=== PATIENT | female | born 1935 | race Caucasian/White ===

== ENCOUNTER 2017-06-30 13:23 | Observation (INO) | payer MEDICARE, MEDICAID ==
[2017-06-30 13:38] LABS: Hematocrit 38.4 % (37.0-47.0); Hemoglobin 12.9 gm/dL (12.5-16.0); Mean Cell Volume 92.8 fl (78-100); Mean Corpuscular Hemoglobin 31.2 pg (27-31); Mean Corpuscular Hgb Conc 33.6 g/dl (32-36); Mean Platelet Volume 10.6 fl (6.0-9.5); Neutrophil # 4.9 K/mm3 (1.3-6.0); Neutrophil % 56.1 % (42-75.0); Platelet Count 183 K/mm3 (150-450); Red Blood Count 4.14 M/mm3 (4.2-5.4); Red Cell Distribution Width 12.6 % (11.5-14.0); White Blood Count 8.7 K/mm3 (4.0-10.5)
--- NOTE | 2017-06-30 13:55 | ERNOTE ---
Chest Pain/Cardiac HPI Chief Complaint: Chest Pain Time Seen by Provider: 06/30/17 13:24 Source: patient Exam Limitations: no limitations Immunizations: IMMUNIZATION HX Immunizations Up to Date Yes History of Influenza Vaccine Yes Hx Pneumococcal Vaccination No Allergies/Adverse Reactions: Allergies lidocaine Allergy (Verified 04/02/16 18:43) Home Medications: HOME MEDICATIONS Aspirin [Aspirin Chewable] 81 mg PO DAILY 04/02/16 [Last Taken Unknown] Benazepril HCl 10 mg PO DAILY 04/02/16 [Last Taken Unknown] Nitrofurantoin/Nitrofuran Mac [Macrobid] 100 mg PO BID #14 capsule 04/02/16 [ Last Taken Unknown] Simvastatin [Zocor] 40 mg PO DAILY 04/02/16 [Last Taken Unknown] Narrative: Patient is very reliable, she has a strong history of coronary artery disease. She presents to the emergency room for having had chest pains proximally 30 minutes prior to presentation. Chest pain was substernal started at rest and did not radiate patient subsequently took 2 nitroglycerin tablets sublingually and chest pain dissipated. By the time she came into our ER she was chest pain- free. Review of Systems - Review of Systems Constitutional: Present: no symptoms reported EYE: Present: no symptoms reported ENT: Present: no symptoms reported Respiratory: Present: no symptoms reported Cardiology: Present: See HPI Gastrointestinal/Abdominal: Present: no symptoms reported Genitourinary: Present: no symptoms reported Musculoskeletal: Present: no symptoms reported Skin: Present: no symptoms reported - Patient's Past Medical History Patient History - Medical: No pertinent hx Patient History - Cardiac/Respiratory: Angina Patient History - Cancer: No Hx of Cancer Patient History - Surgical Procedures: Appendectomy, Cataracts, Cardiac stent, C -Section, Hysterectomy, Other Patient History - Other: None - Family History Father Family History - Medical: No pertinent hx Family History - Cardiac/Respiratory: History Unknown, Cardiac Arrest Family History - Cancer: No pertinent family hx - Social History Living Situations: alone Abuse History: No History of abuse Psych History: No pertinent hx Smoking Status: Never smoker Have you smoked in the past 12 months: No Do you dip or chew tobacco: No Patient requests Smoking Cessation Consult: No Initiate information on Smoking Cessation: No Alcohol Use: none Drug Use: none - Immunizations Immunizations Up to Date: Yes Hx Pneumococcal Vaccination: No History of Influenza Vaccine: Yes Physical Exam - Physical Exam General Appearance: Present: wd/wn, alert, no apparent distress Head Exam: Present: normal inspection, no evidence of injury Ears, Nose, Throat: Present: normal ENT inspection Neck: Present: normal inspection, nontender Respiratory: Present: no respiratory distress, normal breath sounds, no accessory muscle use, chest nontender, lungs clear Cardiovascular/Chest: Present: regular rate, rhythm, no murmur, normal peripheral pulses Gastrointestinal/Abdominal: Present: normal bowel sounds, nontender, nondistended ED Progress - Results and Orders Patient's Lab Results:: I have reviewed the patient's lab results. - Vital Signs Patient's Vital Signs:: I have reviewed the patient's vital signs. Vital Signs: Vital Signs 06/30/17 13:24 Temperature 36.8 C Pulse Rate 76 Respiratory 19 Rate Blood Pressure 149/71 O2 Sat by Pulse 98 Oximetry - EKG EKG: NSR EKG read: Interp. by me - X-Ray X-Ray #1 X-Ray: chest - Progress/Reassessment Chief Complaint: Chest Pain Plan - Plan Plan: Patient does have a history of coronary artery disease she has hypertension and hyperlipidemia, her chest pain did disappear with 2 nitroglycerin sublingually and she will be admitted to the [facility] observation unit Departure Clinical Impression: Chest pain at rest - Departure Disposition: [facility] Condition: Good
[2017-06-30 13:57] LABS: ALT 16 U/L (19-67); AST 16 U/L (0-48); Albumin * 3.9 gm/dl (3.4-5.0); Alkaline Phosphatase * 69 U/L (50-170); Anion Gap 13.4 mmol/L (6.8-13.8); Bilirubin, Total 0.7 mg/dL (0.0-1.1); Blood Urea Nitrogen 13 mg/dL (3-23); Ca. Corrected For Albumin 8.8 mg/dL (8.4-10.2); Carbon Dioxide 24.2 mmol/L (24-32.6); Chloride 102 mmol/L (97-106); Glucose * 172 mg/dL (70-110); Potassium 3.6 mmol/L (3.4-4.6); Sodium 136 mmol/L (132-142); Total Protein 7.2 gm/dL (6.2-8.2); Troponin I Less than 0.017 ng/ml (0.00-0.10)
--- NOTE | 2017-06-30 22:18 | HP ---
Chief Complaint - Chief Complaint Date of Service: 06/30/17 Time of Service: 21:00 Chief Complaint: chest pain History of Present Illness: 81 years old female adm to the hospital from ER with reports of chest pain that dissipated before been admitted. PMH significant for CAD S/P stent, Hyperlipidemia and hypertension. pt stated she was at home resting when she felt sudden onset of non radiating chest pain. No associated s/s, she denies palpitation, nausea, vomiting, diaphoresis, headache and blurred vision. pt stated she took nitro tabs x2 at home but the pain began to dissipated and resolved fully while in ER. She have follow up appt with service rig operator in 1-3 weeks. In ER troponin x2 negative and EKG- NSR. Plan of care discussed with pt she verbalized understanding and agree. - Patient's Past Medical History Patient History - Medical: No pertinent hx Patient History - Cardiac/Respiratory: Angina, Hypertension, Hyperlipidemia Patient History - Cancer: No Hx of Cancer Patient History - Surgical Procedures: Appendectomy, Cataracts, Cardiac stent, C -Section, Hysterectomy, T & A, Other Patient History - Other: None - Family History Father Family History - Medical: No pertinent hx Family History - Cardiac/Respiratory: History Unknown, Cardiac Arrest Family History - Cancer: No pertinent family hx Mother Family History - Medical: Alzheimer's Disease Family History - Cardiac/Respiratory: No pertinent hx Family History - Cancer: No pertinent family hx - Social History Living Situations: alone - Snf housing Abuse History: No History of abuse Psych History: No pertinent hx Smoking Status: Never smoker Have you smoked in the past 12 months: No Do you dip or chew tobacco: No Patient requests Smoking Cessation Consult: No Initiate information on Smoking Cessation: No Alcohol Use: none Drug Use: none - Immunizations Immunizations Up to Date: Yes Hx Pneumococcal Vaccination: No History of Influenza Vaccine: Yes Review Of Systems (GEN) - Review of Systems Generalized/Overall Review: Present: No Symptoms Reported EENTM: Present: No Symptoms Reported Respiratory: Present: No Symptoms Reported Cardiac: Present: No Symptoms Reported Abdominal: Present: Constipation Genitourinary: Present: No Symptoms Reported Musculoskeletal: Present: No Symptoms Reported Neurological: Present: No Symptoms Reported Skin: Present: No Symptoms Reported Endocrine: Present: No Symptoms Reported Allergies/Adverse Reactions: Allergies Allergy/AdvReac Type Severity Reaction Status Date / Time lidocaine Allergy Verified 06/30/17 17:42 Home Medications: HOME MEDICATIONS Aspirin [Aspirin Chewable] 81 mg PO DAILY 04/02/16 [Last Taken Unknown] Benazepril HCl 10 mg PO DAILY 04/02/16 [Last Taken Unknown] Simvastatin [Zocor] 40 mg PO DAILY 04/02/16 [Last Taken Unknown] Exam - Exam Vital Signs: Vital Signs - Last Taken Temp 37.0 C 06/30/17 18:28 Pulse 80 06/30/17 18:28 Resp 20 06/30/17 18:28 BP 145/78 06/30/17 18:28 Pulse Ox 99 06/30/17 18:28 Constitutional: Present: Alert, Oriented x3, Cooperative, No distress, Elderly ENT Exam: Present: hearing grossly normal Eye Exam: bilateral eye: normal inspection Neck: Present: full range of motion Back Exam: Present: normal inspection Breasts: Present: Exam deferred Respiratory: Present: chest non-tender, lungs clear, normal breath sounds, no respiratory distress, no accessory muscle use Cardiovascular/Chest: Present: normal peripheral pulses, regular rate, rhythm, no chest tenderness, no edema, no gallop Peripheral Pulses: dorsalis-pedis (R): 3+, dorsalis-pedis (L): 3+ Abdomen: Present: Normal bowel sounds, soft, nontender, nondistended, no rebound tenderness /Rectal: Present: Exam deferred Extremity: Present: normal range of motion, non-tender, normal inspection Skin Exam: Present: normal color, warm/dry Neurologic: Present: oriented x 3 Appearance: Present: appropriate appearance Eye contact: Present: cooperative Thoughts: Present: normal thought pattern Diagnostic Studies: Laboratory Results WBC 8.7 K/mm3 (4.0-10.5) 06/30/17 13:30 RBC 4.14 M/mm3 (4.2-5.4) L 06/30/17 13:30 Hgb 12.9 gm/dL (12.5-16.0) 06/30/17 13:30 Hct 38.4 % (37.0-47.0) 06/30/17 13:30 MCV 92.8 fl (78-100) 06/30/17 13:30 MCH 31.2 pg (27-31) H 06/30/17 13:30 MCHC 33.6 g/dl (32-36) 06/30/17 13:30 RDW 12.6 % (11.5-14.0) 06/30/17 13:30 Plt Count 183 K/mm3 (150-450) 06/30/17 13:30 MPV 10.6 fl (6.0-9.5) H 06/30/17 13:30 Immature Gran % (Auto) 0.20 % (0.001-0.429) 06/30/17 13:30 Immature Gran # (Auto) 0.02 K/mm3 (0.000-0.0310) 06/30/17 13:30 Neutrophils % 56.1 % (42-75.0) 06/30/17 13:30 Lymphocytes % 33.8 % (20-51) 06/30/17 13:30 Monocytes % 9.7 % (0.0-9) H 06/30/17 13:30 Eosinophils % 0.0 % (0.0-3.0) 06/30/17 13:30 Basophils % 0.2 % (0.0-1.0) 06/30/17 13:30 Nucleated RBC % 0.0 k/mm3 (0-1) 06/30/17 13:30 Neutrophils # 4.9 K/mm3 (1.3-6.0) 06/30/17 13:30 Lymphocytes # 3.0 k/mm3 (1.5-3.5) 06/30/17 13:30 Monocytes # 0.9 k/mm3 (0.0-1.0) 06/30/17 13:30 Eosinophils # 0.0 k/mm3 (0.0-0.7) 06/30/17 13:30 Absolute Basophils 0.0 k/mm3 (0.0-0.1) 06/30/17 13:30 Sodium 136 mmol/L (132-142) 06/30/17 13:30 Plasma Sodium 137 mmol/L (130-142) 06/30/17 13:30 Potassium 3.6 mmol/L (3.4-4.6) 06/30/17 13:30 Chloride 102 mmol/L (97-106) 06/30/17 13:30 Carbon Dioxide 24.2 mmol/L (24-32.6) 06/30/17 13:30 Anion Gap 13.4 mmol/L (6.8-13.8) 06/30/17 13:30 BUN 13 mg/dL (3-23) 06/30/17 13:30 Creatinine 0.93 mg/dL (0.4-1.4) 06/30/17 13:30 Est GFR (Non-Af Amer) 61 mL/min (60-130) 06/30/17 13:30 BUN/Creatinine Ratio 14.0 (9.0-21.6) 06/30/17 13:30 Random Glucose 172 mg/dL (70-110) H 06/30/17 13:30 Calcium 9.0 mg/dL (7.9-10.9) 06/30/17 13:30 Calcium Adj for Albumin 8.8 mg/dL (8.4-10.2) 06/30/17 13:30 Total Bilirubin 0.7 mg/dL (0.0-1.1) 06/30/17 13:30 AST 16 U/L (0-48) 06/30/17 13:30 ALT 16 U/L (19-67) L 06/30/17 13:30 Alkaline Phosphatase 69 U/L (50-170) 06/30/17 13:30 Troponin I Less than 0.017 ng/ml (0.00-0.10) 06/30/17 19:05 Total Protein 7.2 gm/dL (6.2-8.2) 06/30/17 13:30 Albumin 3.9 gm/dl (3.4-5.0) 06/30/17 13:30 CXR: borderline cardiomegaly, COPD Assessment/Plan - Narrative Narrative: Chest pain Pt report chest pain while at rest, resolved in 30 minutes with nitro tab x2 CXR: Cardiomegaly, COPD. No acute cardiopulmonary process In ER troponin x2 negative EKG -NSR Continue with telemetry monitoring Continue with home dose of statin Hx CAD-pt is S/P cardiac stent several years ago Serial trop and EKG pending Consider out-pt stress test and follow up with service rig operator. Hyperlipidemia- continue with home dose of zocor. CAD- s/p stent Constipation Miralax Code status: DNR GI ppx:pepcid VTE ppx: Ambulate Time 35 minutes and case discussed with attending - Assessment/Plan (1) Chest pain at rest Problem: Acute (2) Constipation Problem: Chronic (3) Hyperlipidemia Problem: Chronic
[2017-06-30] MEDS: POLYETHYLENE GLYCOL 3350 119 GM BTL PO SCH (23:32)
[2017-07-01 06:27] LABS: Chol/HDL Risk Ratio 2.3 mg/dL (3.3-4.4)
[2017-07-01] MEDS ORDERED: SIMVASTATIN 40 MG TABLET PO SCH ×2 (09:00→21:00)
[2017-07-01] MEDS ORDERED: ASPIRIN 81 MG TAB.CHEW PO SCH (09:00)
[2017-07-01] MEDS ORDERED: ENALAPRIL MALEATE 5 MG TABLET PO SCH (09:00)
[2017-07-01] MEDS: POLYETHYLENE GLYCOL 3350 119 GM BTL PO SCH (09:46)
--- NOTE | 2017-07-01 13:10 | DS ---
(1) Chest pain, unspecified Problem: Acute Qualifiers: Chest pain type: unspecified Qualified Code(s): R07.9 - Chest pain, unspecified (2) History of coronary artery disease Problem: Chronic (3) Hypertension Problem: Chronic Qualifiers: Hypertension type: unspecified Qualified Code(s): I10 - Essential (primary ) hypertension (4) Hyperlipidemia Problem: Chronic Qualifiers: Hyperlipidemia type: unspecified Qualified Code(s): E78.5 - Hyperlipidemia , unspecified Description of Stay: DATE OF ADMISSION: 06/30/2017. DATE OF DISCHARGE: 07/01/2017. DIAGNOSTICS: NONE. DISCHARGE SUMMARY: Heavenly Bledsoe a 81-year-old WF with a history of HTN, HLD, CAD[non-Q wave PA with stents to LAD and LT CX in 2002] who was admitted to the hospital for evaluation of chest pain relieved by nitroglycerin 2 prior to arrival. EKG and troponin are unremarkable in ER. Patient was admitted overnight and she had no recurrence of chest pain. EKG and cardiac markers were also unremarkable. The patient was discharged in a stable condition the next day and she has a follow-up with her generation manager in the next month. Procedures Performed: none Results and Findings: Laboratory Tests 06/30/17 13:30 WBC 8.7 Hgb 12.9 Hct 38.4 Plt Count 183 06/30/17 13:30 Plasma Sodium 137 Potassium 3.6 Chloride 102 Carbon Dioxide 24.2 BUN 13 Creatinine 0.93 Est GFR (Non-Af Amer) 61 Random Glucose 172 H Calcium Adj for Albumin 8.8 Total Bilirubin 0.7 AST 16 ALT 16 L Alkaline Phosphatase 69 Total Protein 7.2 Albumin 3.9 06/30/17 06/30/17 06/30/17 13:30 19:05 23:05 Troponin I Less than 0.017 Less than 0.017 0.025 07/01/17 06:00 Triglycerides 108 Cholesterol 136 LDL Cholesterol 57 L HDL Cholesterol 57 Discharge Disposition: Home self care Disposition: Home self-care Condition: Undetermined Discharge Diet: Low salt, Low fat/chol, High Fiber Problem Oriented Discharge Instructions to Patient/Family: Chest Wall Pain, [id number] Additional Patient Instructions (free text): NUC Treadmill Stress Test 07/05 at 7:00. Nothing to eat or drink after midnight prior to test. No caffeine 8hr before test and no medication the morning of test but bring with you. please wear comfortable cloths and shoes for test. Follow up with Emely Sanz 07/15 at 4:30 Complete Home Medications List: Complete Home Medication List: Aspirin [Aspirin Chewable] 81 mg PO DAILY 04/02/16 Benazepril HCl 10 mg PO DAILY 04/02/16 Simvastatin [Zocor] 80 mg PO DAILY 04/02/16 Celecoxib 200 mg PO DAILY 07/20/17 Nitroglycerin 0.4 mg SL PRN PRN 07/20/17 Amb Orders for Discharge: NUC Treadmill Stress Complete Time Frame: 07/09/17, Location: Determined By Patient
[2017-07-01 15:14] VITALS: BP 135/44
== END 2017-07-01 15:15 | disposition home or self-care (01) ==
LOC: ER 13:23 → MS 14:08
PROVIDERS: ADMIT Internal Medicine; ATTEND Internal Medicine
DX: R07.9 Chest pain, unspecified (principal); I25.119 Atherosclerotic heart disease of native coronary artery with unspecified angina pectoris; I10 Essential (primary) hypertension; E78.5 Hyperlipidemia, unspecified; K59.00 Constipation, unspecified; Z68.22 Body mass index [BMI] 22.0-22.9, adult
CPT/HCPCS: 36415; 71020; 80053; 80061; 84484; 85025; 93005; 99283; G0378

== ENCOUNTER 2017-07-20 08:05 | Emergency (ER) | payer MEDICARE, MEDICAID ==
[2017-07-20] MEDS ORDERED: ASPIRIN 81 MG TAB.CHEW PO ONE (08:19)
[2017-07-20] MEDS ORDERED: ASPIRIN 81 MG TAB.CHEW ONE (08:25)
--- NOTE | 2017-07-20 08:31 | ERNOTE ---
Chest Pain/Cardiac HPI Chief Complaint: Chest Pain Time Seen by Provider: 07/20/17 08:05 Source: patient Exam Limitations: no limitations Immunizations: IMMUNIZATION HX Immunizations Up to Date Yes History of Influenza Vaccine Yes Hx Pneumococcal Vaccination More Information Required Allergies/Adverse Reactions: Allergies lidocaine Allergy (Verified 06/30/17 17:42) Home Medications: HOME MEDICATIONS Aspirin [Aspirin Chewable] 81 mg PO DAILY 04/02/16 [Last Taken Unknown] Benazepril HCl 10 mg PO DAILY 04/02/16 [Last Taken Unknown] Simvastatin [Zocor] 80 mg PO DAILY 04/02/16 [Last Taken Unknown] Celecoxib 200 mg PO DAILY 07/20/17 [Last Taken Unknown] Nitroglycerin 0.4 mg SL PRN PRN 07/20/17 [Last Taken Unknown] Narrative: About an hour ago patient started to have central chest pain. She was awake already but still in bed, states that she also was very sweaty, took three nitro and started to not feel well, found herself sitting on the floor just outside the kitchen, might have passed out, denies any injury, does not think she hit her head as she was sitting. Currently her chest pain has resolved, she 'just feel weird' She has a history of CAD, had stents placed by Dr Chavira a few years ago, was admitted last months for chest pain and states that she had a stress test that was normal Timing: gone now Severity/Quality: pressure Location: central Chest Pain Radiation: no radiation Activities at Onset: rest Modifying Factors - Improves: Present: nitroglycerin Modifying Factors - Worsens: Present: nothing Nitro Today/Relief: 0.4 mg x 3 Aspirin Treatment Today: no aspirin today Associated Symptoms: Present: syncope - after nitro?, diaphoresis. Absent: dizziness, heartburn, nausea, vomiting Prior Chest Pain/Cardiac Workup: Reports: prior chest pain, cardiac cath Prior Treatment: Reports: recently seen - Patient's Past Medical History Patient History - Medical: No pertinent hx Patient History - Cardiac/Respiratory: Angina, Hypertension, Hyperlipidemia Patient History - Cancer: No Hx of Cancer Patient History - Surgical Procedures: Appendectomy, Cataracts, Cardiac stent, C -Section, Hysterectomy, T & A, Other Patient History - Other: None - Family History Father Family History - Medical: No pertinent hx Family History - Cardiac/Respiratory: History Unknown, Cardiac Arrest Family History - Cancer: No pertinent family hx Mother Family History - Medical: Alzheimer's Disease Family History - Cardiac/Respiratory: No pertinent hx Family History - Cancer: No pertinent family hx - Social History Living Situations: alone Abuse History: No History of abuse Psych History: No pertinent hx Smoking Status: Never smoker Have you smoked in the past 12 months: No Do you dip or chew tobacco: No Alcohol Use: none Drug Use: none - Immunizations Immunizations Up to Date: Yes Hx Pneumococcal Vaccination: More Information Required to Determine History of Influenza Vaccine: Yes Physical Exam - Physical Exam General Appearance: Present: wd/wn, alert, no apparent distress Head Exam: Present: normal inspection, no evidence of injury Neck: Present: normal inspection, nontender, supple, full range of motion Respiratory: Present: no respiratory distress, normal breath sounds, no accessory muscle use, lungs clear Cardiovascular/Chest: Present: regular rate, rhythm, no murmur Gastrointestinal/Abdominal: Present: nontender Extremity Exam: Present: no edema Neurological Exam: Present: alert, oriented, normal mood/affect, no motor/ sensory deficits Skin Exam: Present: normal color, warm/dry ED Progress - Results and Orders Patient's Lab Results:: I have reviewed the patient's lab results. - Vital Signs Patient's Vital Signs:: I have reviewed the patient's vital signs. Vital Signs: Vital Signs 07/20/17 08:13 Temperature 35.5 C L Pulse Rate 62 Respiratory 26 H Rate Blood Pressure 164/79 O2 Sat by Pulse 100 Oximetry - EKG EKG: NSR, RBBB, ST depression - V3-6 possibley related to RBBB, seem more pronounced than on EKG from 06/30/17, other - posterior EKG shows no ST elevating on V7-9 EKG read: Interp. by me - X-Ray X-Ray #1 X-Ray: chest - no acute changes, hyperinflated Interpretation: Interp. by me - Progress/Reassessment Chief Complaint: Chest Pain Progress Note-Subjective: 07/20/17 09:13 nuclear stress test 07/05/2017 read as normal 07/20/17 09:22 no chest pain, discussed test results Departure Clinical Impression: Chest pain, unspecified Qualifiers: Chest pain type: precordial pain Qualified Code(s): R07.2 - Precordial pain - Departure Disposition: Home self-care Condition: Stable Instructions: Chest Wall Pain, [id number] Additional Instructions: call Dr Barker after the weekend for follow up Referrals: Priyank Barker MD [Associate] -
[2017-07-20 08:39] LABS: Hematocrit 35.9 % (37.0-47.0); Hemoglobin 12.1 gm/dL (12.5-16.0); Mean Corpuscular Hemoglobin 31.3 pg (27-31); Mean Corpuscular Hgb Conc 33.7 g/dl (32-36); Mean Platelet Volume 10.5 fl (6.0-9.5); Neutrophil % 46.8 % (42-75.0); Platelet Count 158 K/mm3 (150-450); Red Blood Count 3.86 M/mm3 (4.2-5.4); Red Cell Distribution Width 12.5 % (11.5-14.0); White Blood Count 6.4 K/mm3 (4.0-10.5)
[2017-07-20 08:51] LABS: Prothrombin Time (Patient) 9.9 Seconds (9.0-11.0)
[2017-07-20 08:59] LABS: ALT 16 U/L (19-67); AST 16 U/L (0-48); Albumin * 3.7 gm/dl (3.4-5.0); Alkaline Phosphatase * 74 U/L (50-170); Anion Gap 13.7 mmol/L (6.8-13.8); BUN/Creatinine Ratio 13.1 (9.0-21.6); Bilirubin, Total 0.4 mg/dL (0.0-1.1); Blood Urea Nitrogen 14 mg/dL (3-23); Ca. Corrected For Albumin 9.2 mg/dL (8.4-10.2); Calcium * 9.3 mg/dL (7.9-10.9); Carbon Dioxide 23.5 mmol/L (24-32.6); Chloride 102 mmol/L (97-106); Glucose * 171 mg/dL (70-110); Potassium 4.2 mmol/L (3.4-4.6); Sodium 135 mmol/L (132-142); Total Protein 6.8 gm/dL (6.2-8.2); Troponin I Less than 0.017 ng/ml (0.00-0.10)
[2017-07-20 09:00] LABS: INR 0.99 INR (0.90-1.10); Partial Thrombolplastin Time 25.3 Seconds (24-32)
[2017-07-20 09:43] VITALS: BP 137/93
== END 2017-07-20 09:43 | disposition home or self-care (01) ==
LOC: ER 08:05
DX: R07.2 Precordial pain (principal)

== ENCOUNTER 2018-06-28 10:13 | Observation (INO) | payer MEDICAID, MEDICARE ==
--- NOTE | 2018-06-28 10:37 | ERNOTE ---
Back Pain ER HPI Date of Service: 06/28/18 Presenting Symptoms: hx chronic back pain Time Seen by Provider: 06/28/18 10:36 Source: patient Exam Limitations: no limitations Immunizations: IMMUNIZATION HX Immunizations Up to Date Yes History of Influenza Vaccine No Hx Pneumococcal Vaccination No Allergies/Adverse Reactions: Allergies lidocaine Allergy (Verified 06/28/18 10:27) Home Medications: HOME MEDICATIONS Aspirin [Aspirin Chewable] 81 mg PO DAILY 04/02/16 [Last Taken Unknown] Benazepril HCl 10 mg PO DAILY 04/02/16 [Last Taken Unknown] Simvastatin [Zocor] 20 mg PO DAILY 04/02/16 [Last Taken Unknown] Nitroglycerin 0.4 mg SL PRN PRN 07/20/17 [Last Taken Unknown] Amlodipine Besylate 5 mg PO DAILY 11/02/17 [Last Taken Unknown] Calcium Carb, Citrate/Vit D3 [Calcium + D3 ER Tablet] 1 each PO DAILY 11/02/17 [Last Taken Unknown] Gabapentin 300 mg PO TID 06/28/18 [Last Taken Unknown] Lidocaine [Lidocaine Pain Relief] 1 each TP PRN PRN 06/28/18 [Last Taken Unknown] traMADol HCL [Tramadol HCl] 50 mg PO PRN PRN 06/28/18 [Last Taken Unknown] - Pain Score Pain Score #1 Pain Score: 8 Narrative: The patient is a 82 year old female who presents for chest pain which has been present since 0800 this am. There are associated symptoms of dyspnea, chronic mid back pain and fatigue. The patient reports pain to left anterior chest, 8/10. There are no alleviating factors. There are no aggravating factors. Previous treatments have included: none. The past medical history includes: cardiac stent, HTN, chronic back pain and high cholesterol. The social history is negative for smoking. The patient has had no ill contacts. Patient states pain does not feel like chronic back pain. Patient states previous symptoms with placement of cardiac stent began with chest burning. Timing: Reports: constant Quality/Severity: Reports: other - tighness, band around chest Location of pain: Reports: other - left anterior chest Activities at Onset: Reports: rest Recent Injury?: Reports: no Review of Systems - Review of Systems Constitutional: Present: fatigue. Absent: recent illness, fever EYE: Present: no symptoms reported ENT: Absent: ear pain, nasal drainage, sore throat Respiratory: Present: shortness of breath. Absent: cough, wheezing Cardiology: Present: chest pain. Absent: edema Gastrointestinal/Abdominal: Absent: nausea, vomiting, diarrhea Genitourinary: Present: no symptoms reported Skin: Absent: rash Neurological: Present: dizziness/light-headedness Endocrine: Present: no symptoms reported Hematologic/Lymphatic: Present: no symptoms reported Psych: Present: no symptoms reported All Other Systems: All systems neg except as marked Social History: Preferred Language Grenadian Do you have any jew or No cultural preference? Smoking Status Never smoker Have you smoked in the past 12 No months Do you dip or chew tobacco No Abuse History No History of abuse Psych History No pertinent hx Alcohol Use none Drug Use none Physical Exam - Physical Exam General Appearance: Present: wd/wn, alert, mild distress Head Exam: Present: normal inspection Eye Exam: Normal inspection: bilateral Ears, Nose, Throat: Present: normal ENT inspection, normal pharynx Neck: Present: normal inspection Respiratory: Present: no respiratory distress, normal breath sounds, no accessory muscle use, lungs clear, other - tachypnea. Absent: chest tenderness Cardiovascular/Chest: Present: regular rate, rhythm, no murmur Peripheral Pulses: N=norm/S=strong/W=weak/B=bound/A=absent: Radial (L): Normal Gastrointestinal/Abdominal: Present: normal bowel sounds, nondistended, soft, no organomegaly, tenderness - suprapubic Back Exam: Present: normal inspection, no vertebral tenderness. Absent: muscle spasm Neurological Exam: Present: alert, oriented, normal mood/affect - slightly anxious Skin Exam: Present: normal color, warm/dry ED Progress - Date and Time Seen: Date and Time: 06/28/18 11:58 Discussed with and patient will be admitted for observation CP. 06/28/18 12:14 Patient after receiving nitroglycerin became hypotensive, tachypneic and feeling unwell. Liter bolus of normal saline initiated and patient placed in the supine positioning. EKG obtained without noted changes from previous. Will continue with plan of care for observation admission for chest pain with monitoring. - Results and Orders Patient's Lab Results:: I have reviewed the patient's lab results. - Vital Signs Patient's Vital Signs:: I have reviewed the patient's vital signs. Vital Signs: Vital Signs 06/28/18 10:22 Temperature 36.5 C Pulse Rate 66 Respiratory Rate 16 Blood Pressure 128/52 O2 Sat by Pulse Oximetry 100 - EKG EKG: NSR - with PAC's, RBBB EKG read: Reviewed by me EKG Comments: Unchanged from previous EKG dated 11/10/17. Reviewed with . 2nd EKG after increased chest pain remains to show NSR with RBBB, no change from previous. - X-Ray X-Ray #1 X-Ray: chest Interpretation: Reviewed by me X-ray Comments: Preliminary interpretation: Hyperinflated lungs without acute cardiopulmonary abnormalities. Reviewed with X-RAY REPORT ~[id number] RAD/Chest PA & Lateral *~ Exam Date: 06/28/2018 11:18 Ordering Physician: Kathryn Bajwa HISTORY: Chest Pain TWO VIEW CHEST Comparison: 11/10/2017 Technique: Upright frontal and lateral views of the chest were obtained. Findings: The cardiac silhouette is within normal limits of size. The mediastinum and hilum are with in normal limits. The lung mcmanus demonstrate mild hyperinflation mild scattered fibrotic change, but are clear. I do not see evidence for an infiltrate, effusion or pulmonary edema. IMPRESSION: 1. HYPERINFLATION. 2. NO ACUTE CARDIOPULMONARY PROCESS. Electronically signed by Priyank Freitas M.D.. - Progress/Reassessment Chief Complaint: Back Pain Departure Clinical Impression: Chest pain Qualifiers: Chest pain type: unspecified Qualified Code(s): R07.9 - Chest pain, unspecified - Departure Disposition: Still a patient Condition: Stable
[2018-06-28] MEDS ORDERED: ASPIRIN 81 MG TAB.CHEW PO ONE (10:41)
[2018-06-28] MEDS ORDERED: ASPIRIN 81 MG TAB.CHEW ONE (10:52)
[2018-06-28 10:58] LABS: Hematocrit 35.6 % (37.0-47.0); Hemoglobin 12.3 gm/dL (12.5-16.0); Mean Cell Volume 91.8 fl (78-100); Mean Corpuscular Hemoglobin 31.7 pg (27-31); Mean Corpuscular Hgb Conc 34.6 g/dl (32-36); Mean Platelet Volume 10.6 fl (8-12.5); Neutrophil # 3.1 K/mm3 (1.3-6.0); Neutrophil % 50.8 % (42-75.0); Platelet Count 194 K/mm3 (150-450); Red Blood Count 3.88 M/mm3 (4.2-5.4); Red Cell Distribution Width 12.7 % (11.5-14.0)
[2018-06-28 11:07] LABS: Prothrombin Time (Patient) 10.5 Seconds (9.0-11.0)
[2018-06-28 11:09] LABS: INR 1.05 INR (0.90-1.10); Partial Thrombolplastin Time 25.1 Seconds (24-32)
[2018-06-28 11:16] LABS: ALT 14 U/L (19-67); AST 18 U/L (0-48); Alkaline Phosphatase * 61 U/L (50-170); Anion Gap 13.7 mmol/L (6.8-13.8); BUN/Creatinine Ratio 15.8 (9.0-21.6); Bilirubin, Total 0.6 mg/dL (0.0-1.1); Blood Urea Nitrogen 19 mg/dL (3-23); Ca. Corrected For Albumin 9.5 mg/dL (8.4-10.2); Calcium * 9.8 mg/dL (7.9-10.9); Carbon Dioxide 24.8 mmol/L (24-32.6); Chloride 100 mmol/L (97-106); Glucose * 128 mg/dL (70-110); Potassium 3.5 mmol/L (3.4-4.6); Sodium 135 mmol/L (132-142); Troponin I Less than 0.017 ng/mL (0.00-0.10)
[2018-06-28] MEDS ORDERED: NITROGLYCERIN 0.4 MG/TAB BTL SL ONE (11:38)
[2018-06-28 11:57] LABS: Urine Appearance Clear (CLEAR); Urine Bilirubin Negative (NEGATIVE); Urine Blood Negative /ul (NEGATIVE); Urine Color Yellow; Urine Nitrite Negative (NEGATIVE); Urine Protein Negative (NEGATIVE); Urine Urobilinogen Normal (NORMAL)
[2018-06-28 11:58] LABS: Urine WBC 0-5 /hpf (0-5)
[2018-06-28 11:59] LABS: Urine Ketone 50 mg/dL (NEGATIVE)
[2018-06-28 12:04] LABS: Urine Bacteria None Seen; Urine RBC None Seen /hpf (0-5)
[2018-06-28] MEDS ORDERED: NORMAL SALINE 1,000 ML IV ONE (12:49)
[2018-06-28] MEDS ORDERED: NORMAL SALINE 500 ML IV ONE (12:51)
--- NOTE | 2018-06-28 13:58 | HP ---
Chief Complaint - Chief Complaint Date of Service: 06/28/18 Time of Service: 13:49 Chief Complaint: chest pain History of Present Illness: Heavenly Norris, is an 82-year-old white female, patient of Nyasia Sanz, with past medical history of coronary artery disease status post stenting to the LAD and circumflex in 2019, hypertension, hyperlipidemia, who was admitted on 06/28/2018 because of chest pain. The patient woke up this morning with back pain which then went to her left chest area and stayed there for about a couple of hours. She described it as pressure-like, 8/10, nonradiating and not associated with nausea, vomiting or diaphoresis. She did have some dizziness. She says this was not like her usual back pain. She was then brought to the emergency room were her pain was starting to get better but got resolved with taking in n itroglycerin. Her first EKG showed normal sinus 15 with right bundle branch block which is not new and her troponin was within normal limits. Patient states previous symptoms with placement of cardiac stent began with chest burning. She was then admitted under our chest pain protocol. Medical History (Last Updated 06/28/18 @ 13:20 by Carol Simpson RN) Hyperlipidemia Hypertension Surgical History: Surgical History (Last Updated 06/28/18 @ 13:20 by Carol Simpson RN) History of heart artery stent Family History: Family History (Last Updated 06/28/18 @ 13:21 by Carol Simpson RN) Mother Dementia Son Social History: Patient Lives/Resources Home Utilized Preferred Language Divehi Do you have any hoahaoism or No cultural preference? Smoking Status Never smoker Have you smoked in the past 12 No months Do you dip or chew tobacco No Abuse History No History of abuse Psych History No pertinent hx Alcohol Use none Drug Use none Review Of Systems (GEN) - Review of Systems Generalized/Overall Review: Absent: Weakness, Chills, Fever Respiratory: Present: Shortness of Breath. Absent: Cough, Orthopnea Cardiac: Present: Chest Pain. Absent: Edema, Palpitations Abdominal: Absent: Nausea, Vomiting Genitourinary: Absent: Urgency, Frequency Immunizations: IMMUNIZATION HX Immunizations Up to Date Yes History of Influenza Vaccine No Hx Pneumococcal Vaccination No Allergies/Adverse Reactions: Allergies Allergy/AdvReac Type Severity Reaction Status Date / Time lidocaine Allergy Verified 06/28/18 13:22 Home Medications: HOME MEDICATIONS Aspirin [Aspirin Chewable] 81 mg PO DAILY 04/02/16 [Last Taken Unknown] Benazepril HCl 10 mg PO HS 04/02/16 [Last Taken Unknown] Simvastatin [Zocor] 10 mg PO HS 04/02/16 [Last Taken Unknown] Nitroglycerin 0.4 mg SL PRN PRN 07/20/17 [Last Taken Unknown] Amlodipine Besylate 5 mg PO HS 11/02/17 [Last Taken Unknown] Calcium Carb, Citrate/Vit D3 [Calcium + D3 ER Tablet] 1 each PO DAILY 11/02/17 [Last Taken Unknown] Gabapentin 300 mg PO TID 06/28/18 [Last Taken Unknown] traMADol HCL [Tramadol HCl] 50 mg PO PRN PRN 06/28/18 [Last Taken Unknown] Exam - Exam Vital Signs: Vital Signs - Last Taken Temp 36.6 C 06/28/18 12:18 Pulse 52 L 06/28/18 12:45 Resp 20 06/28/18 12:45 BP 160/56 H 06/28/18 12:45 Pulse Ox 98 06/28/18 12:45 Constitutional: Present: Alert, Oriented x3, Cooperative ENT Exam: Present: hearing grossly normal Eye Exam: bilateral eye: normal inspection, PERRL, EOMI Neck: Present: supple Respiratory: Present: normal breath sounds, No rales, No wheezing Cardiovascular/Chest: Present: regular rate, rhythm, no JVD, no murmur Abdomen: Present: Normal bowel sounds, soft, nontender, nondistended Extremity: Present: no pedal edema, no calf tenderness Diagnostic Studies: Abnormal Lab Results 06/28/18 06/28/18 Range/Units 10:50 10:50 RBC 3.88 L (4.2-5.4) M/mm3 Hgb 12.3 L (12.5-16.0) gm/dL Hct 35.6 L (37.0-47.0) % MCH 31.7 H (27-31) pg Monocytes % 9.5 H (0.0-9) % Est GFR (Non-Af Amer) 45 L D (60-130) mL/min Random Glucose 128 H (70-110) mg/dL ALT 14 L (19-67) U/L Laboratory Results WBC 6.0 K/mm3 (4.0-10.5) 06/28/18 10:50 RBC 3.88 M/mm3 (4.2-5.4) L 06/28/18 10:50 Hgb 12.3 gm/dL (12.5-16.0) L 06/28/18 10:50 Hct 35.6 % (37.0-47.0) L 06/28/18 10:50 MCV 91.8 fl (78-100) 06/28/18 10:50 MCH 31.7 pg (27-31) H 06/28/18 10:50 MCHC 34.6 g/dl (32-36) 06/28/18 10:50 RDW 12.7 % (11.5-14.0) 06/28/18 10:50 Plt Count 194 K/mm3 (150-450) 06/28/18 10:50 MPV 10.6 fl (8-12.5) 06/28/18 10:50 Immature Gran % (Auto) 0.20 % (0.001-0.429) 06/28/18 10:50 Immature Gran # (Auto) 0.01 K/mm3 (0.000-0.0310) 06/28/18 10:50 Neutrophils % 50.8 % (42-75.0) 06/28/18 10:50 Lymphocytes % 39.0 % (20-51) 06/28/18 10:50 Monocytes % 9.5 % (0.0-9) H 06/28/18 10:50 Eosinophils % 0.0 % (0.0-3.0) 06/28/18 10:50 Basophils % 0.5 % (0.0-1.0) 06/28/18 10:50 Nucleated RBC % 0.0 k/mm3 (0-1) 06/28/18 10:50 Neutrophils # 3.1 K/mm3 (1.3-6.0) 06/28/18 10:50 Lymphocytes # 2.35 k/mm3 (1.5-3.5) 06/28/18 10:50 Monocytes # 0.6 k/mm3 (0.0-1.0) 06/28/18 10:50 Eosinophils # 0.0 k/mm3 (0.0-0.7) 06/28/18 10:50 Absolute Basophils 0.0 k/mm3 (0.0-0.1) 06/28/18 10:50 PT 10.5 Seconds (9.0-11.0) 06/28/18 10:50 INR (Anticoag Therapy) 1.05 INR (0.90-1.10) 06/28/18 10:50 PTT ([place]) 25.1 Seconds (24-32) 06/28/18 10:50 Sodium 135 mmol/L (132-142) 06/28/18 10:50 Plasma Sodium 135 mmol/L (130-142) 06/28/18 10:50 Potassium 3.5 mmol/L (3.4-4.6) 06/28/18 10:50 Chloride 100 mmol/L (97-106) 06/28/18 10:50 Carbon Dioxide 24.8 mmol/L (24-32.6) 06/28/18 10:50 Anion Gap 13.7 mmol/L (6.8-13.8) 06/28/18 10:50 BUN 19 mg/dL (3-23) D 06/28/18 10:50 Creatinine 1.20 mg/dL (0.4-1.4) 06/28/18 10:50 Est GFR (Non-Af Amer) 45 mL/min (60-130) L D 06/28/18 10:50 BUN/Creatinine Ratio 15.8 (9.0-21.6) 06/28/18 10:50 Random Glucose 128 mg/dL (70-110) H 06/28/18 10:50 Calcium 9.8 mg/dL (7.9-10.9) 06/28/18 10:50 Calcium Adj for Albumin 9.5 mg/dL (8.4-10.2) 06/28/18 10:50 Total Bilirubin 0.6 mg/dL (0.0-1.1) 06/28/18 10:50 AST 18 U/L (0-48) 06/28/18 10:50 ALT 14 U/L (19-67) L 06/28/18 10:50 Alkaline Phosphatase 61 U/L (50-170) 06/28/18 10:50 Troponin I Less than 0.017 ng/mL (0.00-0.10) 06/28/18 10:50 Total Protein 7.0 gm/dL (6.2-8.2) 06/28/18 10:50 Albumin 4.0 gm/dl (3.4-5.0) 06/28/18 10:50 Urine Color Yellow 06/28/18 11:35 Urine Appearance Clear (CLEAR) 06/28/18 11:35 Urine pH 7.0 pH (5.0-7.0) 06/28/18 11:35 Ur Specific [place] 1.020 SP.GR. (1.005-1.010) 06/28/18 11:35 Urine Protein Negative mg/dL (NEGATIVE) 06/28/18 11:35 Urine Glucose (UA) Negative mg/dL (NEGATIVE) 06/28/18 11:35 Urine Ketones 50 mg/dL (NEGATIVE) 06/28/18 11:35 Urine Blood Negative /ul (NEGATIVE) 06/28/18 11:35 Urine Nitrate Negative (NEGATIVE) 06/28/18 11:35 Urine Bilirubin Negative mg/dl (NEGATIVE) 06/28/18 11:35 Urine Urobilinogen Normal EU/dl (NORMAL) 06/28/18 11:35 Ur Leukocyte Esterase Negative /ul (NEGATIVE) 06/28/18 11:35 Urine RBC None seen /hpf (0-5) 06/28/18 11:35 Urine WBC 0-5 /hpf (0-5) 06/28/18 11:35 Ur Epithelial Cells 0-5 /hpf (0-5) 06/28/18 11:35 Urine Bacteria None seen (NONE) 06/28/18 11:35 Urine Culture Comments No culture indicated 06/28/18 11:35 Assessment/Plan - Assessment/Plan (1) Chest pain, unspecified Assessment: r/o ACS. will get serial EKG and troponin. Because of her history of CAD s/p stenting, we bharath schedule her a nuclear pharmacologic stress test as an outpatient. Problem: Acute Qualifiers: Chest pain type: unspecified Qualified Code(s): R07.9 - Chest pain, unspecified (2) History of coronary artery disease Assessment: s/p stenting of LAD and Cx in 2002. Problem: Chronic (3) Hypertension Problem: Chronic Qualifiers: Hypertension type: essential hypertension Qualified Code(s): I10 - Essential (primary) hypertension (4) Hyperlipidemia Problem: Chronic Qualifiers: Hyperlipidemia type: mixed hyperlipidemia Qualified Code(s): E78.2 - Mixed hyperlipidemia
[2018-06-28] MEDS ORDERED: traMADol HCL 50 MG TABLET PO PRN (16:09)
[2018-06-28] MEDS ORDERED: NITROGLYCERIN 0.4 MG/TAB BTL SL PRN (16:09)
[2018-06-28] MEDS: traMADol HCL 50 MG TABLET PO PRN (16:40)
[2018-06-28] MEDS: GABAPENTIN 300 MG CAPSULE PO SCH (16:41)
[2018-06-28] MEDS ORDERED: ENALAPRIL MALEATE 5 MG TABLET PO SCH (21:00)
[2018-06-28] MEDS ORDERED: SIMVASTATIN 40 MG TABLET PO SCH (21:00)
[2018-06-29] MEDS: traMADol HCL 50 MG TABLET PO PRN (04:45)
[2018-06-29] MEDS ORDERED: traMADol HCL 50 MG TABLET PO PRN (08:00)
[2018-06-29] MEDS: GABAPENTIN 300 MG CAPSULE PO SCH ×2 (08:47→12:51)
[2018-06-29] MEDS ORDERED: CALCIUM CARBONATE/VITAMIN D3 1 TAB TABLET PO SCH (09:00)
[2018-06-29] MEDS ORDERED: ASPIRIN 81 MG TAB.CHEW PO SCH (09:00)
--- NOTE | 2018-06-29 10:49 | DS ---
(1) Chest pain, unspecified Diagnosis(s): AMI ruled out. will schedule a nuclear pharmacologic stress test as an outpatient. Problem: Acute Qualifiers: Chest pain type: unspecified Qualified Code(s): R07.9 - Chest pain, unspecified (2) History of coronary artery disease Problem: Chronic (3) Hypertension Problem: Chronic Qualifiers: Hypertension type: essential hypertension Qualified Code(s): I10 - Essential (primary) hypertension (4) Hyperlipidemia Problem: Chronic Qualifiers: Hyperlipidemia type: mixed hyperlipidemia Qualified Code(s): E78.2 - Mixed hyperlipidemia Description of Stay: Heavenly Norris, is an 82-year-old white female, patient of Nyasia Sanz, with past medical history of coronary artery disease status post stenting to the LAD and circumflex in 2019, hypertension, hyperlipidemia, who was admitted on 06/28/2018 because of chest pain. The patient woke up this morning with back pain which then went to her left chest area and stayed there for about a couple of hours. She described it as pressure-like, 8/10, nonradiating and not associated with nausea, vomiting or diaphoresis. She did have some dizziness. She says this was not like her usual back pain. She was then brought to the emergency room were her pain was starting to get better but got resolved with taking in nitroglycerin. Her first EKG showed normal sinus with right bundle branch block which is not new and her troponin was within normal limits. Patient states previous symptoms with CAD with placement of cardiac stent began with chest burning. She was then admitted under our chest pain protocol. She was ruled out for AMI. Her telemetry did show an episode of NSVT, asymptomatic. she had a tress test 1 year ago which was normal . Bur because of her NSVT, will discharge her and schedule her a nuclear pharmacologic stress test and a 48 Hour Holter monitor. Follow up with her PCP in 1 week. 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 Procedures Performed: none Results and Findings: Lab Pending Results 06/28/18 10:50: WBC 6.0, RBC 3.88 L, Hgb 12.3 L, Hct 35.6 L, MCV 91.8, MCH 31.7 H, MCHC 34.6, RDW 12.7, Plt Count 194, MPV 10.6, Immature Gran % (Auto) 0.20, Immature Gran # (Auto) 0.01, Neutrophils % 50.8, Lymphocytes % 39.0, Monocytes % 9.5 H, Eosinophils % 0.0, Basophils % 0.5, Nucleated RBC % 0.0, Neutrophils # 3.1, Lymphocytes # 2.35, Monocytes # 0.6, Eosinophils # 0.0, Absolute Basophils 0.0 06/28/18 10:50: PT 10.5, INR (Anticoag Therapy) 1.05, PTT ([place]) 25.1 06/28/18 10:50: Sodium 135, Plasma Sodium 135, Potassium 3.5, Chloride 100, Carbon Dioxide 24.8, Anion Gap 13.7, BUN 19 D, Creatinine 1.20, Est GFR (Non-Af Amer) 45 L D, BUN/Creatinine Ratio 15.8, Random Glucose 128 H, Calcium 9.8, Calcium Adj for Albumin 9.5, Total Bilirubin 0.6, AST 18, ALT 14 L, Alkaline Phosphatase 61, Troponin I Less than 0.017, Total Protein 7.0, Albumin 4.0 06/28/18 11:35: Urine Color Yellow, Urine Appearance Clear, Urine pH 7.0, Ur Specific [place] 1.020, Urine Protein Negative, Urine Glucose (UA) Negative, Urine Ketones 50, Urine Blood Negative, Urine Nitrate Negative, Urine Bilirubin Negative, Urine Urobilinogen Normal, Ur Leukocyte Esterase Negative, Urine RBC None seen, Urine WBC 0-5, Ur Epithelial Cells 0-5, Urine Bacteria None seen, Urine Culture Comments No culture indicated 06/28/18 16:34: Troponin I Less than 0.017 Discharge Location: Home Disposition: Home self-care Condition: Stable Discharge Activity: Activity as tolerated Discharge Diet: Low salt, Low fat/chol Referrals: Emely Sanz, [facility] [Primary Care Provider] - Additional Patient Instructions (free text): Follow up with her PCP in 1 week. Complete Home Medications List: Complete Home Medication List: Aspirin [Aspirin Chewable] 81 mg PO DAILY 04/02/16 Benazepril HCl 10 mg PO HS 04/02/16 Simvastatin [Zocor] 10 mg PO HS 04/02/16 Nitroglycerin 0.4 mg SL PRN PRN 07/20/17 Amlodipine Besylate 5 mg PO HS 11/02/17 Calcium Carb, Citrate/Vit D3 [Calcium + D3 ER Tablet] 1 each PO DAILY 11/02/17 Gabapentin 300 mg PO TID 06/28/18 traMADol HCL [Tramadol HCl] 50 mg PO PRN PRN 06/28/18 Amb Orders for Discharge: NUC Pharmacological Stress Time Frame: 1 Week, Location: Radiology Holter Monitor 48 Hour Time Frame: 1 Week, Location: Respiratory Therapy
[2018-06-29 13:12] VITALS: BP 145/48
[2018-06-29] MEDS ORDERED: SIMVASTATIN 10 MG TABLET PO SCH (21:00)
== END 2018-06-29 13:16 | disposition home or self-care (01) ==
LOC: ER 10:13 → MS 10:13
PROVIDERS: ADMIT Internal Medicine; ATTEND Internal Medicine
CPT/HCPCS: 36415; 71020; 71046; 80053; 81001; 84484; 85025; 85610; 85730; 90686; 93005; 96360; 99285; G0008; G0378

== ENCOUNTER 2019-04-29 20:50 | Observation (INO) ==
[2019-04-29] MEDS ORDERED: DILTIAZEM HCL 5 MG/ML VIAL IV ONE (21:05)
[2019-04-29] MEDS ORDERED: DILTIAZEM HCL 125 MG in DEXTROSE 5 % IN WATER 100 ML IV PRN ×2 (21:05)
--- NOTE | 2019-04-29 21:15 | ERNOTE ---
Chest Pain/Cardiac HPI Chief Complaint: Chest Pain Time Seen by Provider: 04/29/19 20:58 Source: patient, family Exam Limitations: no limitations Immunizations: IMMUNIZATION HX Immunizations Up to Date Yes History of Influenza Vaccine Yes Hx Pneumococcal Vaccination No Allergies/Adverse Reactions: Allergies lidocaine Allergy (Verified 10/07/18 08:08) Home Medications: HOME MEDICATIONS Aspirin [Aspirin Chewable] 81 mg PO DAILY 04/02/16 [Last Taken 04/29/19 09:00] Benazepril HCl 10 mg PO HS 04/02/16 [Last Taken 04/28/19 21:00] Simvastatin [Zocor] 20 mg PO HS 04/02/16 [Last Taken 04/28/19 21:00] Nitroglycerin 0.4 mg SL PRN PRN 07/20/17 [Last Taken 04/29/19 20:20] Amlodipine Besylate 5 mg PO HS 11/02/17 [Last Taken 04/28/19 21:00] Calcium Carb, Citrate/Vit D3 [Calcium + D3 ER Tablet] 1 each PO DAILY 11/02/17 [Last Taken 04/29/19 09:00] Gabapentin 600 mg PO TID 06/28/18 [Last Taken 04/29/19 15:00] Acetaminophen 325 mg PO TID 04/29/19 [Last Taken 04/29/19 15:00] Narrative: Patient had onset of chest pain approximately 1 hour prior to arrival. She had some palpitations. She states she is feeling generally weak. Timing: constant Severity/Quality: moderate, pressure Location: central Chest Pain Radiation: no radiation Activities at Onset: none Nitro Today/Relief: 0.4 mg x 2, no relief Aspirin Treatment Today: 81 mg x 1 Review of Systems - Review of Systems Constitutional: Absent: recent illness, fever, chills EYE: Absent: vision changes ENT: Absent: nose congestion, nasal drainage Respiratory: Present: shortness of breath Cardiology: Present: chest pain, palpitations Gastrointestinal/Abdominal: Absent: nausea, vomiting Genitourinary: Absent: pain, dysuria Musculoskeletal: Present: back pain Skin: Absent: rash Neurological: Absent: dizziness/light-headedness Endocrine: Absent: excessive sweating Medical History (Updated 04/29/19 @ 21:57 by Jeannine Solis RN) Hyperlipidemia Hypertension Surgical History: Surgical History (Updated 06/28/18 @ 13:20 by Carol Simpson RN) History of heart artery stent Family History: Family History (Updated 06/28/18 @ 13:21 by Carol Simpson RN) Mother Dementia Son Social History: (Last Reviewed 04/29/19 @ 21:19 by Brant Bergeron DO) Tobacco: Smoking Status: Never smoker Physical Exam - Physical Exam General Appearance: Present: wd/wn, alert, no apparent distress Head Exam: Present: normal inspection, no evidence of injury Ears, Nose, Throat: Present: normal ENT inspection Neck: Present: normal inspection, supple, full range of motion Respiratory: Present: no respiratory distress, no accessory muscle use, chest nontender, lungs clear Cardiovascular/Chest: Present: regular rate, rhythm, no murmur, normal peripheral pulses Gastrointestinal/Abdominal: Present: normal bowel sounds, nontender, nondistended, soft Extremity Exam: Present: normal inspection, normal range of motion, no edema - right, pedal edema - left foot Neurological Exam: Present: alert, oriented, normal mood/affect, no motor/sensory deficits Skin Exam: Present: normal color, warm/dry Lymphatic Exam: Present: no adenopathy Progress - Results and Orders Patient's Lab Results:: I have reviewed the patient's lab results. Results and Orders: Laboratory Tests 04/29/19 04/29/19 04/29/19 21:20 21:20 21:20 WBC 6.4 Hgb 12.2 L Hct 36.1 L Plt Count 157 PT 10.5 INR (Anticoag Therapy) 1.06 PTT ([place]) 27.1 Sodium 138 Potassium 3.8 Chloride 101 Carbon Dioxide 24.0 BUN 13 Creatinine 1.19 Est GFR (Non-Af Amer) 46 L D Random Glucose 225 H Calcium 9.2 Total Bilirubin 0.3 AST 20 ALT 12 L Troponin I Less than 0.017 - Vital Signs Patient's Vital Signs:: I have reviewed the patient's vital signs. Vital Signs: Vital Signs 04/29/19 20:55 04/29/19 21:01 Temperature 37.1 C Pulse Rate 135 H 123 H Respiratory Rate 15 Blood Pressure 149/59 O2 Sat by Pulse Oximetry 97 - EKG EKG #1 EKG: atrial fibrillation - With RVR ventricular rate 133, RBBB - Also seen on previous EKG, ST depression EKG read: Interp. by me - X-Ray X-Ray #1 X-Ray: chest Interpretation: Interp. by me X-ray Comments: No infiltrate or effusion, no pneumothorax. No acute cardiopulmonary changes - Progress/Reassessment Chief Complaint: Chest Pain Progress:: Improved Progress Note-Subjective: 04/29/19 21:20 Patient presented in A. fib with RVR. She was given 20 mg of Cardizem IV patient remains in A. fib with a heart rate between 87 and 95. Cardizem drip is being mixed 04/29/19 22:00 Patient went to the bathroom and had a BM. When she returned heart rate was in the upper 40s and lower 50s and appeared to be sinus rhythm. EKG was taken and rhythm was found to be sinus with heart rate of 59. I spoke with Dr. Vega she agrees with observation admit, oral Cardizem and telemetry Departure Clinical Impression: Atrial fibrillation with RVR - Departure Disposition: Still a patient Condition: Good
[2019-04-29 21:26] LABS: Hematocrit 36.1 % (37.0-47.0); Hemoglobin 12.2 gm/dL (12.5-16.0); Mean Cell Volume 95.8 fl (78-100); Mean Corpuscular Hemoglobin 32.4 pg (27-31); Mean Corpuscular Hgb Conc 33.8 g/dl (32-36); Mean Platelet Volume 10.2 fl (8-12.5); Neutrophil # 3.2 K/mm3 (1.3-6.0); Neutrophil % 50.4 % (42-75.0); Platelet Count 157 K/mm3 (150-450); Red Blood Count 3.77 M/mm3 (4.2-5.4); Red Cell Distribution Width 12.7 % (11.5-14.0); White Blood Count 6.4 K/mm3 (4.0-10.5)
[2019-04-29 21:37] LABS: Prothrombin Time (Patient) 10.5 Seconds (9.1-10.7)
[2019-04-29 21:38] LABS: INR 1.06 INR (0.92-1.08); Partial Thrombolplastin Time 27.1 Seconds (24-32)
[2019-04-29 21:44] LABS: ALT 12 U/L (19-67); AST 20 U/L (0-48); Albumin * 3.6 gm/dl (3.4-5.0); Alkaline Phosphatase * 69 U/L (50-170); Anion Gap 16.8 mmol/L (6.8-13.8); BUN/Creatinine Ratio 10.9 (9.0-21.6); Bilirubin, Total 0.3 mg/dL (0.0-1.1); Blood Urea Nitrogen 13 mg/dL (3-23); Ca. Corrected For Albumin 9.2 mg/dL (8.4-10.2); Calcium * 9.2 mg/dL (7.9-10.9); Chloride 101 mmol/L (97-106); Glucose * 225 mg/dL (70-110); Potassium 3.8 mmol/L (3.4-4.6); Sodium 138 mmol/L (132-142); Total Protein 6.7 gm/dL (6.2-8.2); Troponin I Less than 0.017 ng/mL (0.00-0.10)
[2019-04-29] MEDS ORDERED: DILTIAZEM HCL 120 MG CAP.SR.24H PO SCH (23:15)
[2019-04-30] MEDS ORDERED: NITROGLYCERIN 0.4 MG/TAB BTL SL PRN (09:23)
[2019-04-30] MEDS ORDERED: ASPIRIN 81 MG TAB.CHEW PO SCH (09:30)
[2019-04-30] MEDS ORDERED: GABAPENTIN 600 MG TABLET PO SCH (09:30)
[2019-04-30] MEDS ORDERED: CALCIUM CARBONATE/VITAMIN D3 1 TAB TABLET PO SCH (09:30)
[2019-04-30] MEDS ORDERED: ACETAMINOPHEN 325 MG TABLET PO SCH (09:30)
--- NOTE | 2019-04-30 09:45 | HPDIS ---
Chief Complaint - Chief Complaint Date of Service: 04/30/19 Time of Service: 09:24 Chief Complaint: chest pressure History of Present Illness: Patient with past medical history of previous cardiac stent, hypertension, neuropathy presented to the ER after feeling some chest pressure. She was found to be in atrial fibrillation with heart rate of 133, and converted after being given 20 mg IV Cardizem. She was then started on 120 mg extended release Cardizem. She denies chest pain, shortness of breath, lower extremity swelling. No alcohol or tobacco use. She did have problems with thyroid years ago. She feels like she is back to her baseline self this morning on my exam. Medical History (Updated 04/29/19 @ 23:12 by Brant Bergeron DO) Hyperlipidemia Hypertension Surgical History: Surgical History (Updated 06/28/18 @ 13:20 by Carol Simpson RN) History of heart artery stent Family History: Family History (Updated 06/28/18 @ 13:21 by Carol Simpson RN) Mother Dementia Son Social History: (Last Reviewed 04/29/19 @ 23:56 by Lazara Hilton RN) Tobacco: Smoking Status: Never smoker Review Of Systems (GEN) - Review of Systems Generalized/Overall Review: Absent: Fever Respiratory: Absent: Cough, Shortness of Breath Cardiac: Absent: Chest Pain, Edema Abdominal: Absent: Nausea Genitourinary: Present: No Symptoms Reported Musculoskeletal: Present: Back Pain Neurological: Present: No Symptoms Reported Skin: Present: No Symptoms Reported Immunizations: IMMUNIZATION HX Immunizations Up to Date Yes History of Influenza Vaccine Yes Hx Pneumococcal Vaccination No Allergies/Adverse Reactions: Allergies Allergy/AdvReac Type Severity Reaction Status Date / Time lidocaine Allergy Verified 10/07/18 08:08 Home Medications: HOME MEDICATIONS Aspirin [Aspirin Chewable] 81 mg PO DAILY 04/02/16 [Last Taken 04/29/19 09:00] Benazepril HCl 10 mg PO HS 04/02/16 [Last Taken 04/28/19 21:00] Simvastatin [Zocor] 20 mg PO HS 04/02/16 [Last Taken 04/28/19 21:00] Nitroglycerin 0.4 mg SL PRN PRN 07/20/17 [Last Taken 04/29/19 20:20] Amlodipine Besylate 5 mg PO HS 11/02/17 [Last Taken 04/28/19 21:00] Calcium Carb, Citrate/Vit D3 [Calcium + D3 ER Tablet] 1 each PO DAILY 11/02/17 [Last Taken 04/29/19 09:00] Gabapentin 600 mg PO TID 06/28/18 [Last Taken 04/29/19 15:00] Acetaminophen 325 mg PO TID 04/29/19 [Last Taken 04/29/19 15:00] Metoprolol Succinate 12.5 mg PO DAILY #30 tab.er.24h 04/30/19 [Last Taken Unknown] Exam - Exam Vital Signs: Vital Signs - Last Taken Temp 36.5 C 04/30/19 06:51 Pulse 47 L 04/30/19 06:51 Resp 18 04/30/19 06:51 BP 125/45 04/30/19 06:51 Pulse Ox 97 04/30/19 06:51 Constitutional: Present: Alert, Oriented x3, Cooperative, Well developed, Well nourished, No distress, Elderly Respiratory: Present: normal breath sounds, no respiratory distress Cardiovascular/Chest: Present: bradycardia Abdomen: Present: soft, nontender Extremity: Absent: lower extremity edema Neurologic: Present: normal mood/affect Diagnostic Studies: Abnormal Lab Results 04/29/19 04/29/19 Range/Units 21:20 21:20 RBC 3.77 L (4.2-5.4) M/mm3 Hgb 12.2 L (12.5-16.0) gm/dL Hct 36.1 L (37.0-47.0) % MCH 32.4 H (27-31) pg Monocytes % 10.5 H (0.0-9) % Anion Gap 16.8 H (6.8-13.8) mmol/L Est GFR (Non-Af Amer) 46 L D (60-130) mL/min Random Glucose 225 H (70-110) mg/dL ALT 12 L (19-67) U/L Laboratory Results WBC 6.4 K/mm3 (4.0-10.5) 04/29/19 21:20 RBC 3.77 M/mm3 (4.2-5.4) L 04/29/19 21:20 Hgb 12.2 gm/dL (12.5-16.0) L 04/29/19 21:20 Hct 36.1 % (37.0-47.0) L 04/29/19 21:20 MCV 95.8 fl (78-100) 04/29/19 21:20 MCH 32.4 pg (27-31) H 04/29/19 21:20 MCHC 33.8 g/dl (32-36) 04/29/19 21:20 RDW 12.7 % (11.5-14.0) 04/29/19 21:20 Plt Count 157 K/mm3 (150-450) 04/29/19 21:20 MPV 10.2 fl (8-12.5) 04/29/19 21:20 Immature Gran % (Auto) 0.20 % (0.001-0.429) 04/29/19 21: Immature Gran # (Auto) 0.01 K/mm3 (0.000-0.0310) 04/29/19 21:20 50.4 % (42-75.0) 04/29/19 21:20 38.4 % (20-51) 04/29/19 21:20 10.5 % (0.0-9) H 04/29/19 21:20 0.0 % (0.0-3.0) 04/29/19 21:20 0.5 % (0.0-1.0) 04/29/19 21: Nucleated RBC % 0.0 k/mm3 (0-1) 04/29/19 21:20 3.2 K/mm3 (1.3-6.0) 04/29/19 21:20 2.44 k/mm3 (1.5-3.5) 04/29/19 21:20 0.7 k/mm3 (0.0-1.0) 04/29/19 21:20 0.0 k/mm3 (0.0-0.7) 04/29/19 21: Absolute Basophils 0.0 k/mm3 (0.0-0.1) 04/29/19 21:20 PT 10.5 Seconds (9.1-10.7) 04/29/19 21:20 INR (Anticoag Therapy) 1.06 INR (0.92-1.08) 04/29/19 21:20 PTT (Park) 27.1 Seconds (24-32) 04/29/19 21:20 Sodium 138 mmol/L (132-142) 04/29/19 21:20 140 mmol/L (130-142) 04/29/19 21:20 Potassium 3.8 mmol/L (3.4-4.6) 04/29/19 21:20 Chloride 101 mmol/L (97-106) 04/29/19 21:20 Carbon Dioxide 24.0 mmol/L (24-32.6) 04/29/19 21:20 16.8 mmol/L (6.8-13.8) H 04/29/19 21:20 BUN 13 mg/dL (3-23) 04/29/19 21:20 1.19 mg/dL (0.4-1.4) 04/29/19 21:20 Est GFR (Non-Af Amer) 46 mL/min (60-130) L D 04/29/19 21:20 10.9 (9.0-21.6) 04/29/19 21:20 225 mg/dL (70-110) H 04/29/19 21:20 Calcium 9.2 mg/dL (7.9-10.9) 04/29/19 21:20 Calcium Adj for Albumin 9.2 mg/dL (8.4-10.2) 04/29/19 21:20 0.3 mg/dL (0.0-1.1) 04/29/19 21:20 AST 20 U/L (0-48) 04/29/19 21:20 ALT 12 U/L (19-67) L 04/29/19 21:20 69 U/L (50-170) 04/29/19 21:20 Less than 0.017 ng/mL (0.00-0.10) 04/29/19 21:20 6.7 gm/dL (6.2-8.2) 04/29/19 21:20 3.6 gm/dl (3.4-5.0) 04/29/19 21:20 Assessment/Plan - Assessment/Plan (1) Atrial fibrillation with RVR Assessment: Patient converted to sinus rhythm after 20 mg IV Cardizem. She was started on 120 mg extended release Cardizem, and her heart rate is in the 50s this morning. She is anxious to go home, and will discharge with 12.5 mg metoprolol and have her see her primary care physician next week. Discussed anticoagulation, and she would like to also discuss this with her PCP. Her HAS-BLED score is 2 for age and aspirin use, making her at moderate risk for major bleed. Her [id number] score is 4 (HTN, age>75, & female), which is moderate-high risk. Also recommend checking TSH. She'd like to see if her PCP will manage her afib, and is less interested in seeing a child welfare counselor. Problem: Resolved (2) History of coronary artery disease Assessment: Pt reports previous stent placement, and was established with Dr. Barker. Problem: Chronic (3) Hypertension Problem: Chronic Qualifiers: Hypertension type: essential hypertension Qualified Code(s): I10 - Essential (primary) hypertension (4) Hyperlipidemia Problem: Chronic Qualifiers: Hyperlipidemia type: mixed hyperlipidemia Qualified Code(s): E78.2 - Mixed hyperlipidemia (5) Elevated glucose Assessment: Glucose of 225. Unsure of her baseline, but may be reactive. A1C at follow up visit may be helpful. Problem: Acute (1) Atrial fibrillation with RVR Problem: Resolved (2) History of coronary artery disease Problem: Chronic (3) Hypertension Problem: Chronic Qualifiers: Hypertension type: essential hypertension Qualified Code(s): I10 - Essential (primary) hypertension (4) Hyperlipidemia Problem: Chronic Qualifiers: Hyperlipidemia type: mixed hyperlipidemia Qualified Code(s): E78.2 - Mixed hyperlipidemia (5) Elevated glucose Problem: Acute Description of Stay: see above Procedures Performed: none Results and Findings: Lab Pending Results 04/29/19 21:20: WBC 6.4, RBC 3.77 L, Hgb 12.2 L, Hct 36.1 L, MCV 95.8, MCH 32.4 H, MCHC 33.8, RDW 12.7, Plt Count 157, MPV 10.2, Immature Gran % (Auto) 0.20, Immature Gran # (Auto) 0.01, Neutrophils % 50.4, Lymphocytes % 38.4, Monocytes % 10.5 H, Eosinophils % 0.0, Basophils % 0.5, Nucleated RBC % 0.0, Neutrophils # 3.2, Lymphocytes # 2.44, Monocytes # 0.7, Eosinophils # 0.0, Absolute Basophils 0.0 04/29/19 21:20: PT 10.5, INR (Anticoag Therapy) 1.06, PTT (Dari) 27.1 04/29/19 21:20: Sodium 138, Plasma Sodium 140, Potassium 3.8, Chloride 101, Carbon Dioxide 24.0, Anion Gap 16.8 H, BUN 13, Creatinine 1.19, Est GFR (Non-Af Amer) 46 L D, BUN/Creatinine Ratio 10.9, Random Glucose 225 H, Calcium 9.2, Calcium Adj for Albumin 9.2, Total Bilirubin 0.3, AST 20, ALT 12 L, Alkaline Phosphatase 69, Troponin I Less than 0.017, Total Protein 6.7, Albumin 3.6 Discharge Location: Home Disposition: Home self-care Condition: Good Discharge Activity: Activity as tolerated Discharge Diet: General/regular food Referrals: Emely Sanz CNP [Primary Care Provider] - One Week Prescriptions (Any new or edited meds): Metoprolol Succinate 12.5 mg PO DAILY #30 tab.er.24h Complete Home Medications List: Complete Home Medication List: Aspirin [Aspirin Chewable] 81 mg PO DAILY 04/02/16 Benazepril HCl 10 mg PO HS 04/02/16 Simvastatin [Zocor] 20 mg PO HS 04/02/16 Nitroglycerin 0.4 mg SL PRN PRN 07/20/17 Amlodipine Besylate 5 mg PO HS 11/02/17 Calcium Carb, Citrate/Vit D3 [Calcium + D3 ER Tablet] 1 each PO DAILY 11/02/17 Gabapentin 600 mg PO TID 06/28/18 Acetaminophen 325 mg PO TID 04/29/19 Metoprolol Succinate 12.5 mg PO DAILY #30 tab.er.24h 04/30/19
[2019-04-30 10:35] VITALS: BP 154/47
[2019-04-30] MEDS ORDERED: amLODIPine BESYLATE 5 MG TABLET PO SCH (21:00)
[2019-04-30] MEDS ORDERED: ENALAPRIL MALEATE 5 MG TABLET PO SCH (21:00)
[2019-04-30] MEDS ORDERED: SIMVASTATIN 20 MG TABLET PO SCH (21:00)
== END 2019-04-30 10:36 | disposition home or self-care (01) ==
LOC: MS 20:50 → ER 20:50 → MS 23:16
PROVIDERS: ADMIT Family Medicine; ATTEND Family Medicine
DX: R07.9 Chest pain, unspecified; E78.2 Mixed hyperlipidemia; R73.01 Impaired fasting glucose; I10 Essential (primary) hypertension; I48.91 Unspecified atrial fibrillation
CPT/HCPCS: 36415; 71020; 71046; 80053; 84484; 85025; 85610; 85730; 93005; 96374; 99284; G0378

== ENCOUNTER 2019-06-29 13:42 | Observation (INO) ==
[2019-06-29 14:26] LABS: Hematocrit 35.6 % (37.0-47.0); Mean Cell Volume 97.3 fl (78-100); Mean Corpuscular Hemoglobin 32.8 pg (27-31); Mean Corpuscular Hgb Conc 33.7 g/dl (32-36); Mean Platelet Volume 10.3 fl (8-12.5); Neutrophil # 3.6 K/mm3 (1.3-6.0); Neutrophil % 60.7 % (42-75.0); Platelet Count 163 K/mm3 (150-450); Red Blood Count 3.66 M/mm3 (4.2-5.4); White Blood Count 5.9 K/mm3 (4.0-10.5)
[2019-06-29 14:43] LABS: ALT 10 U/L (19-67); AST 15 U/L (0-48); Albumin * 3.4 gm/dl (3.4-5.0); Alkaline Phosphatase * 62 U/L (50-170); Anion Gap 10.1 mmol/L (6.8-13.8); BUN/Creatinine Ratio 11.5 (9.0-21.6); Bilirubin, Total 0.3 mg/dL (0.0-1.1); Blood Urea Nitrogen 13 mg/dL (3-23); Ca. Corrected For Albumin 9.3 mg/dL (8.4-10.2); Calcium * 9.1 mg/dL (7.9-10.9); Carbon Dioxide 27.7 mmol/L (24-32.6); Chloride 104 mmol/L (97-106); Glucose * 198 mg/dL (70-110); Potassium 3.8 mmol/L (3.4-4.6); Sodium 138 mmol/L (132-142); Total Protein 6.4 gm/dL (6.2-8.2); Troponin I Less than 0.017 ng/mL (0.00-0.10)
[2019-06-29 15:10] LABS: Urine Appearance Clear (CLEAR); Urine Bacteria TRACE; Urine Bilirubin Negative (NEGATIVE); Urine Blood 25 /ul (NEGATIVE); Urine Color Pale Yellow; Urine Ketone Negative (NEGATIVE); Urine Nitrite Negative (NEGATIVE); Urine Protein Negative (NEGATIVE); Urine RBC 0-5 /hpf (0-5); Urine Urobilinogen Normal (NORMAL); Urine WBC 0-5 /hpf (0-5); Urine pH 6.5 pH (5.0-7.0)
--- NOTE | 2019-06-29 16:00 | ERNOTE ---
Chest Pain/Cardiac HPI Date of Service: 06/29/19 Chief Complaint: Chest Pain Time Seen by Provider: 06/29/19 14:07 Source: patient, RN notes reviewed Exam Limitations: no limitations Immunizations: IMMUNIZATION HX Immunizations Up to Date Yes History of Influenza Vaccine No Hx Pneumococcal Vaccination Yes Allergies/Adverse Reactions: Allergies lidocaine Allergy (Verified 10/07/18 08:08) Home Medications: HOME MEDICATIONS Aspirin [Aspirin Chewable] 81 mg PO DAILY 04/02/16 [Last Taken 04/29/19 09:00] Benazepril HCl 10 mg PO HS 04/02/16 [Last Taken 04/28/19 21:00] Simvastatin [Zocor] 20 mg PO HS 04/02/16 [Last Taken 04/28/19 21:00] Nitroglycerin 0.4 mg SL PRN PRN 07/20/17 [Last Taken 04/29/19 20:20] Amlodipine Besylate 5 mg PO HS 11/02/17 [Last Taken 04/28/19 21:00] Calcium Carb, Citrate/Vit D3 [Calcium + D3 ER Tablet] 1 each PO DAILY 11/02/17 [Last Taken 04/29/19 09:00] Gabapentin 600 mg PO TID 06/28/18 [Last Taken 04/29/19 15:00] Acetaminophen 325 mg PO TID 04/29/19 [Last Taken 04/29/19 15:00] Metoprolol Succinate 12.5 mg PO DAILY #30 tab.er.24h 04/30/19 [Last Taken Unknown] Narrative: Heavenly is a 83 year old female brought to the ED by ambulance for chest pain. She took 3 nitro at home and the pain subsided, but she reports that she still does not feel right. She states that she felt fine when she got up today. She has a history and CAD and stents. She was being followed by Dr. Barker until he was no longer seeing patients here. She currently denies pain. Date (Duration): 06/29/19 Time (Timing): 10:00 - approximate Timing: resolved prior to arrival Severity/Quality: severe, dull Location: substernal Chest Pain Radiation: no radiation Activities at Onset: none Modifying Factors - Improves: Present: nitroglycerin Modifying Factors - Worsens: Present: nothing Nitro Today/Relief: 0.4 mg x 3, complete relief Aspirin Treatment Today: 81 mg x 4, provided by EMS Associated Symptoms: Absent: cough, shortness of breath, fever/chills, nausea, vomiting, abdominal pain Prior Chest Pain/Cardiac Workup: Reports: prior chest pain Prior Treatment: Denies: recently seen Review of Systems - Review of Systems Constitutional: Present: malaise. Absent: recent illness, fever, chills EYE: Absent: eye pain, vision changes ENT: Absent: ear pain, nose congestion, sore throat Respiratory: Absent: shortness of breath, cough Cardiology: Absent: palpitations, syncope, edema Gastrointestinal/Abdominal: Absent: nausea, vomiting, abdominal pain Genitourinary: Absent: frequency, dysuria, hematuria Musculoskeletal: Absent: muscle pain, joint pain Skin: Absent: rash, lesions Neurological: Absent: headache, dizziness/light-headedness Endocrine: Present: no symptoms reported Hematologic/Lymphatic: Absent: easy bruising, easy bleeding Psych: Present: no symptoms reported Medical History (Updated 04/30/19 @ 09:45 by Phuong Vega DO) Hyperlipidemia Hypertension Surgical History: Surgical History (Updated 04/30/19 @ 09:45 by Phuong Vega DO) History of heart artery stent Family History: Family History (Updated 06/28/18 @ 13:21 by Carol Simpson RN) Mother Dementia Son Social History: (Last Reviewed 06/29/19 @ 15:55 by Lupe Hooks NP) Tobacco: Smoking Status: Never smoker Physical Exam - Physical Exam General Appearance: Present: wd/wn, alert, no apparent distress, other - Pleasant, talkative Head Exam: Present: normal inspection Eye Exam: Normal inspection: bilateral Neck: Present: normal inspection, nontender, supple, full range of motion Respiratory: Present: no respiratory distress, normal breath sounds, no accessory muscle use, lungs clear Cardiovascular/Chest: Present: no murmur, normal peripheral pulses, bradycardia Gastrointestinal/Abdominal: Present: nontender, nondistended, soft Extremity Exam: Present: normal inspection, no edema Neurological Exam: Present: alert, oriented, normal mood/affect, no motor/sensory deficits Skin Exam: Present: normal color, warm/dry Progress - Results and Orders Patient's Lab Results:: I have reviewed the patient's lab results. - Vital Signs Patient's Vital Signs:: I have reviewed the patient's vital signs. Vital Signs: Vital Signs 06/29/19 13:44 06/29/19 14:28 06/29/19 15:23 Temperature 36.2 C Pulse Rate 61 69 54 L Respiratory Rate 13 21 H 11 L Blood Pressure 135/58 128/59 O2 Sat by Pulse Oximetry 100 97 97 - EKG EKG #1 EKG: NSR, RBBB EKG read: Reviewed by me - X-Ray X-Ray #1 X-Ray: chest Interpretation: Reviewed by me X-ray Comments: No acute cardiopulmonary process - Progress/Reassessment Chief Complaint: Chest Pain Progress:: Improved Plan - Plan Plan: Chest pain did not return during stay in ED. EKG is unremarkable and initial troponin is normal. UA shows a possible infection, but since the patient is not symptomatic will defer treatment pending culture results. Dr. Barrow was contacted and the patient will be admitted to observation status. Departure Clinical Impression: Chest pain, rule out acute myocardial infarction - Departure Disposition: Still a patient Condition: Stable Referrals: Emely Sanz, TECHNOLOGY INTEGRATION SPECIALIST [Primary Care Provider] -
[2019-06-29] MEDS ORDERED: FLU VACC QS2019-20(6MOS UP)/PF 60 MCG/0.5 ML SYRINGE IM ONE (18:00)
[2019-06-29] MEDS ORDERED: DOCUSATE SODIUM 100 MG CAPSULE PO PRN (19:02)
[2019-06-29] MEDS ORDERED: NITROGLYCERIN 0.4 MG/TAB BTL SL PRN (19:02)
[2019-06-29] MEDS ORDERED: oxyCODONE HCL/ACETAMINOPHEN 1 TAB TABLET PO PRN (19:02)
--- NOTE | 2019-06-29 19:15 | HP ---
Chief Complaint - Chief Complaint Date of Service: 06/29/19 Time of Service: 19:06 Chief Complaint: Chest pain at rest History of Present Illness: Heavenly Norris is an 83-year-old female who had been at her residence in her usual state of health when she developed some substernal chest discomfort. He took 2 nitroglycerin 5 minutes apart and when the chest discomfort was not relieved she took a third and notified staff. She was brought to the hospital per EMS and on arrival was still having some chest discomfort. She denies radiation, nausea, or diaphoresis. She admits to being lightheaded and a bit short of breath with the chest discomfort. She otherwise is in no distress on admission. She has had no more chest discomfort since being in the emergency room. Medical History (Updated 06/29/19 @ 16:00 by Lupe Hooks NP) Hyperlipidemia Hypertension Surgical History: Surgical History (Updated 04/30/19 @ 09:45 by Phuong Vega DO) History of heart artery stent Family History: Family History (Updated 06/28/18 @ 13:21 by Carol Simpson RN) Mother Dementia Son Social History: (Last Reviewed 06/29/19 @ 15:55 by Lupe Hooks NP) Tobacco: Smoking Status: Never smoker Review Of Systems (GEN) - Review of Systems Generalized/Overall Review: Present: No Symptoms Reported, Weakness EENTM: Present: No Symptoms Reported Cardiac: Present: Chest Pain Abdominal: Present: No Symptoms Reported Genitourinary: Present: No Symptoms Reported Musculoskeletal: Present: No Symptoms Reported Neurological: Present: No Symptoms Reported Skin: Present: No Symptoms Reported Endocrine: Present: No Symptoms Reported Immunizations: IMMUNIZATION HX Immunizations Up to Date Yes History of Influenza Vaccine No Hx Pneumococcal Vaccination Yes Allergies/Adverse Reactions: Allergies Allergy/AdvReac Type Severity Reaction Status Date / Time lidocaine Allergy Verified 10/07/18 08:08 Home Medications: HOME MEDICATIONS Simvastatin [Zocor] 20 mg PO HS 04/02/16 [Last Taken 04/28/19 21:00] Nitroglycerin 0.4 mg SL Q5MIN PRN 07/20/17 [Last Taken 04/29/19 20:20] Gabapentin 600 mg PO 0900,1500,2100 06/28/18 [Last Taken 04/29/19 15:00] Acetaminophen 325 mg PO 0900,1500,2100 04/29/19 [Last Taken 04/29/19 15:00] Metoprolol Succinate 12.5 mg PO DAILY #30 tab.er.24h 04/30/19 [Last Taken Unknown] Aspirin [Aspirin EC] 81 mg PO DAILY 06/29/19 [Last Taken Unknown] Benazepril HCl 10 mg PO HS 06/29/19 [Last Taken Unknown] Benazepril HCl 10 mg PO HS 06/29/19 [Last Taken Unknown] Calcium Carb/Vit D3/Minerals [Calcium 600+D Plus Minerals Tb] 1 ea PO DAILY 06/29/19 [Last Taken Unknown] Docusate Sodium [Colace] 200 mg PO BID PRN 06/29/19 [Last Taken Unknown] amLODIPine BESYLATE [Norvasc] 5 mg PO HS 06/29/19 [Last Taken Unknown] oxyCODONE HCL/ACETAMINOPHEN [Percocet 5 MG/325 MG] 1 tab PO Q6H PRN 06/29/19 [Last Taken Unknown] Exam - Exam Vital Signs: Vital Signs - Last Taken Temp 36.6 C 06/29/19 16:41 Pulse 53 L 06/29/19 16:45 Resp 16 06/29/19 16:41 BP 137/56 06/29/19 16:41 Pulse Ox 100 06/29/19 16:41 Constitutional: Present: Alert, Oriented x3, Cooperative, Well developed, Well nourished, No distress Eye Exam: bilateral eye: normal inspection, PERRL, EOMI Neck: Present: non-tender, full range of motion, supple, normal inspection, trachea midline Back Exam: Present: normal inspection, no CVA tenderness, no vertebral tende rness Breasts: Present: Exam deferred Respiratory: Present: chest non-tender, lungs clear, normal breath sounds, no respiratory distress, no accessory muscle use Cardiovascular/Chest: Present: normal peripheral pulses, regular rate, rhythm, no chest tenderness, no edema, no gallop, no JVD, no murmur, no rub Peripheral Pulses: carotid (R): 2+, carotid (L): 2+, radial (R): 2+, radial (L): 2+ Abdomen: Present: Normal bowel sounds, soft, nontender, nondistended, no rebound tenderness, no hepatospenomegaly, no masses /Rectal: Present: Exam deferred Extremity: Present: normal range of motion, non-tender, normal inspection, no pedal edema, no calf tenderness, normal capillary refill, lower extremity edema, other - Perhaps slight edema and duskiness of the left lower extremity. Homans is negative and there is no palpable clot in the calf area or in the medial distal thigh.. Absent: calf tenderness Skin Exam: Present: normal color, warm/dry, no cyanosis, cool/dry Lymphatic: Present: no adenopathy Neurologic: Present: analytics analyst II-XII nml as tested, normal cerebellar test, no motor/sensory deficits, alert, normal mood/affect, oriented x 3 Appearance: Present: appropriate appearance, appropriate insight, neat, no memory impairment Eye contact: Present: cooperative, good eye contact, normal speech Thoughts: Present: normal thought pattern, no apparent hallucination Diagnostic Studies: Abnormal Lab Results 06/29/19 06/29/19 06/29/19 Range/Units 14:20 14:20 14:49 RBC 3.66 L (4.2-5.4) M/mm3 Hgb 12.0 L (12.5-16.0) gm/dL Hct 35.6 L (37.0-47.0) % MCH 32.8 H (27-31) pg Est GFR (Non-Af Amer) 49 L (60-130) mL/min Random Glucose 198 H (70-110) mg/dL ALT 10 L (19-67) U/L Urine Glucose (UA) >=1000 H (NEGATIVE) mg/dL Urine Blood 25 H (NEGATIVE) /ul Ur Leukocyte Esterase 25 H (NEGATIVE) /ul Ur Epithelial Cells 5-10 H (0-5) /hpf Laboratory Results WBC 5.9 K/mm3 (4.0-10.5) 06/29/19 14:20 RBC 3.66 M/mm3 (4.2-5.4) L 06/29/19 14:20 Hgb 12.0 gm/dL (12.5-16.0) L 06/29/19 14:20 Hct 35.6 % (37.0-47.0) L 06/29/19 14:20 MCV 97.3 fl (78-100) 06/29/19 14:20 MCH 32.8 pg (27-31) H 06/29/19 14:20 MCHC 33.7 g/dl (32-36) 06/29/19 14:20 RDW 13.0 % (11.5-14.0) 06/29/19 14:20 Plt Count 163 K/mm3 (150-450) 06/29/19 14:20 MPV 10.3 fl (8-12.5) 06/29/19 14:20 Immature Gran % (Auto) 0.30 % (0.001-0.429) 06/29/19 14:20 Immature Gran # (Auto) 0.02 K/mm3 (0.000-0.0310) 06/29/19 14:20 60.7 % (42-75.0) 06/29/19 14:20 30.0 % (20-51) 06/29/19 14:20 8.7 % (0.0-9) 06/29/19 14:20 0.0 % (0.0-3.0) 06/29/19 14:20 0.3 % (0.0-1.0) 06/29/19 14:20 Nucleated RBC % 0.0 k/mm3 (0-1) 06/29/19 14:20 3.6 K/mm3 (1.3-6.0) 06/29/19 14:20 1.76 k/mm3 (1.5-3.5) 06/29/19 14:20 0.5 k/mm3 (0.0-1.0) 06/29/19 14:20 0.0 k/mm3 (0.0-0.7) 06/29/19 14:20 Absolute Basophils 0.0 k/mm3 (0.0-0.1) 06/29/19 14:20 Sodium 138 mmol/L (132-142) 06/29/19 14:20 140 mmol/L (130-142) 06/29/19 14:20 Potassium 3.8 mmol/L (3.4-4.6) 06/29/19 14:20 Chloride 104 mmol/L (97-106) 06/29/19 14:20 Carbon Dioxide 27.7 mmol/L (24-32.6) 06/29/19 14:20 10.1 mmol/L (6.8-13.8) 06/29/19 14:20 BUN 13 mg/dL (3-23) 06/29/19 14:20 1.13 mg/dL (0.4-1.4) 06/29/19 14:20 Est GFR (Non-Af Amer) 49 mL/min (60-130) L 06/29/19 14:20 11.5 (9.0-21.6) 06/29/19 14:20 198 mg/dL (70-110) H 06/29/19 14:20 Calcium 9.1 mg/dL (7.9-10.9) 06/29/19 14:20 Calcium Adj for Albumin 9.3 mg/dL (8.4-10.2) 06/29/19 14:20 0.3 mg/dL (0.0-1.1) 06/29/19 14:20 AST 15 U/L (0-48) 06/29/19 14:20 ALT 10 U/L (19-67) L 06/29/19 14:20 62 U/L (50-170) 06/29/19 14:20 Less than 0.017 ng/mL (0.00-0.10) 06/29/19 14:20 6.4 gm/dL (6.2-8.2) 06/29/19 14:20 3.4 gm/dl (3.4-5.0) 06/29/19 14:20 Pale yellow 06/29/19 14:49 Clear (CLEAR) 06/29/19 14:49 6.5 pH (5.0-7.0) 06/29/19 14:49 Ur Specific [place] 1.010 SP.GR. (1.005-1.010) 06/29/19 14:49 Negative mg/dL (NEGATIVE) 06/29/19 14:49 >=1000 mg/dL (NEGATIVE) H 06/29/19 14:49 Negative mg/dL (NEGATIVE) 06/29/19 14:49 25 /ul (NEGATIVE) H 06/29/19 14:49 Negative (NEGATIVE) 06/29/19 14:49 Negative mg/dl (NEGATIVE) 06/29/19 14:49 Normal EU/dl (NORMAL) 06/29/19 14:49 Ur Leukocyte Esterase 25 /ul (NEGATIVE) H 06/29/19 14:49 0-5 /hpf (0-5) 06/29/19 14:49 0-5 /hpf (0-5) 06/29/19 14:49 Ur Epithelial Cells 5-10 /hpf (0-5) H 06/29/19 14:49 Trace (NONE) 06/29/19 14:49 Culture to follow 06/29/19 14:49 Assessment/Plan - Narrative Narrative: 1. Continuous cardiac monitoring 2. Up ad chau. 3. Serial troponins 4. Repeat EKG tomorrow morning 5. Repeat morning lab CBC, CMP. - Assessment/Plan (1) Chest pain, rule out acute myocardial infarction Problem: Acute (2) Atrial fibrillation with RVR Problem: Resolved (3) Hypertension Problem: Chronic Qualifiers: Hypertension type: essential hypertension Qualified Code(s): I10 - E ssential (primary) hypertension (4) Angina pectoris Problem: Acute
[2019-06-29] MEDS ORDERED: ACETAMINOPHEN 325 MG TABLET ONE (19:29)
[2019-06-29] MEDS: ACETAMINOPHEN 325 MG TABLET PO SCH ×2 (19:32→20:53)
[2019-06-29] MEDS ORDERED: amLODIPine BESYLATE 5 MG TABLET PO SCH (21:00)
[2019-06-29] MEDS ORDERED: ENALAPRIL MALEATE 5 MG TABLET PO SCH (21:00)
[2019-06-29] MEDS ORDERED: GABAPENTIN 300 MG CAPSULE PO SCH (21:00)
[2019-06-29] MEDS ORDERED: SIMVASTATIN 40 MG TABLET PO SCH (21:00)
[2019-06-30] MEDS: ACETAMINOPHEN 325 MG TABLET PO SCH (08:25)
[2019-06-30] MEDS ORDERED: METOPROLOL SUCCINATE 25 MG TABLET.SA PO SCH (09:00)
[2019-06-30] MEDS ORDERED: CALCIUM CARBONATE/VITAMIN D3 1 TAB TABLET PO SCH (09:00)
[2019-06-30] MEDS ORDERED: GABAPENTIN 600 MG TABLET PO SCH (09:00)
[2019-06-30] MEDS ORDERED: ASPIRIN 81 MG TABLET.DR PO SCH (09:00)
--- NOTE | 2019-06-30 12:52 | DS ---
(1) Chest pain, rule out acute myocardial infarction Problem: Acute (2) Hypertension Problem: Chronic Qualifiers: Hypertension type: essential hypertension Qualified Code(s): I10 - Essential (primary) hypertension (3) Angina pectoris Problem: Acute Date of Discharge:: 06/30/19 Description of Stay: Heavenly Norris is a 83-year-old female admitted with diagnosis of chest pain rule out PA. Serial EKGs and troponins have been normal. She seems to be quite sensitive to beta-blockers as 12-1/2 mg of metoprolol dropped her into the mid 40s while sleeping. She was walked down the halls and heart rate came up to about 70 but when resting it dropped back to the mid to low 50s. Blood pressure is been normal. She has had no cardiac dysrhythmias. Procedures Performed: none Results and Findings: Pending Mircobiology Results 06/29/19 14:49 Urine,Voided Urine Culture - Preliminary No Growth Lab Pending Results 06/29/19 14:20: WBC 5.9, RBC 3.66 L, Hgb 12.0 L, Hct 35.6 L, MCV 97.3, MCH 32.8 H, MCHC 33.7, RDW 13.0, Plt Count 163, MPV 10.3, Immature Gran % (Auto) 0.30, Immature Gran # (Auto) 0.02, Neutrophils % 60.7, Lymphocytes % 30.0, Monocytes % 8.7, Eosinophils % 0.0, Basophils % 0.3, Nucleated RBC % 0.0, Neutrophils # 3.6, Lymphocytes # 1.76, Monocytes # 0.5, Eosinophils # 0.0, Absolute Basophils 0.0 06/29/19 14:20: Sodium 138, Plasma Sodium 140, Potassium 3.8, Chloride 104, Carbon Dioxide 27.7, Anion Gap 10.1, BUN 13, Creatinine 1.13, Est GFR (Non-Af Amer) 49 L, BUN/Creatinine Ratio 11.5, Random Glucose 198 H, Calcium 9.1, Calcium Adj for Albumin 9.3, Total Bilirubin 0.3, AST 15, ALT 10 L, Alkaline Phosphatase 62, Troponin I Less than 0.017, Total Protein 6.4, Albumin 3.4 06/29/19 14:49: Urine Color Pale yellow, Urine Appearance Clear, Urine pH 6.5, Ur Specific [place] 1.010, Urine Protein Negative, Urine Glucose (UA) >=1000 H, Urine Ketones Negative, Urine Blood 25 H, Urine Nitrate Negative, Urine Bilirubin Negative, Urine Urobilinogen Normal, Ur Leukocyte Esterase 25 H, Urine RBC 0-5, Urine WBC 0-5, Ur Epithelial Cells 5-10 H, Urine Bacteria Trace, Urine Culture Comments Culture to follow 06/29/19 20:20: Troponin I Less than 0.017 Discharge Location: Home Disposition: Home self-care Condition: Stable Discharge Activity: Activity as tolerated Discharge Diet: General/regular food Referrals: Emely Sanz, [employer] [Primary Care Provider] - Problem Oriented Discharge Instructions to Patient/Family: Chest Wall Pain, [id number] Additional Patient Instructions (free text): Follow-up with Emely Sanz within the next 2 weeks on 07-14-19 at 10:20. this is an appointment change do not go to your appointment that was scheduled with them tomorrow. Return to ER if any recurring chest discomfort. Make appointment with Dr Carlin at [facility] in [address] , on 07-09-19 at 9:15 am. for bradycardia and chest pain Complete Home Medications List: Complete Home Medication List: Simvastatin [Zocor] 20 mg PO HS 04/02/16 Nitroglycerin 0.4 mg SL Q5MIN PRN 07/20/17 Gabapentin 600 mg PO 0900,1500,2100 06/28/18 Acetaminophen 325 mg PO 0900,1500,2100 04/29/19 Aspirin [Aspirin EC] 81 mg PO DAILY 06/29/19 Benazepril HCl 10 mg PO HS 06/29/19 Benazepril HCl 10 mg PO HS 06/29/19 Calcium Carb/Vit D3/Minerals [Calcium 600+D Plus Minerals Tb] 1 ea PO DAILY 06/29/19 Docusate Sodium [Colace] 200 mg PO BID PRN 06/29/19 amLODIPine BESYLATE [Norvasc] 5 mg PO HS 06/29/19 oxyCODONE HCL/ACETAMINOPHEN [Percocet 5 MG/325 MG] 1 tab PO Q6H PRN 06/29/19
[2019-06-30 14:35] VITALS: BP 113/45
[2019-06-30] MEDS ORDERED: SIMVASTATIN 20 MG TABLET PO SCH (21:00)
== END 2019-06-30 14:57 | disposition home or self-care (01) ==
LOC: MS 13:42 → ER 13:42 → MS 16:33
PROVIDERS: ADMIT Family Medicine; ATTEND Family Medicine
CPT/HCPCS: 36415; 71020; 71046; 80053; 81001; 84484; 85025; 87077; 87086; 87186; 90686; 93005; 99285; G0008; G0378

== ENCOUNTER 2019-12-25 16:14 | Observation (INO) ==
[2019-12-25 16:50] LABS: Hematocrit 36.1 % (37.0-47.0); Hemoglobin 12.2 gm/dL (12.5-16.0); Mean Cell Volume 97.8 fl (78-100); Mean Corpuscular Hemoglobin 33.1 pg (27-31); Mean Corpuscular Hgb Conc 33.8 g/dl (32-36); Mean Platelet Volume 10.5 fl (8-12.5); Neutrophil # 3.6 K/mm3 (1.3-6.0); Neutrophil % 58.4 % (42-75.0); Platelet Count 174 K/mm3 (150-450); Red Blood Count 3.69 M/mm3 (4.2-5.4); Red Cell Distribution Width 12.9 % (11.5-14.0); White Blood Count 6.2 K/mm3 (4.0-10.5)
--- NOTE | 2019-12-25 16:59 | ERNOTE ---
Syncope ER HPI Stated Complaint: fall headache Time Seen by Provider: 12/25/19 16:16 Source: patient Exam Limitations: no limitations Immunizations: IMMUNIZATION HX Immunizations Up to Date Yes History of Influenza Vaccine Yes Hx Pneumococcal Vaccination Yes Allergies/Adverse Reactions: Allergies lidocaine Allergy (Verified 12/25/19 16:30) Home Medications: HOME MEDICATIONS Simvastatin [Zocor] 20 mg PO HS 04/02/16 [Last Taken 04/28/19 21:00] Nitroglycerin 0.4 mg SL Q5MIN PRN 07/20/17 [Last Taken 04/29/19 20:20] Gabapentin 600 mg PO 0900,1500,2100 06/28/18 [Last Taken 04/29/19 15:00] Acetaminophen 325 mg PO 0900,1500,2100 04/29/19 [Last Taken 04/29/19 15:00] Aspirin [Aspirin EC] 81 mg PO DAILY 06/29/19 [Last Taken Unknown] Calcium Carb/Vit D3/Minerals [Calcium 600+D Plus Minerals Tb] 1 ea PO DAILY 06/29/19 [Last Taken Unknown] amLODIPine BESYLATE [Norvasc] 5 mg PO HS 06/29/19 [Last Taken Unknown] Amiodarone HCl 200 mg PO DAILY 12/21/19 [Last Taken Unknown] Benazepril HCl 10 mg PO 12/25/19 [Last Taken Unknown] - History of Present Illness Narrative: Patient had a syncopal episode about two hours prior to coming here. She states that she was standing in her living 'doing something' when she suddenly found herself on the floor. She thinks she passed out briefly, can't remember any symptoms prior to that, was able to get up by herself and call for help. She states that her 'head feels funny', denies any headache, no chest pain, no nausea or vomiting. She had a stent placed years ago and was in the ER four days for something related to her heart (can't remember what) According to her chart she was seen for light headedness, she also has a history of intermittent atrial fibrillation, was seen in the ER in 11/10/2019 for afib and had a near syncopal episode when converting to SR, was discharged on metoprolol 25mg. She has a bottle of amiodarone 200mg from Dr Reid (11/24/19) with instruction to stop metropolol. She states that she takes it out of her blister packs. In her chart she has repeated HR in the 50's Date (Duration): 12/25/19 Prior Episodes: Present: single episode today Symptoms prior to episode: Present: none Activity at time of episode: Present: standing Character of event: Present: brief (seconds) Location of Injury: Present: other - right hip pain Current Symptoms: Present: light headedness Prior Treament: Reports: recently seen Review of Systems - Review of Systems Constitutional: Absent: recent illness, fever, malaise EYE: Absent: vision changes ENT: Absent: nose congestion, sore throat Respiratory: Absent: shortness of breath, cough Cardiology: Absent: chest pain Gastrointestinal/Abdominal: Absent: nausea, vomiting, abdominal pain Neurological: Present: dizziness/light-headedness. Absent: headache Medical History (Last Reviewed 12/25/19 @ 16:56 by Shireen David MD) Atrial fibrillation Coronary artery disease Hyperlipidemia Hypertension Surgical History: Surgical History (Last Reviewed 12/25/19 @ 16:56 by Shireen David MD) History of heart artery stent Family History: Family History (Last Reviewed 12/25/19 @ 16:30 by Zamzam Wright RN) Mother Dementia Son Social History: (Last Reviewed 12/25/19 @ 16:30 by Zamzam Wright RN) Tobacco: Smoking Status: Never smoker Physical Exam - Physical Exam General Appearance: Present: wd/wn, alert, no apparent distress Head Exam: Present: normal inspection, no evidence of injury Eye Exam: Normal inspection: bilateral, PERRL: bilateral Neck: Present: nontender, supple, full range of motion Respiratory: Present: no respiratory distress, normal breath sounds, no accessory muscle use, lungs clear Cardiovascular/Chest: Present: regular rate, rhythm, other - right posterior chest: very superficial abrasion Gastrointestinal/Abdominal: Present: normal bowel sounds, nontender Back Exam: Present: normal inspection, normal range of motion, no vertebral tenderness Extremity Exam: Present: normal inspection, normal range of motion, other - slight tenderness over right lateral hip, no bruising, full range of motion, walks without limp Neurological Exam: Present: alert, oriented, normal mood/affect, no motor/sensory deficits Skin Exam: Present: normal color, warm/dry Progress - Results and Orders Patient's Lab Results:: I have reviewed the patient's lab results. - Vital Signs Patient's Vital Signs:: I have reviewed the patient's vital signs. Vital Signs: Vital Signs 12/25/19 16:18 12/25/19 16:36 Temperature 36.1 C Pulse Rate 57 L 51 L Respiratory Rate 20 Blood Pressure 154/64 H O2 Sat by Pulse Oximetry 100 - EKG EKG #1 EKG: NSR - sinus bradycardia, RBBB, unchanged from - 12/21/2019 EKG read: Interp. by me - X-Ray X-Ray #1 X-Ray: chest - no acute changes Interpretation: Reviewed by me - Progress/Reassessment Progress Note-Subjective: 12/25/19 17:48 discussed test results with patient HR persistently at 46 offered admission, patient agreed 12/25/19 17:49 discussed with sade Doran to admit for observation for syncope and symptomatic bradycardia the question is if patient truly is taking our the metropolol as she claims, if so amiodarone dose might be too strong for her might need cardiology consult as medication meant to control her intermittent fast heart rate/a-fib is making her too bradycardic Departure Clinical Impression: Bradycardia, Syncope and collapse - Departure Disposition: Still a patient Condition: Stable
[2019-12-25 17:05] LABS: ALT 18 U/L (19-67); AST 18 U/L (0-48); Albumin * 3.8 gm/dl (3.4-5.0); Alkaline Phosphatase * 54 U/L (50-170); BUN/Creatinine Ratio 13.6 (9.0-21.6); Bilirubin, Total 0.4 mg/dL (0.0-1.1); Blood Urea Nitrogen 16 mg/dL (3-23); Ca. Corrected For Albumin 8.9 mg/dL (8.4-10.2); Calcium * 9.1 mg/dL (7.9-10.9); Chloride 103 mmol/L (97-106); Glucose * 143 mg/dL (70-110); Sodium 139 mmol/L (132-142); Total Protein 6.9 gm/dL (6.2-8.2); Troponin I Less than 0.017 ng/mL (0.00-0.10)
[2019-12-25] MEDS ORDERED: GABAPENTIN 300 MG CAPSULE PO SCH (21:00)
[2019-12-25] MEDS ORDERED: amLODIPine BESYLATE 5 MG TABLET PO SCH (21:00)
--- NOTE | 2019-12-25 21:13 | HP ---
Chief Complaint - Chief Complaint Date of Service: 12/25/19 Time of Service: 21:00 Chief Complaint: syncope with collapse History of Present Illness: Heavenly Norris is an 84-year-old female patient with a history as below: Patient had a syncopal episode about two hours prior to coming here. She states that she was standing in her living 'doing something' when she suddenly found herself on the floor. She thinks she passed out briefly, can't remember any symptoms prior to that, was able to get up by herself and call for help. She states that her 'head feels funny', denies any headache, no chest pain, no nausea or vomiting. She had a stent placed years ago and was in the ER four days for something related to her heart (can't remember what) According to her chart she was seen for light headedness, she also has a history of intermittent atrial fibrillation, was seen in the ER in 11/10/2019 for afib and had a near syncopal episode when converting to SR, was discharged on metoprolol 25mg. She has a bottle of amiodarone 200mg from Dr Reid (11/24/19) with instruction to stop metropolol. She states that she takes it out of her blister packs. In her chart she has repeated HR in the 50's She has mid to observation on telemetry. She is complaining of some discomfort in her right hip with what feels to be a hematoma. This has not been x-rayed and I will do so in the morning. Medical History (Last Reviewed 12/25/19 @ 16:56 by Shireen David MD) Atrial fibrillation Coronary artery disease Hyperlipidemia Hypertension Surgical History: Surgical History (Last Reviewed 12/25/19 @ 16:56 by Shireen David MD) History of heart artery stent Family History: Family History (Last Reviewed 12/25/19 @ 16:30 by Zamzam Wright RN) Mother Dementia Son Social History: (Last Reviewed 12/25/19 @ 16:30 by Zamzam Wright RN) Tobacco: Smoking Status: Never smoker Review Of Systems (GEN) - Review of Systems Generalized/Overall Review: Present: Weakness, Malaise EENTM: Present: No Symptoms Reported Respiratory: Present: No Symptoms Reported Cardiac: Present: Syncope, Other - Bradycardia Abdominal: Present: No Symptoms Reported Genitourinary: Present: No Symptoms Reported Musculoskeletal: Present: Muscle Pain - Right hip Neurological: Present: No Symptoms Reported Skin: Present: No Symptoms Reported Endocrine: Present: No Symptoms Reported Immunizations: IMMUNIZATION HX Immunizations Up to Date Yes History of Influenza Vaccine Yes Hx Pneumococcal Vaccination Yes Allergies/Adverse Reactions: Allergies Allergy/AdvReac Type Severity Reaction Status Date / Time lidocaine Allergy Verified 12/25/19 16:30 Home Medications: HOME MEDICATIONS Simvastatin [Zocor] 20 mg PO HS 04/02/16 [Last Taken 04/28/19 21:00] Nitroglycerin 0.4 mg SL Q5MIN PRN 07/20/17 [Last Taken 04/29/19 20:20] Gabapentin 600 mg PO 0900,1500,2100 06/28/18 [Last Taken 04/29/19 15:00] Acetaminophen 325 mg PO 0900,1500,2100 04/29/19 [Last Taken 04/29/19 15:00] Aspirin [Aspirin EC] 81 mg PO DAILY 06/29/19 [Last Taken Unknown] Calcium Carb/Vit D3/Minerals [Calcium 600+D Plus Minerals Tb] 1 ea PO DAILY 06/29/19 [Last Taken Unknown] amLODIPine BESYLATE [Norvasc] 5 mg PO HS 06/29/19 [Last Taken Unknown] Amiodarone HCl 200 mg PO DAILY 12/21/19 [Last Taken Unknown] Benazepril HCl 10 mg PO 12/25/19 [Last Taken Unknown] Exam - Exam Vital Signs: Vital Signs - Last Taken Temp 36.5 C 12/25/19 18:30 Pulse 60 12/25/19 18:30 Resp 20 12/25/19 18:30 BP 110/60 12/25/19 18:30 Pulse Ox 100 12/25/19 18:30 Constitutional: Present: Alert, Oriented x3, Cooperative, Well developed, Well nourished, No distress ENT Exam: Present: normal ENT inspection, hearing grossly normal, pharynx normal, TMs normal Eye Exam: bilateral eye: normal inspection, PERRL, EOMI Neck: Present: non-tender, full range of motion, supple, normal inspection Back Exam: Present: normal inspection, no CVA tenderness, no vertebral tenderness, vertebral tenderness - Lumbar spine areachronic Respiratory: Present: chest non-tender, lungs clear, normal breath sounds, no respiratory distress, no accessory muscle use, respiratory distress Cardiovascular/Chest: Present: normal peripheral pulses, regular rate, rhythm, no chest tenderness, no edema, no gallop, no murmur, no rub Peripheral Pulses: carotid (R): 2+, carotid (L): 2+, radial (R): 2+, radial (L): 2+ Abdomen: Present: Normal bowel sounds, soft, nontender, nondistended, no rebound tenderness, no hepatospenomegaly, no masses /Rectal: Present: Exam deferred Extremity: Present: normal range of motion, non-tender, normal inspection, no pedal edema, no calf tenderness, normal capillary refill Skin Exam: Present: normal color, warm/dry, no cyanosis Lymphatic: Present: no adenopathy Neurologic: Present: transfer controller II-XII nml as tested, normal cerebellar test, no motor/sensory deficits, alert, normal mood/affect, oriented x 3 Appearance: Present: appropriate appearance, appropriate insight, neat, no memory impairment, denies illness Eye contact: Present: cooperative, good eye contact, normal speech Thoughts: Present: normal thought pattern, no apparent hallucination Diagnostic Studies: Abnormal Lab Results 12/25/19 12/25/19 Range/Units 16:42 16:42 RBC 3.69 L (4.2-5.4) M/mm3 Hgb 12.2 L (12.5-16.0) gm/dL Hct 36.1 L (37.0-47.0) % MCH 33.1 H (27-31) pg Est GFR (Non-Af Amer) 46 L (60-130) mL/min Random Glucose 143 H (70-110) mg/dL ALT 18 L (19-67) U/L Laboratory Results WBC 6.2 K/mm3 (4.0-10.5) 12/25/19 16:42 RBC 3.69 M/mm3 (4.2-5.4) L 12/25/19 16:42 Hgb 12.2 gm/dL (12.5-16.0) L 12/25/19 16:42 Hct 36.1 % (37.0-47.0) L 12/25/19 16:42 MCV 97.8 fl (78-100) 12/25/19 16:42 MCH 33.1 pg (27-31) H 12/25/19 16:42 MCHC 33.8 g/dl (32-36) 12/25/19 16:42 RDW 12.9 % (11.5-14.0) 12/25/19 16:42 Plt Count 174 K/mm3 (150-450) 12/25/19 16:42 MPV 10.5 fl (8-12.5) 12/25/19 16:42 Immature Gran % (Auto) 0.20 % (0.001-0.429) 12/25/19 16:42 Immature Gran # (Auto) 0.01 K/mm3 (0.000-0.0310) 12/25/19 16:42 Neutrophils % 58.4 % (42-75.0) 12/25/19 16:42 Lymphocytes % 33.5 % (20-51) 12/25/19 16:42 Monocytes % 7.4 % (0.0-9) 12/25/19 16:42 Eosinophils % 0.0 % (0.0-3.0) 12/25/19 16:42 Basophils % 0.5 % (0.0-1.0) 12/25/19 16:42 Nucleated RBC % 0.0 k/mm3 (0-1) 12/25/19 16:42 Neutrophils # 3.6 K/mm3 (1.3-6.0) 12/25/19 16:42 Lymphocytes # 2.07 k/mm3 (1.5-3.5) 12/25/19 16:42 Monocytes # 0.5 k/mm3 (0.0-1.0) 12/25/19 16:42 Eosinophils # 0.0 k/mm3 (0.0-0.7) 12/25/19 16:42 Absolute Basophils 0.0 k/mm3 (0.0-0.1) 12/25/19 16:42 Sodium 139 mmol/L (132-142) 12/25/19 16:42 Plasma Sodium 140 mmol/L (130-142) 12/25/19 16:42 Potassium 4.0 mmol/L (3.4-4.6) 12/25/19 16:42 Chloride 103 mmol/L (97-106) 12/25/19 16:42 Carbon Dioxide 29.0 mmol/L (24-32.6) 12/25/19 16:42 Anion Gap 11.0 mmol/L (6.8-13.8) 12/25/19 16:42 BUN 16 mg/dL (3-23) 12/25/19 16:42 Creatinine 1.18 mg/dL (0.4-1.4) 12/25/19 16:42 Est GFR (Non-Af Amer) 46 mL/min (60-130) L 12/25/19 16:42 BUN/Creatinine Ratio 13.6 (9.0-21.6) 12/25/19 16:42 Random Glucose 143 mg/dL (70-110) H 12/25/19 16:42 Calcium 9.1 mg/dL (7.9-10.9) 12/25/19 16:42 Calcium Adj for Albumin 8.9 mg/dL (8.4-10.2) 12/25/19 16:42 Total Bilirubin 0.4 mg/dL (0.0-1.1) 12/25/19 16:42 AST 18 U/L (0-48) 12/25/19 16:42 ALT 18 U/L (19-67) L 12/25/19 16:42 Alkaline Phosphatase 54 U/L (50-170) 12/25/19 16:42 Troponin I Less than 0.017 ng/mL (0.00-0.10) 12/25/19 16:42 Total Protein 6.9 gm/dL (6.2-8.2) 12/25/19 16:42 Albumin 3.8 gm/dl (3.4-5.0) 12/25/19 16:42 Assessment/Plan - Narrative Narrative: 1. Admit to observation status on telemetry 2. Continue current medications from home 3. X-ray right hip tomorrow morning 4. CBC, CMP tomorrow morning 5. EKG tomorrow morning 6. Have physical therapy evaluate and walker to make sure she is independent to go home. - Assessment/Plan (1) Syncope and collapse Problem: Acute (2) Right hip pain Problem: Acute (3) Hematoma of right hip Problem: Acute (4) Back ache Problem: Acute Qualifiers: Back pain location: low back pain Chronicity: chronic Back pain laterality: bilateral Sciatica presence: with sciatica Sciatica laterality: sciatica laterality unspecified Qualified Code(s): M54.40 - Lumbago with sciatica, unspecified side; G89.29 - Other chronic pain (5) Bradycardia Problem: Chronic
[2019-12-25] MEDS: ACETAMINOPHEN 325 MG TABLET PO SCH (22:23)
[2019-12-26 06:30] LABS: Hematocrit 35.1 % (37.0-47.0); Hemoglobin 11.7 gm/dL (12.5-16.0); Mean Cell Volume 97.5 fl (78-100); Mean Corpuscular Hemoglobin 32.5 pg (27-31); Mean Corpuscular Hgb Conc 33.3 g/dl (32-36); Mean Platelet Volume 10.3 fl (8-12.5); Neutrophil % 47.9 % (42-75.0); Platelet Count 153 K/mm3 (150-450); Red Cell Distribution Width 12.8 % (11.5-14.0); White Blood Count 6.3 K/mm3 (4.0-10.5)
[2019-12-26 06:41] LABS: Albumin * 3.4 gm/dl (3.4-5.0); Anion Gap 11.8 mmol/L (6.8-13.8); BUN/Creatinine Ratio 13.6 (9.0-21.6); Bilirubin, Total 0.5 mg/dL (0.0-1.1); Ca. Corrected For Albumin 8.6 mg/dL (8.4-10.2); Calcium * 8.4 mg/dL (7.9-10.9); Carbon Dioxide 28.5 mmol/L (24-32.6); Potassium 4.3 mmol/L (3.4-4.6); Total Protein 6.2 gm/dL (6.2-8.2)
[2019-12-26] MEDS: ACETAMINOPHEN 325 MG TABLET PO SCH ×2 (07:14→08:30)
[2019-12-26] MEDS ORDERED: GABAPENTIN 600 MG TABLET PO SCH (09:00)
[2019-12-26] MEDS ORDERED: ASPIRIN 81 MG TABLET.DR PO SCH (09:00)
[2019-12-26] MEDS ORDERED: CALCIUM CARBONATE/VITAMIN D3 1 TAB TABLET PO SCH (09:00)
[2019-12-26] MEDS ORDERED: ENALAPRIL MALEATE 5 MG TABLET PO SCH (09:00)
[2019-12-26] MEDS ORDERED: AMIODARONE HCL 200 MG TABLET PO SCH (09:00)
[2019-12-26] MEDS ORDERED: ACETAMINOPHEN 325 MG TABLET PO ONE (09:50)
--- NOTE | 2019-12-26 11:07 | DS ---
(1) Syncope and collapse Problem: Acute (2) Right hip pain Problem: Acute (3) Hematoma of right hip Problem: Acute Qualifiers: Encounter type: subsequent encounter Qualified Code(s): S70.01XD - Contusion of right hip, subsequent encounter (4) Back ache Problem: Acute Qualifiers: Back pain location: low back pain Chronicity: chronic Back pain laterality: bilateral Sciatica presence: with sciatica Sciatica laterality: sciatica laterality unspecified Qualified Code(s): M54.40 - Lumbago with sciatica, unspecified side; G89.29 - Other chronic pain (5) Bradycardia Problem: Chronic Date of Discharge:: 12/26/19 Hospital Course: Heavenly Norris is an 84-year-old female who had a syncopal event with collapse yesterday. She has chronic low back pain but this morning reports that her back pain is much worse than usual since the fall. She is also having pain in the right hip. The right hip x-ray was negative. The spine is not yet been x-rayed and will be ordered before her discharge. She did walk about 200 feet but at 100 feet had to stop and rest because her back was hurting so much and respiratory therapy reported that she was complaining of feeling lightheaded. She does not have any recollection of that now. She has a walker at home. I have not seen any cardiac dysrhythmias that require intervention at this time. This morning's lab is uneventful. EGFR is improved slightly to 50. Procedures Performed: none Results and Findings: Lab Pending Results 12/25/19 16:42: WBC 6.2, RBC 3.69 L, Hgb 12.2 L, Hct 36.1 L, MCV 97.8, MCH 33.1 H, MCHC 33.8, RDW 12.9, Plt Count 174, MPV 10.5, Immature Gran % (Auto) 0.20, Immature Gran # (Auto) 0.01, Neutrophils % 58.4, Lymphocytes % 33.5, Monocytes % 7.4, Eosinophils % 0.0, Basophils % 0.5, Nucleated RBC % 0.0, Neutrophils # 3.6, Lymphocytes # 2.07, Monocytes # 0.5, Eosinophils # 0.0, Absolute Basophils 0.0 12/25/19 16:42: Sodium 139, Plasma Sodium 140, Potassium 4.0, Chloride 103, Carbon Dioxide 29.0, Anion Gap 11.0, BUN 16, Creatinine 1.18, Est GFR (Non-Af Amer) 46 L, BUN/Creatinine Ratio 13.6, Random Glucose 143 H, Calcium 9.1, Calcium Adj for Albumin 8.9, Total Bilirubin 0.4, AST 18, ALT 18 L, Alkaline Phosphatase 54, Troponin I Less than 0.017, Total Protein 6.9, Albumin 3.8 12/26/19 06:20: WBC 6.3, RBC 3.60 L, Hgb 11.7 L, Hct 35.1 L, MCV 97.5, MCH 32.5 H, MCHC 33.3, RDW 12.8, Plt Count 153, MPV 10.3, Immature Gran % (Auto) 0.20, Immature Gran # (Auto) 0.01, Neutrophils % 47.9, Lymphocytes % 38.5, Monocytes % 10.5 H, Eosinophils % 2.4, Basophils % 0.5, Nucleated RBC % 0.0, Neutrophils # 3.0, Lymphocytes # 2.42, Monocytes # 0.7, Eosinophils # 0.2, Absolute Basophils 0.0 12/26/19 06:20: Sodium 140, Plasma Sodium 140, Potassium 4.3, Chloride 104, Carbon Dioxide 28.5, Anion Gap 11.8, BUN 15, Creatinine 1.10, Est GFR (Non-Af Amer) 50 L, BUN/Creatinine Ratio 13.6, Random Glucose 99 D, Calcium 8.4, Calcium Adj for Albumin 8.6, Total Bilirubin 0.5, AST 17, ALT 19, Alkaline Phosphatase 52, Total Protein 6.2, Albumin 3.4 Discharge Location: Home Disposition: Home self-care Condition: Stable Face to Face Encounter completed per [facility] Guidelines: No Discharge Activity: Activity as tolerated, Weight bearing Discharge Diet: General/regular food Complete Home Medications List: Complete Home Medication List: Nitroglycerin 0.4 mg SL Q5MIN PRN 07/20/17 Gabapentin 600 mg PO 0900,1500,2100 06/28/18 Acetaminophen 325 mg PO 0900,1500,2100 04/29/19 Aspirin [Aspirin EC] 81 mg PO DAILY 06/29/19 Calcium Carb/Vit D3/Minerals [Calcium 600+D Plus Minerals Tb] 1 ea PO DAILY 06/29/19 amLODIPine BESYLATE [Norvasc] 5 mg PO HS 06/29/19 Amiodarone HCl 200 mg PO DAILY 12/21/19 Benazepril HCl 10 mg PO 12/25/19
[2019-12-26] MEDS ORDERED: HYDROcodone/ACETAMINOPHEN 1 EACH TABLET PO ONE (11:55)
[2019-12-26 13:24] VITALS: BP 128/46
== END 2019-12-26 13:50 | disposition home or self-care (01) ==
LOC: ER 16:14 → MS 16:14
PROVIDERS: ADMIT Family Medicine; ATTEND Family Medicine
DX: M25.551 Pain in right hip; M54.40 Lumbago with sciatica, unspecified side; R00.1 Bradycardia, unspecified; S70.01XA Contusion of right hip, initial encounter; R55 Syncope and collapse; I10 Essential (primary) hypertension; E78.5 Hyperlipidemia, unspecified
CPT/HCPCS: 36415; 71020; 71046; 72070; 72110; 73502; 80053; 84484; 85025; 93005; 97140; 97161; 99284; 99285; G0378

== ENCOUNTER 2020-06-10 10:28 | Observation (INO) ==
[2020-06-10] MEDS ORDERED: HYDROcodone/ACETAMINOPHEN 1 EACH TABLET PO ONE (11:13)
[2020-06-10 11:21] LABS: Urine Bilirubin Negative (NEGATIVE); Urine Ketone Negative (NEGATIVE); Urine Nitrite Negative (NEGATIVE); Urine Protein 15 mg/dL (NEGATIVE); Urine Urobilinogen Normal (NORMAL)
--- NOTE | 2020-06-10 11:23 | ERNOTE ---
Back Pain ER HPI Date of Service: 06/10/20 Presenting Symptoms: hx chronic back pain Time Seen by Provider: 06/10/20 10:39 Source: patient Exam Limitations: no limitations Immunizations: IMMUNIZATION HX Immunizations Up to Date Yes History of Influenza Vaccine Yes Hx Pneumococcal Vaccination No Allergies/Adverse Reactions: Allergies lidocaine Allergy (Verified 06/10/20 10:50) Home Medications: HOME MEDICATIONS Acetaminophen 325 mg PO 0900,1500,2100 04/29/19 [Last Taken 04/29/19 15:00] Aspirin [Aspirin EC] 81 mg PO DAILY 06/29/19 [Last Taken Unknown] Calcium Carb/Vit D3/Minerals [Calcium 600+D Plus Minerals Tb] 1 ea PO DAILY [Last Taken Unknown] Amiodarone HCl 200 mg PO DAILY 12/21/19 [Last Taken Unknown] benazepril 5 mg tablet 5 mg PO DAILY tab 03/17/20 [Last Taken Unknown] simvastatin 20 mg tablet 20 mg PO HS tab 03/17/20 [Last Taken Unknown] celecoxib 100 mg capsule 100 mg PO BID #60 cap 05/26/20 [Last Taken Unknown] Docusate Sodium [Colace] 200 mg PO BID PRN 06/10/20 [Last Taken Unknown] Gabapentin 1,200 mg PO 0900,1500,2100 06/10/20 [Last Taken Unknown] Cyclobenzaprine HCl [Flexeril] 7.5 mg PO TID PRN #90 tab 06/11/20 [Last Taken Unknown] - Pain Score Pain Score #1 Pain Score: 8 Narrative: The patient is a 84 year old female who presents for lumbar pain with radicular symptoms to right leg which has been present for several weeks but worsened this am. There are no associated symptoms. The patient reports pain to diffuse low back and right buttock and leg. There are alleviating factors of position. There are aggravating factors of ROM, twisting and forward flexion of lumbar spine. Previous treatments have included: Aspirin without improvement. The past medical history includes: HTN, HLD, Afib and CAD. The social history is negative. The patient has had no known ill contacts. Patient presents with worsening chronic low back pain with sciatic symptoms to right leg. Patient denies recurrent fall or injury since last occurrence a few weeks ago. Patient saw her PCP, , 05/26/20 in which her Diclofenac was discontinued due to no improvement and patient was began on Celebrex. Patient was also referred to physical therapy for possible aquatic therapy as well as home health care. Patient was deemed a non-surgical candidate for intervention of back pain and has had several epidural steroid injections without improvement. Patient has received [place] in the past for pain but was not prescribed due to patient being high risks for falls. Patient denies changes to bowel or bladder function and denies saddle numbness. Review of Systems - Review of Systems Constitutional: Present: no symptoms reported. Absent: recent illness, fever, fatigue EYE: Present: no symptoms reported ENT: Present: no symptoms reported. Absent: ear pain, nasal drainage, sore throat Respiratory: Present: no symptoms reported. Absent: shortness of breath, cough Cardiology: Present: no symptoms reported. Absent: chest pain Gastrointestinal/Abdominal: Present: no symptoms reported. Absent: nausea, vomiting, diarrhea, abdominal pain Genitourinary: Present: no symptoms reported. Absent: dysuria, decreased urinary output Musculoskeletal: Present: back pain, joint pain Skin: Present: no symptoms reported. Absent: rash Neurological: Present: no symptoms reported. Absent: numbness, tingling All Other Systems: All systems neg except as marked Medical History (Last Reviewed 06/10/20 @ 11:16 by DWAYNE Enriquez) Atrial fibrillation Coronary artery disease Hyperlipidemia Hypertension Surgical History: Surgical History (Last Reviewed 06/10/20 @ 11:16 by DWAYNE Enriquez) History of heart artery stent Family History: Family History (Last Reviewed 06/10/20 @ 11:16 by DWAYNE Enriquez) Mother Dementia Son Social History: (Last Reviewed 06/10/20 @ 11:16 by DWAYNE Enriquez) Social History: adopted: No foster care: No intermediate: No lives independently: Yes household members: none caregiver/support person: No current occupational status: retired Highest education level completed: high school graduate Service: No Tobacco: Smoking Status: Never smoker Alcohol: alcohol intake: never Substance Use: substance use type: does not use Dietary Habits: caffeine: Yes Physical Exam - Physical Exam General Appearance: Present: wd/wn, alert, moderate distress Head Exam: Present: normal inspection, no evidence of injury Eye Exam: Normal inspection: bilateral Neck: Present: normal inspection Respiratory: Present: no respiratory distress, normal breath sounds, no acc essory muscle use, chest nontender, lungs clear Cardiovascular/Chest: Present: regular rate, rhythm, no murmur Gastrointestinal/Abdominal: Present: normal bowel sounds, nontender, nondistended, soft, no organomegaly Back Exam: Present: no vertebral tenderness, decreased range of motion - pain with twist or rolling to diffuse lumbosacral region with radicular pain to right buttock and posterior thigh, right lumbar paraspinal pain with palpation as well as point tenderness to right buttock Extremity Exam: Present: normal range of motion, other - negative bilateral straight leg raise test Neurological Exam: Present: alert, oriented, normal mood/affect, no motor/sensory deficits Skin Exam: Present: normal color, warm/dry Progress - Date and Time Seen: Date and Time: 06/10/20 11:23 Will administer [place] 1 tab to aid with patients unmanaged pain for tolerance of imaging. Minimal options for management of pain due to NSAID therapy already initiated as well as previous steroid injections. 06/10/20 12:03 Patient receiving minimal relief from Len[place]a. Will apply Lidoderm patch and place patient on oral steroids to aid with inflammation and pain. 06/10/20 12:19 Patient remains not receiving relief after Len[place]a, feels that she is unable to tolerate pain and manage at home especially due to increased risk for falls or injury associated with increased narcotic pain medication administration for management. 06/10/20 12:20 Case was reviewed with for admission due to patients unmanaged pain and high risk for falls and injury associated with increased pain management at home. Will review with as he has recently evaluated patient and does not feel that patient should be admitted. Instructed that if plan is for admission need to present to ER for patient evaluation. Awaiting return call for plan of care for patient. Unable to use Lidoderm after further review of chart and discrepancy between pharmacy documentation. Will discontinue Lidoderm patch due to allergy. 06/10/20 13:12 Patient remains to have unmanaged pain after initial dose of Fentanyl, will repeat dosing. 06/10/20 13:23 Spoke with and will present to ER for patient evaluation and plan of care. 06/10/20 13:47 Patient having improved pain after repeat Fentanyl dosing, 7/10. Able to better transfer self. Remain awaiting for evaluation and plan of care. 06/10/20 14:27 Case reviewed with Mayela director of casework department, will follow up for plan of care. 06/10/20 15:00 Discussed with and agrees to admit for pain management and intractable back pain. - Results and Orders Patient's Lab Results:: I have reviewed the patient's lab results. - Vital Signs Patient's Vital Signs:: I have reviewed the patient's vital signs. Vital Signs: Vital Signs 06/10/20 10:44 Temperature 36.1 C Pulse Rate 65 Respiratory Rate 20 Blood Pressure 121/79 O2 Sat by Pulse Oximetry 99 - X-Ray X-Ray #1 X-Ray: lumbosacral Interpretation: Reviewed by me X-ray Comments: IMPRESSION: 1. ROTOSCOLIOSIS WITH CONVEXITY DIRECTED TO THE LEFT AND STRAIGHTENING OF LORDOTIC CURVATURE, UNCHANGED. 2. MARKED DISC SPACE NARROWING AT T12/L1, L3/4, AND L4/5 WITH VARYING DEGREES OF ENDPLATE DEGENERATIVE CHANGE. 3. MODERATE TO MARKED DEGENERATIVE SPURRING IDENTIFIED DIFFUSELY WITHIN THE FACET JOINTS. 4. NO DEFINABLE ACUTE OSSEOUS ABNORMALITY. Electronically signed by Priyank Freitas M.D.. - Progress/Reassessment Chief Complaint: Back Pain Departure Clinical Impression: Intractable low back pain - Departure Disposition: Still a patient Condition: Fair
[2020-06-10 11:36] LABS: Urine Appearance Clear (CLEAR); Urine Bacteria None Seen; Urine Blood 5 /ul (NEGATIVE); Urine Color Yellow; Urine RBC 0-5 /hpf (0-5); Urine WBC None Seen /hpf (0-5)
[2020-06-10] MEDS ORDERED: LIDOCAINE 1 PATCH ADH..PATCH TP ONE (12:15)
[2020-06-10] MEDS ORDERED: fentaNYL CITRATE/PF 50 MCG/ML AMPUL IV ONE ×2 (12:30→13:12)
[2020-06-10 12:45] LABS: Anion Gap 12.3 mmol/L (6.8-13.8); BUN/Creatinine Ratio 12.7 (9.0-21.6); Bilirubin, Total 0.6 mg/dL (0.0-1.1); Ca. Corrected For Albumin 9.4 mg/dL (8.4-10.2); Calcium * 9.7 mg/dL (7.9-10.9); Potassium 4.3 mmol/L (3.4-4.6)
[2020-06-10 12:55] LABS: Mean Cell Volume 101.1 fl (78-100); Mean Corpuscular Hemoglobin 32.8 pg (27-31); Mean Corpuscular Hgb Conc 32.4 g/dl (32-36); Mean Platelet Volume 10.3 fl (8-12.5); Neutrophil # 4.3 K/mm3 (1.3-6.0); Neutrophil % 67.6 % (42-75.0); Platelet Count 179 K/mm3 (150-450); Red Blood Count 3.66 M/mm3 (4.2-5.4); Red Cell Distribution Width 13.4 % (11.5-14.0); White Blood Count 6.4 K/mm3 (4.0-10.5)
[2020-06-10] MEDS ORDERED: fentaNYL 50 MCG PATCH.TD72 TD SCH (15:00)
[2020-06-10] MEDS ORDERED: ACETAMINOPHEN 500 MG TABLET PO PRN (16:51)
[2020-06-10] MEDS ORDERED: HYDROcodone/ACETAMINOPHEN 1 EACH TABLET PO PRN (16:58)
[2020-06-10] MEDS ORDERED: DOCUSATE SODIUM 100 MG CAPSULE PO PRN (16:58)
[2020-06-10] MEDS ORDERED: fentaNYL 25 MCG PATCH.TD72 TD SCH (17:15)
--- NOTE | 2020-06-10 17:22 | HP ---
Chief Complaint - Chief Complaint Date of Service: 06/10/20 Time of Service: 17:09 Chief Complaint: I have excruciating back pain History of Present Illness: 84-year-old female with past medical history of CAD, atrial fibrillation, hypertension, CKD, and chronic back pain. Was evaluated in the ER for worsening lower back pain with radiculopathy of her right lower extremity. Patient has a long history of issues with her back related to past injuries and degenerative changes. She was recently seen by a family physician who evaluated her back and determined that the patient was a poor candidate for surgery or ongoing steroid injections. He referred her to physical therapy for aqua therapy however the patient has not started. She says since that visit her pain had been somewhat controlled however yesterday she started in the had a worsening of her pain. Since then her pain has been steadily increasing despite taking at home pain medications and aspirin and being administered opioids such as fentanyl in the ER. Patient lives alone and is a high fall risk therefore he was not safe for her to be sent home especially since her pain was not adequately controlled. Imaging of the patient's back revealed chronic degene rative findings and was negative for any acute abnormalities. Medical History (Last Reviewed 06/10/20 @ 11:16 by DWAYNE Enriquez) Atrial fibrillation Coronary artery disease Hyperlipidemia Hypertension Surgical History: Surgical History (Last Reviewed 06/10/20 @ 11:16 by DWAYNE Enriquez) History of heart artery stent Family History: Family History (Last Reviewed 06/10/20 @ 11:16 by DWAYNE Enriquez) Mother Dementia Son Social History: (Last Reviewed 06/10/20 @ 11:16 by DWAYNE Enriquez) Social History: adopted: No foster care: No retirement: No lives independently: Yes household members: none caregiver/support person: No current occupational status: retired Highest education level completed: high school graduate Service: No Tobacco: Smoking Status: Never smoker Alcohol: alcohol intake: never Substance Use: substance use type: does not use Dietary Habits: caffeine: Yes Peds Patient Hx - Developmental: No Pertinent Hx Peds Patient Hx - Medical: No Pertinent Hx Peds Patient Hx - Cardiac/Respiratory: No Pertinent Hx Peds Patient Hx - Surgical: No Surgical History Patient History - Cancer: No Hx of Cancer Review Of Systems (GEN) - Review of Systems Generalized/Overall Review: Present: No Symptoms Reported EENTM: Present: No Symptoms Reported Respiratory: Present: No Symptoms Reported Cardiac: Present: No Symptoms Reported Abdominal: Present: No Symptoms Reported Genitourinary: Present: No Symptoms Reported Musculoskeletal: Present: Back Pain Neurological: Present: No Symptoms Reported Skin: Present: No Symptoms Reported Endocrine: Present: No Symptoms Reported Immunizations: IMMUNIZATION HX Immunizations Up to Date Yes History of Influenza Vaccine Yes Hx Pneumococcal Vaccination No Allergies/Adverse Reactions: Allergies Allergy/AdvReac Type Severity Reaction Status Date / Time lidocaine Allergy Verified 06/10/20 10:50 Home Medications: HOME MEDICATIONS Acetaminophen 325 mg PO 0900,1500,2100 04/29/19 [Last Taken 04/29/19 15:00] Aspirin [Aspirin EC] 81 mg PO DAILY 06/29/19 [Last Taken Unknown] Calcium Carb/Vit D3/Minerals [Calcium 600+D Plus Minerals Tb] 1 ea PO DAILY 06/29/19 [Last Taken Unknown] Amiodarone HCl 200 mg PO DAILY 12/21/19 [Last Taken Unknown] benazepril 5 mg tablet 5 mg PO DAILY tab 03/17/20 [Last Taken Unknown] simvastatin 20 mg tablet 20 mg PO HS tab 03/17/20 [Last Taken Unknown] celecoxib 100 mg capsule 100 mg PO BID #60 cap 05/26/20 [Last Taken Unknown] Docusate Sodium [Colace] 200 mg PO BID PRN 06/10/20 [Last Taken Unknown] Gabapentin 1,200 mg PO 0900,1500,2100 06/10/20 [Last Taken Unknown] HYDROcodone/ACETAMINOPHEN [Hydrocodone-Acetamin 5-325 mg] 1 ea PO QID PRN 06/10/20 [Last Taken Unknown] Exam - Exam Vital Signs: Vital Signs - Last Taken Temp 36.6 C 06/10/20 15:46 Pulse 64 06/10/20 15:46 Resp 20 06/10/20 15:46 BP 194/88 H 06/10/20 15:46 Pulse Ox 100 06/10/20 15:46 Constitutional: Present: Alert, Oriented x3, Cooperative, Well developed, Well nourished, No distress, Elderly ENT Exam: Present: normal ENT inspection, hearing grossly normal, pharynx normal, TMs normal Eye Exam: bilateral eye: normal inspection, PERRL, EOMI Neck: Present: non-tender, full range of motion, supple, normal inspection, trachea midline Back Exam: Present: no CVA tenderness, decreased range of motion, vertebral tenderness Breasts: Present: Exam deferred, Nontender Respiratory: Present: chest non-tender, lungs clear, normal breath sounds, no respiratory distress, no accessory muscle use Cardiovascular/Chest: Present: normal peripheral pulses, regular rate, rhythm, no chest tenderness, no edema, no gallop, no JVD, no murmur, no rub Peripheral Pulses: femoral (R): 3+, femoral (L): 3+, dorsalis-pedis (R): 3+, dorsalis-pedis (L): 3+ Abdomen: Present: Normal bowel sounds, soft, nontender, nondistended, no rebound tenderness, no hepatospenomegaly, no masses /Rectal: Present: Exam deferred Extremity: Present: normal range of motion, non-tender, normal inspection, no pedal edema, no calf tenderness, normal capillary refill, pelvis stable Skin Exam: Present: normal color, warm/dry, no cyanosis Lymphatic: Present: no adenopathy Neurologic: Present: explosive ordnance manager II-XII nml as tested, no motor/sensory deficits, alert, normal mood/affect, oriented x 3 Appearance: Present: appropriate appearance, appropriate insight, impaired recent memory, impaired remote memory Eye contact: Present: cooperative, good eye contact, normal speech Thoughts: Present: normal thought pattern, no apparent hallucination Diagnostic Studies: Abnormal Lab Results 06/10/20 06/10/20 06/10/20 Range/Units 11:05 12:27 12:27 RBC 3.66 L (4.2-5.4) M/mm3 Hgb 12.0 L (12.5-16.0) gm/dL MCV 101.1 H (78-100) fl MCH 32.8 H (27-31) pg Monocytes % 9.9 H (0.0-9) % Lymphocytes # 1.39 L (1.5-3.5) k/mm3 Est GFR (Non-Af Amer) 55 L D (60-130) mL/min Random Glucose 138 H (70-110) mg/dL Urine Protein 15 H (NEGATIVE) mg/dL Urine Blood 5 H (NEGATIVE) /ul Laboratory Results WBC 6.4 K/mm3 (4.0-10.5) 06/10/20 12: RBC 3.66 M/mm3 (4.2-5.4) L 06/10/20 12: Hgb 12.0 gm/dL (12.5-16.0) L 06/10/20 12: Hct 37.0 % (37.0-47.0) 06/10/20: MCV 101.1 fl (78-100) H 06/10/20 12: MCH 32.8 pg (27-31) H 06/10/20 12: MCHC 32.4 g/dl (32-36) 06/10/20: RDW 13.4 % (11.5-14.0) 06/10/20: Plt Count 179 K/mm3 (150-450) 06/10/20 12: MPV 10.3 fl (8-12.5) 06/10/20: Immature Gran % (Auto) 0.30 % (0.001-0.429) 06/10/20: Immature Gran # (Auto) 0.02 K/mm3 (0.000-0.0310) 06/10/20: Neutrophils % 67.6 % (42-75.0) 06/10/20: Lymphocytes % 21.9 % (20-51) 06/10/20 12: Monocytes % 9.9 % (0.0-9) H 06/10/20: Eosinophils % 0.0 % (0.0-3.0) 06/10/20: Basophils % 0.3 % (0.0-1.0) 06/10/20 12: Nucleated RBC % 0.0 k/mm3 (0-1) 06/10/20: Neutrophils # 4.3 K/mm3 (1.3-6.0) 06/10/20: Lymphocytes # 1.39 k/mm3 (1.5-3.5) L 06/10/20: Monocytes # 0.6 k/mm3 (0.0-1.0) 06/10/20: Eosinophils # 0.0 k/mm3 (0.0-0.7) 09/25/20 12:27 Absolute Basophils 0.0 k/mm3 (0.0-0.1) 06/10/20 12:27 Sodium 138 mmol/L (132-142) 06/10/20 12: Plasma Sodium 139 mmol/L (130-142) 06/10/20 12:27 Potassium 4.3 mmol/L (3.4-4.6) 06/10/20 12: Chloride 104 mmol/L (97-106) 06/10/20 12: Carbon Dioxide 26.0 mmol/L (24-32.6) 06/10/20 12: Anion Gap 12.3 mmol/L (6.8-13.8) 06/10/20 12: BUN 13 mg/dL (3-23) 06/10/20 12: Creatinine 1.02 mg/dL (0.4-1.4) 06/10/20 12: Est GFR (Non-Af Amer) 55 mL/min (60-130) L D 06/10/20 12: BUN/Creatinine Ratio 12.7 (9.0-21.6) 06/10/20 12: Random Glucose 138 mg/dL (70-110) H 06/10/20 12: Calcium 9.7 mg/dL (7.9-10.9) 06/10/20 12: Calcium Adj for Albumin 9.4 mg/dL (8.4-10.2) 06/10/20 12: Total Bilirubin 0.6 mg/dL (0.0-1.1) 06/10/20 12: AST 21 U/L (0-48) 06/10/20 12: ALT 25 U/L (19-67) 06/10/20 12:27 Alkaline Phosphatase 69 U/L (50-170) 06/10/20 12: Total Protein 7.0 gm/dL (6.2-8.2) 06/10/20 12: Albumin 4.0 gm/dl (3.4-5.0) 06/10/20 12:27 Urine Color Yellow 06/10/20 11:05 Urine Appearance Clear (CLEAR) 06/10/20 11:05 Urine pH 7.0 pH (5.0-7.0) 06/10/20 11:05 Ur Specific [place] 1.020 SP.GR. (1.005-1.010) 06/10/20 11:05 Urine Protein 15 mg/dL (NEGATIVE) H 06/10/20 11:05 Urine Glucose (UA) Negative mg/dL (NEGATIVE) 06/10/20 11:05 Urine Ketones Negative mg/dL (NEGATIVE) 06/10/20 11:05 Urine Blood 5 /ul (NEGATIVE) H 06/10/20 11:05 Urine Nitrate Negative (NEGATIVE) 06/10/20 11:05 Urine Bilirubin Negative mg/dl (NEGATIVE) 06/10/20 11:05 Prot Sulfosalicylic Acd 1+ mg/dL (0) 06/10/20 11:05 Urine Urobilinogen Normal EU/dl (NORMAL) 06/10/20 11:05 Ur Leukocyte Esterase Negative /ul (NEGATIVE) 06/10/20 11:05 Urine RBC 0-5 /hpf (0-5) 06/10/20 11:05 Urine WBC None seen /hpf (0-5) 06/10/20 11:05 Ur Epithelial Cells 0-5 /hpf (0-5) 06/10/20 11:05 Urine Bacteria None seen (NONE) 06/10/20 11:05 Urine Culture Comments No culture indicated 06/10/20 11:05 Assessment/Plan - Narrative Narrative: Patient was evaluated and medical chart was reviewed and decision to admit to observation on our med surge floor for management of pain due to degenerative vertebral changes was made. Patient continues to complain of pain despite being administered fentanyl and [place] in the ER, fentanyl patch was applied and she was given an additional dose of pain medications. We will see how she tolerates the patch in order to make a determination of the best combination of meds to discharge her within the morning. Physical exam did not reveal any new neurol ogical deficits or any new symptoms. We will continue to monitor the patient closely. 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
[2020-06-10] MEDS ORDERED: fentaNYL 12 MCG PATCH.TD72 TD SCH (17:30)
[2020-06-10] MEDS ORDERED: ENOXAPARIN SODIUM 40 MG/0.4 ML SYRG SC ONE (18:48)
[2020-06-10] MEDS: CYCLOBENZAPRINE HCL 10 MG TABLET PO PRN (18:50)
[2020-06-10] MEDS: KETOROLAC TROMETHAMINE 30 MG/ML VIAL IV PRN (19:31)
[2020-06-10] MEDS ORDERED: ENOXAPARIN SODIUM 30 MG/0.3 ML SYRG SC SCH (20:00)
[2020-06-10] MEDS: CELECOXIB 100 MG CAPSULE PO SCH (20:06)
[2020-06-10] MEDS: GABAPENTIN 600 MG TABLET PO SCH (20:06)
[2020-06-10] MEDS ORDERED: SIMVASTATIN 20 MG TABLET PO SCH (21:00)
[2020-06-11] MEDS: KETOROLAC TROMETHAMINE 30 MG/ML VIAL IV PRN (02:18)
[2020-06-11] MEDS: CYCLOBENZAPRINE HCL 10 MG TABLET PO PRN (03:27)
[2020-06-11 06:58] LABS: Hematocrit 36.1 % (37.0-47.0); Hemoglobin 11.7 gm/dL (12.5-16.0); Mean Cell Volume 101.7 fl (78-100); Mean Corpuscular Hgb Conc 32.4 g/dl (32-36); Mean Platelet Volume 9.6 fl (8-12.5); Neutrophil # 3.1 K/mm3 (1.3-6.0); Neutrophil % 51.4 % (42-75.0); Platelet Count 174 K/mm3 (150-450); Red Blood Count 3.55 M/mm3 (4.2-5.4); Red Cell Distribution Width 13.4 % (11.5-14.0)
[2020-06-11] MEDS ORDERED: KETOROLAC TROMETHAMINE 15 MG/ML VIAL IV PRN (07:15)
[2020-06-11 07:17] LABS: Albumin * 3.7 gm/dl (3.4-5.0); Anion Gap 10.5 mmol/L (6.8-13.8); BUN/Creatinine Ratio 15.2 (9.0-21.6); Bilirubin, Total 0.6 mg/dL (0.0-1.1); Ca. Corrected For Albumin 9.2 mg/dL (8.4-10.2); Calcium * 9.3 mg/dL (7.9-10.9); Carbon Dioxide 28.4 mmol/L (24-32.6); Potassium 3.9 mmol/L (3.4-4.6); Total Protein 6.6 gm/dL (6.2-8.2)
[2020-06-11] MEDS: GABAPENTIN 600 MG TABLET PO SCH (08:02)
[2020-06-11] MEDS: CELECOXIB 100 MG CAPSULE PO SCH (08:03)
[2020-06-11] MEDS ORDERED: CALCIUM CARBONATE/VITAMIN D3 1 TAB TABLET PO SCH (09:00)
[2020-06-11] MEDS ORDERED: ENALAPRIL MALEATE 5 MG TABLET PO SCH (09:00)
[2020-06-11] MEDS ORDERED: AMIODARONE HCL 200 MG TABLET PO SCH (09:00)
[2020-06-11] MEDS ORDERED: ASPIRIN 81 MG TABLET.DR PO SCH (09:00)
--- NOTE | 2020-06-11 10:12 | DS ---
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 The patient had a favorable response to treatment with a muscle relaxant and low-dose NSAID. She reports her pain has improved significantly and right now she rates it at 3-4 out of 10 compared to the 9 or 10 out of 10 when she arrived. She is in her arm chair sleeping comfortably at the moment and is agreeable to go home. Labs this morning reveal a worsening of her renal function however this patient has a long history of chronic kidney disease which fluctuates. We also have to take into account that she was treated with NSAIDs during the hospitalization which might explain the drop in the GFR. She is not anuric and appears to be urinating adequate amounts of urine so we will discharge her with lab orders to be done in several days for reevaluation of renal function and with instructions to follow-up with her primary care doctor. The patient will also be provided with a prescription for the muscle relaxant but given her worsening renal function we will not send her home with the NSAIDs. She was told she will need a heating pad to apply to her back and recommendation to do the physical therapy does recommended by the specialist was made. Home health services was previously set up and the patient scheduled to be evaluated in her home on Saturday. Given the patient's high fall risk and advanced age, will avoid discharging with any opioids. Procedures Performed: none Results and Findings: Lab Pending Results 06/10/20 11:05: Urine Color Yellow, Urine Appearance Clear, Urine pH 7.0, Ur Specific [place] 1.020, Urine Protein 15 H, Urine Glucose (UA) Negative, Urine Ketones Negative, Urine Blood 5 H, Urine Nitrate Negative, Urine Bilirubin Negative, Prot Sulfosalicylic Acd 1+, Urine Urobilinogen Normal, Ur Leukocyte Esterase Negative, Urine RBC 0-5, Urine WBC None seen, Ur Epithelial Cells 0-5, Urine Bacteria None seen, Urine Culture Comments No culture indicated 06/10/20 12:27: WBC 6.4, RBC 3.66 L, Hgb 12.0 L, Hct 37.0, MCV 101.1 H, MCH 32.8 H, MCHC 32.4, RDW 13.4, Plt Count 179, MPV 10.3, Immature Gran % (Auto) 0.30, Immature Gran # (Auto) 0.02, Neutrophils % 67.6, Lymphocytes % 21.9, Monocytes % 9.9 H, Eosinophils % 0.0, Basophils % 0.3, Nucleated RBC % 0.0, Neutrophils # 4.3, Lymphocytes # 1.39 L, Monocytes # 0.6, Eosinophils # 0.0, Absolute Basophils 0.0 06/10/20 12:27: Sodium 138, Plasma Sodium 139, Potassium 4.3, Chloride 104, Carbon Dioxide 26.0, Anion Gap 12.3, BUN 13, Creatinine 1.02, Est GFR (Non-Af Amer) 55 L D, BUN/Creatinine Ratio 12.7, Random Glucose 138 H, Calcium 9.7, Calcium Adj for Albumin 9.4, Total Bilirubin 0.6, AST 21, ALT 25, Alkaline Phosphatase 69, Total Protein 7.0, Albumin 4.0 06/11/20 06:50: WBC 6.0, RBC 3.55 L, Hgb 11.7 L, Hct 36.1 L, MCV 101.7 H, MCH 33.0 H, MCHC 32.4, RDW 13.4, Plt Count 174, MPV 9.6, Immature Gran % (Auto) 0.20, Immature Gran # (Auto) 0.01, Neutrophils % 51.4, Lymphocytes % 35.3, Monocytes % 10.8 H, Eosinophils % 1.8, Basophils % 0.5, Nucleated RBC % 0.0, Neutrophils # 3.1, Lymphocytes # 2.13, Monocytes # 0.7, Eosinophils # 0.1, Absolute Basophils 0.0 06/11/20 06:50: Sodium 138, Plasma Sodium 138, Potassium 3.9, Chloride 103, Carbon Dioxide 28.4, Anion Gap 10.5, BUN 19, Creatinine 1.25, Est GFR (Non-Af Amer) 43 L D, BUN/Creatinine Ratio 15.2, Random Glucose 114 H, Calcium 9.3, Calcium Adj for Albumin 9.2, Total Bilirubin 0.6, AST 19, ALT 26, Alkaline Phosphatase 64, Total Protein 6.6, Albumin 3.7 Discharge Location: Home Disposition: Home self-care Condition: Fair Face to Face Encounter completed per [facility] Guidelines: No Discharge Activity: Activity as tolerated Discharge Diet: General/regular food Additional Patient Instructions (free text): [facility]- nursing and PT- fax discharge orders, medication list, and call report. Home health will be out to see you on Saturday. Prescriptions (Any new or edited meds): Cyclobenzaprine HCl [Flexeril] 7.5 mg PO TID PRN #90 tab PRN Reason: Muscle Spasm Transmission Status: Pending to [facility] Complete Home Medications List: Complete Home Medication List: Acetaminophen 325 mg PO 0900,1500,209904/29/19 Aspirin [Aspirin EC] 81 mg PO DAILY 06/29/19 Calcium Carb/Vit D3/Minerals [Calcium 600+D Plus Minerals Tb] 1 ea PO DAILY 06/29/19 Amiodarone HCl 200 mg PO DAILY 12/21/19 benazepril 5 mg tablet 5 mg PO DAILY tab 03/17/20 simvastatin 20 mg tablet 20 mg PO HS tab 03/17/20 celecoxib 100 mg capsule 100 mg PO BID #60 cap 05/26/20 Docusate Sodium [Colace] 200 mg PO BID PRN 06/10/20 Gabapentin 1,200 mg PO 0900,1500,2100 06/10/20 Cyclobenzaprine HCl [Flexeril] 7.5 mg PO TID PRN #90 tab 06/11/20 Forms: Patient Portal Registration
[2020-06-11 11:19] VITALS: BP 140/61
== END 2020-06-11 11:17 | disposition home or self-care (01) ==
LOC: MS 10:28 → ER 10:28 → MS 15:30
PROVIDERS: ADMIT Family Medicine; ATTEND Family Medicine
DX: E78.5 Hyperlipidemia, unspecified; M54.5 Low back pain; I10 Essential (primary) hypertension; I25.10 Atherosclerotic heart disease of native coronary artery without angina pectoris; M41.87 Other forms of scoliosis, lumbosacral region; I48.91 Unspecified atrial fibrillation

== ENCOUNTER 2020-06-28 12:28 | Observation (INO) ==
[2020-06-28] MEDS ORDERED: MORPHINE SULFATE 2 MG/ML DISP.SYRIN IV ONE (13:33)
[2020-06-28 13:34] LABS: Hematocrit 34.1 % (37.0-47.0); Hemoglobin 11.1 gm/dL (12.5-16.0); Mean Cell Volume 99.7 fl (78-100); Mean Corpuscular Hemoglobin 32.5 pg (27-31); Mean Corpuscular Hgb Conc 32.6 g/dl (32-36); Mean Platelet Volume 9.6 fl (8-12.5); Neutrophil # 4.4 K/mm3 (1.3-6.0); Neutrophil % 68.8 % (42-75.0); Platelet Count 191 K/mm3 (150-450); Red Blood Count 3.42 M/mm3 (4.2-5.4); Red Cell Distribution Width 13.1 % (11.5-14.0); White Blood Count 6.4 K/mm3 (4.0-10.5)
[2020-06-28 13:49] LABS: Albumin * 3.6 gm/dl (3.4-5.0); Anion Gap 14.8 mmol/L (6.8-13.8); BUN/Creatinine Ratio 12.1 (9.0-21.6); Bilirubin, Total 0.7 mg/dL (0.0-1.1); Ca. Corrected For Albumin 9.6 mg/dL (8.4-10.2); Calcium * 9.6 mg/dL (7.9-10.9); Potassium 3.8 mmol/L (3.4-4.6); Total Protein 6.6 gm/dL (6.2-8.2)
[2020-06-28 14:44] LABS: Urine Appearance Clear (CLEAR); Urine Bacteria None Seen; Urine Bilirubin Negative (NEGATIVE); Urine Blood Negative /ul (NEGATIVE); Urine Color Yellow; Urine Ketone Negative (NEGATIVE); Urine Nitrite Negative (NEGATIVE); Urine Protein Negative (NEGATIVE); Urine RBC None Seen /hpf (0-5); Urine Specific Gravity 1.015 SP.GR. (1.005-1.010); Urine Urobilinogen Normal (NORMAL); Urine WBC None Seen /hpf (0-5); Urine pH 8.5 pH (5.0-7.0)
--- NOTE | 2020-06-28 15:04 | ERNOTE ---
Medical Problem HPI - Narrative Date of Service: 06/28/20 - General Chief Complaint: General Assessment Time Seen by Provider: 06/28/20 12:49 Source: patient, family, RN notes reviewed, old records Exam Limitations: clinical condition - Immun/Allergies/Home Medications Immunizations: IMMUNIZATION HX Immunizations Up to Date Yes History of Influenza Vaccine More Information Required Hx Pneumococcal Vaccination Yes Allergies/Adverse Reactions: Allergies lidocaine Allergy (Verified 06/28/20 15:14) Home Medications: HOME MEDICATIONS Acetaminophen 325 mg PO 0900,1500,2100 04/29/19 [Last Taken 04/29/19 15:00] Aspirin [Aspirin EC] 81 mg PO DAILY 06/29/19 [Last Taken Unknown] Calcium Carb/Vit D3/Minerals [Calcium 600+D Plus Minerals Tb] 1 ea PO DAILY 06/29/19 [Last Taken Unknown] Amiodarone HCl 200 mg PO DAILY 12/21/19 [Last Taken Unknown] simvastatin 20 mg tablet 20 mg PO HS tab 03/17/20 [Last Taken Unknown] - History of Present History Narrative: Heavenly is an 84-year-old female brought to the emergency department from home by her daughter for rib pain. She told her daughter that she woke up at 4:00 this morning with pain in her left lower anterior ribs. She also had a headache and felt sick at that time. She denies any injury. She is also reporting pain in her right upper arm. She has bruising to the arm that her daughter reports began when she was in the hospital 3 weeks ago. She was hospitalized for intractable back pain. She was then seen for follow-up by Dr. Pena a week ago. Her family was concerned about the amount of falls she was having at home and some of her medications ( gabapentin, Cymbalta, Celebrex) were stopped or are being tapered down. Her family has been staying with her in the daytime but she is alone at night. The patient states that she has not had any falls in the last few days, but her daughter reports that she seems more confused than normal. The daughter also reports that the patient's breathing has been rapid and shallow throughout the morning. Review of Systems - Narrative Narrative: Unable to obtain complete ROS d/t confusion Medical History (Last Updated 06/28/20 @ 16:30 by Lupe Hooks NP) Pacemaker Atrial fibrillation Coronary artery disease Hyperlipidemia Hypertension Surgical History: Surgical History (Last Reviewed 06/28/20 @ 16:30 by Lupe Hooks NP) History of heart artery stent Family History: Family History (Last Reviewed 06/28/20 @ 16:30 by Lupe Hooks NP) Mother Dementia Son Social History: (Last Reviewed 06/28/20 @ 16:30 by Lupe Hooks NP) Social History: adopted: No foster care: No group home: No lives independently: Yes household members: none caregiver/support person: No current occupational status: retired Highest education level completed: high school graduate Service: No Tobacco: Smoking Status: Never smoker Alcohol: alcohol intake: never Substance Use: substance use type: does not use Dietary Habits: caffeine: Yes Physical Exam - Physical Exam General Appearance: Present: wd/wn, alert, moderate distress Head Exam: Present: normal inspection, no evidence of injury Eye Exam: Normal inspection: bilateral, PERRL: bilateral Ears, Nose, Throat: Present: normal ENT inspection, normal pharynx Neck: Present: normal inspection, nontender, supple. Absent: tender lateral, tender posterior midline Respiratory: Present: no respiratory distress, normal breath sounds, no accessory muscle use, lungs clear, chest tenderness - Left lower anterior ribs Cardiovascular/Chest: Present: regular rate, rhythm, normal peripheral pulses Gastrointestinal/Abdominal: Present: nontender, nondistended, soft Extremity Exam: Present: no edema, decreased range of motion - Right arm, marked ecchymosis present to upper arm, bony tenderness - Right humerus Neurological Exam: Present: alert, no motor/sensory deficits. Absent: oriented, normal mood/affect Skin Exam: Present: normal color, warm/dry Progress - Results and Orders Patient's Lab Results:: I have reviewed the patient's lab results. - Vital Signs Patient's Vital Signs:: I have reviewed the patient's vital signs. Vital Signs: Vital Signs 06/28/20 12:40 06/28/20 13:28 Temperature 36.6 C Pulse Rate 70 60 Respiratory Rate 16 18 Blood Pressure 176/74 H O2 Sat by Pulse Oximetry 99 - X-Ray X-Ray #1 X-Ray: chest Interpretation: Reviewed by me X-ray Comments: No acute cardiopulmonary findings X-Ray #2 X-Ray: humerus - Right Interpretation: Reviewed by me X-ray Comments: No acute osseous findings - CT/Ultrasound CT/Ultrasound Narrative: Head CT: Findings: Exam shows subdural hematoma along the anterior aspect of the tentorium on the left involving the medial left temporal lobe. This measures approximately 1.8 cm along the tentorium measuring approximate 7 mm in its greatest thickness. There is little mass effect. Patient has underlying age related atrophy and White matter microvascular ischemic disease. No other intracranial hemorrhage identified. There is no midline shift. No skull fractures identified. Visualized paranasal sinuses and mastoid air cells appear adequately aerated. IMPRESSION: SUBDURAL HEMATOMA ALONG THE TENTORIUM ON THE LEFT DISCUSSED. NO SIGNIFICANT MASS EFFECT GIVEN UNDERLYING AGE RELATED ATROPHY AND WHITE MATTER MICROVASCULAR ISCHEMIC DISEASE. FINDINGS TELEPHONED TO THE EMERGENCY ROOM PERSONNEL AT 1429 HOURS. Electronically signed by Mehdi Villatoro M.D.. - Progress/Reassessment Chief Complaint: General Assessment Progress:: Unchanged Plan - Plan Plan: CT scan shows a small subdural hematoma. I discussed this with the patient and her daughter. The daughter suspects that the patient fell during the night and does not remember it, which is also probably the cause of her pain in her left anterior ribs. We discussed transfer to the [facility] for neurosurgical services if needed but the patient and the daughter do not wish to do this. The patient does not want to have any kind of aggressive intervention and would just like to be kept comfortable. I contacted Dr. Pena and the patient will be admitted to observation status. Departure Clinical Impression: Subdural hematoma, acute Altered mental status Qualifiers: Altered mental status type: disorientation Qualified Code(s): R41.0 - Disorientation, unspecified - Departure Disposition: Still a patient Condition: Stable
--- NOTE | 2020-06-28 16:42 | HP ---
Chief Complaint - Chief Complaint Date of Service: 06/28/20 Time of Service: 16:08 Chief Complaint: Confusion day History of Present Illness: 84-year-old female with a past medical history of atrial fibrillation, hypertension, hyperlipidemia, coronary artery disease presents from home with confusion. Her daughter states she she was brought to the emergency department and found to have head CT and is positive for subdural hematoma along the tentorium of the left approximately 7 mm in greatest thickness, no significant mass-effect. The patient and family stated they do not want any aggressive measures and wanted to just keep the patient comfortable. She is being admitted for observation. Medical History (Last Reviewed 06/28/20 @ 15:14 by Sadie Vasquez RN) Pacemaker Atrial fibrillation Coronary artery disease Hyperlipidemia Hypertension Surgical History: Surgical History (Last Reviewed 06/28/20 @ 15:14 by Sadie Vasquez RN) History of heart artery stent Family History: Family History (Last Reviewed 06/28/20 @ 15:14 by Sadie Vasquez RN) Mother Dementia Son Social History: (Last Reviewed 06/28/20 @ 16:30 by Lupe Hooks NP) Social History: adopted: No foster care: No long term: No lives independently: Yes household members: none caregiver/support person: No current occupational status: retired Highest education level completed: high school graduate Service: No Tobacco: Smoking Status: Never smoker Alcohol: alcohol intake: never Substance Use: substance use type: does not use Dietary Habits: caffeine: Yes Review Of Systems (GEN) - Review of Systems Generalized/Overall Review: Absent: Fever Respiratory: Absent: Shortness of Breath Cardiac: Absent: Chest Pain Abdominal: Absent: Abdominal Pain Musculoskeletal: Present: Back Pain Misc: All systems neg except as marked Immunizations: IMMUNIZATION HX Immunizations Up to Date Yes History of Influenza Vaccine More Information Required Hx Pneumococcal Vaccination Yes Allergies/Adverse Reactions: Allergies Allergy/AdvReac Type Severity Reaction Status Date / Time lidocaine Allergy Verified 06/28/20 15:14 Home Medications: HOME MEDICATIONS Acetaminophen 325 mg PO 0900,1500,2100 04/29/19 [Last Taken 04/29/19 15:00] Aspirin [Aspirin EC] 81 mg PO DAILY 06/29/19 [Last Taken Unknown] Calcium Carb/Vit D3/Minerals [Calcium 600+D Plus Minerals Tb] 1 ea PO DAILY 06/29/19 [Last Taken Unknown] Amiodarone HCl 200 mg PO DAILY 12/21/19 [Last Taken Unknown] simvastatin 20 mg tablet 20 mg PO HS tab 03/17/20 [Last Taken Unknown] Exam - Exam Vital Signs: Vital Signs - Last Taken Temp 36.6 C 06/28/20 12:40 Pulse 60 06/28/20 15:45 Resp 18 06/28/20 13:28 BP 176/74 H 06/28/20 12:40 Pulse Ox 98 06/28/20 15:45 Constitutional: Present: Alert, Oriented x3, Cooperative, Well developed, Well nourished, No distress, Elderly ENT Exam: Present: hearing grossly normal Eye Exam: bilateral eye: normal inspection, PERRL, EOMI Neck: Present: non-tender, supple. Absent: lymphadenopathy (R), lymphadenopathy (L) Back Exam: Present: normal inspection, no CVA tenderness, no vertebral tenderness Respiratory: Present: lungs clear, no respiratory distress, no accessory muscle use, No wheezing. Absent: crackles, rhonchi Cardiovascular/Chest: Present: normal peripheral pulses, regular rate, rhythm, no edema, no murmur Peripheral Pulses: dorsalis-pedis (R): 1+, dorsalis-pedis (L): 1+ Abdomen: Present: Normal bowel sounds, soft, nontender Extremity: Present: no pedal edema Skin Exam: Present: normal color, warm/dry Neurologic: Present: split and drum room supervisor II-XII nml as tested, alert, normal mood/affect Appearance: Present: appropriate appearance Eye contact: Present: cooperative Thoughts: Present: normal thought pattern, normal mood /affect Diagnostic Studies: Abnormal Lab Results 06/28/20 06/28/20 Range/Units 13:30 13:30 RBC 3.42 L (4.2-5.4) M/mm3 Hgb 11.1 L (12.5-16.0) gm/dL Hct 34.1 L (37.0-47.0) % MCH 32.5 H (27-31) pg Lymphocytes # 1.40 L (1.5-3.5) k/mm3 Anion Gap 14.8 H (6.8-13.8) mmol/L Random Glucose 118 H (70-110) mg/dL Laboratory Results WBC 6.4 K/mm3 (4.0-10.5) 06/28/20 13:30 RBC 3.42 M/mm3 (4.2-5.4) L 06/28/20 13:30 Hgb 11.1 gm/dL (12.5-16.0) L 06/28/20 13:30 Hct 34.1 % (37.0-47.0) L 06/28/20 13:30 MCV 99.7 fl (78-100) 06/28/20 13:30 MCH 32.5 pg (27-31) H 06/28/20 13:30 MCHC 32.6 g/dl (32-36) 06/28/20 13: RDW 13.1 % (11.5-14.0) 06/28/20 13:30 Plt Count 191 K/mm3 (150-450) 06/28/20 13: MPV 9.6 fl (8-12.5) 06/28/20 13:30 Immature Gran % (Auto) 0.20 % (0.001-0.429) 06/28/20 13: Immature Gran # (Auto) 0.01 K/mm3 (0.000-0.0310) 06/28/20 13:30 Neutrophils % 68.8 % (42-75.0) 06/28/20 13:30 Lymphocytes % 21.9 % (20-51) 06/28/20 13: Monocytes % 8.8 % (0.0-9) 06/28/20 13:30 Eosinophils % 0.0 % (0.0-3.0) 06/28/20 13: Basophils % 0.3 % (0.0-1.0) 06/28/20 13:30 Nucleated RBC % 0.0 k/mm3 (0-1) 06/28/20 13:30 Neutrophils # 4.4 K/mm3 (1.3-6.0) 06/28/20 13:30 Lymphocytes # 1.40 k/mm3 (1.5-3.5) L 06/28/20 13:30 Monocytes # 0.6 k/mm3 (0.0-1.0) 06/28/20 13:30 Eosinophils # 0.0 k/mm3 (0.0-0.7) 06/28/20 13:30 Absolute Basophils 0.0 k/mm3 (0.0-0.1) 06/28/20 13:30 Sodium 137 mmol/L (132-142) 06/28/20 13:30 Plasma Sodium 137 mmol/L (130-142) 06/28/20 13:30 Potassium 3.8 mmol/L (3.4-4.6) 06/28/20 13:30 Chloride 101 mmol/L (97-106) 06/28/20 13:30 Carbon Dioxide 25.0 mmol/L (24-32.6) 06/28/20 13:30 Anion Gap 14.8 mmol/L (6.8-13.8) H 06/28/20 13:30 BUN 11 mg/dL (3-23) 06/28/20 13:30 Creatinine 0.91 mg/dL (0.4-1.4) 06/28/20 13:30 Est GFR (Non-Af Amer) 62 mL/min (60-130) D 06/28/20 13:30 BUN/Creatinine Ratio 12.1 (9.0-21.6) 06/28/20 13:30 Random Glucose 118 mg/dL (70-110) H 06/28/20 13:30 Lactic Acid, Venous 1.3 mmol/L (0.4-2.0) 06/28/20 13:30 Calcium 9.6 mg/dL (7.9-10.9) 06/28/20 13:30 Calcium Adj for Albumin 9.6 mg/dL (8.4-10.2) 06/28/20 13:30 Total Bilirubin 0.7 mg/dL (0.0-1.1) 06/28/20 13:30 AST 18 U/L (0-48) 06/28/20 13:30 ALT 20 U/L (19-67) 06/28/20 13:30 Alkaline Phosphatase 86 U/L (50-170) 06/28/20 13:30 Total Protein 6.6 gm/dL (6.2-8.2) 06/28/20 13:30 Albumin 3.6 gm/dl (3.4-5.0) 06/28/20 13:30 Urine Color Yellow 06/28/20 14:18 Urine Appearance Clear (CLEAR) 06/28/20 14:18 Urine pH 8.5 pH (5.0-7.0) 06/28/20 14:18 Ur Specific [place] 1.015 SP.GR. (1.005-1.010) 06/28/20 14:18 Urine Protein Negative mg/dL (NEGATIVE) 06/28/20 14:18 Urine Glucose (UA) Negative mg/dL (NEGATIVE) 06/28/20 14:18 Urine Ketones Negative mg/dL (NEGATIVE) 06/28/20 14:18 Urine Blood Negative /ul (NEGATIVE) 06/28/20 14:18 Urine Nitrate Negative (NEGATIVE) 06/28/20 14:18 Urine Bilirubin Negative mg/dl (NEGATIVE) 06/28/20 14:18 Urine Urobilinogen Normal EU/dl (NORMAL) 06/28/20 14:18 Ur Leukocyte Esterase Negative /ul (NEGATIVE) 06/28/20 14:18 Urine RBC None seen /hpf (0-5) 06/28/20 14:18 Urine WBC None seen /hpf (0-5) 06/28/20 14:18 Ur Epithelial Cells 0-5 /hpf (0-5) 06/28/20 14:18 Urine Bacteria None seen (NONE) 06/28/20 14:18 Urine Culture Comments No culture indicated 06/28/20 14:18 Assessment/Plan - Narrative Narrative: 84-year-old female with a past medical history of atrial fibrillation, hypertension, hyperlipidemia, coronary artery disease presents from home with confusion. Her daughter states she she was brought to the emergency department and found to have head CT and is positive for subdural hematoma along the tentorium of the left approximately 7 mm in greatest thickness, no significant mass-effect. The patient and family stated they do not want any aggressive measures and wanted to just keep the patient comfortable. She is being admitted for observation. Neurologically she does not have any deficits at this time and she is alert and oriented. She will be admitted for observation and we will attempt to discharge her tomorrow to a long term on hospice. Plan #1 comfort measures #2 start lisinopril and amlodipine for her blood pressure #3 regular diet #4 disposition planning to long term with hospice - Assessment/Plan (1) Comfort measures only status Problem: Acute (2) Subdural hematoma Problem: Acute (3) Hypertension Problem: Acute Qualifiers: Hypertension type: essential hypertension (4) Atrial fibrillation Problem: Chronic (5) Chronic low back pain Problem: Acute (6) Hyperlipidemia Problem: Chronic
[2020-06-28] MEDS: amLODIPine BESYLATE 5 MG TABLET PO SCH (17:26)
[2020-06-28] MEDS: LISINOPRIL 20 MG TABLET PO SCH (17:26)
[2020-06-28] MEDS: ACETAMINOPHEN 500 MG TABLET PO PRN (18:36)
[2020-06-28] MEDS: KETOROLAC TROMETHAMINE 30 MG/ML VIAL IV PRN (20:40)
[2020-06-28] MEDS: MELATONIN 3,000 MCG TABLET PO SCH (20:41)
[2020-06-28] MEDS: MORPHINE SULFATE 4 MG/ML SYRG IV PRN (22:15)
[2020-06-29] MEDS: LISINOPRIL 20 MG TABLET PO SCH (08:21)
[2020-06-29] MEDS: amLODIPine BESYLATE 5 MG TABLET PO SCH (08:21)
[2020-06-29] MEDS: ACETAMINOPHEN 500 MG TABLET PO PRN (10:51)
[2020-06-29] MEDS: KETOROLAC TROMETHAMINE 30 MG/ML VIAL IV PRN (10:52)
[2020-06-29] MEDS: MORPHINE SULFATE 4 MG/ML SYRG IV PRN (11:51)
--- NOTE | 2020-06-29 14:32 | PN ---
Subjective - Date and Time Seen Date: 06/29/20 Time: 09:47 Subjective Narrative: She feels well today. Back pain is improved. She is tolerating her diet. Any headache, chest pain or shortness of breath. Objective - Review of Systems Generalized/Overall Review: Denies: Chills, Fever Respiratory: Denies: Shortness of Breath Cardiac: Denies: Chest Pain Abdominal: Denies: Abdominal Pain Misc: All systems neg except as marked - Vitals Vitals: Last Vital Signs Temp 36.6 C 06/29/20 07:11 Pulse 60 06/29/20 08:21 Resp 18 06/29/20 07:11 BP 179/72 H 06/29/20 08:21 Pulse Ox 98 06/29/20 07:11 - Exam Constitutional: Present: Alert, Cooperative, Well developed, Well nourished, No distress, Elderly ENT Exam: Present: hearing grossly normal Neck: Present: supple. Absent: lymphadenopathy (R), lymphadenopathy (L) Respiratory: Present: lungs clear, no respiratory distress, no accessory muscle use, No wheezing. Absent: crackles, rhonchi Cardiovascular/Chest: Present: normal peripheral pulses, regular rate, rhythm, no edema, no murmur Abdomen: Present: Normal bowel sounds, soft, nontender Extremity: Present: normal range of motion, no pedal edema Skin Exam: Present: normal color, warm/dry Neurologic: Present: alert, normal mood/affect Appearance: Present: appropriate appearance Eye contact: Present: cooperative Thoughts: Present: normal thought pattern, normal mood /affect Assessment/Plan Plan Narrative: 84-year-old female with a past medical history of atrial fibrillation, hypertension, hyperlipidemia, coronary artery disease presents from home with confusion. Her daughter states she she was brought to the emergency department and found to have head CT and is positive for subdural hematoma along the tentorium of the left approximately 7 mm in greatest thickness, no significant mass-effect. The patient and family stated they do not want any aggressive measures and wanted to just keep the patient comfortable. She is being admitted for observation. Hospice has declined to take her because she does not meet criteria for admission. Family continues to want her to go to a usp. She will be discharged tomorrow to [facility]. Plan #1 comfort measures #2 start lisinopril and amlodipine for her blood pressure #3 regular diet #4 disposition planning to usp #5 start tramadol 50 mg every 6 hours as needed pain - Problems/Diagnosis (1) Comfort measures only status Problem: Acute (2) Subdural hematoma Problem: Acute (3) Hypertension Problem: Acute Qualifiers: Hypertension type: essential hypertension Qualified Code(s): I10 - Essential (primary) hypertension (4) Atrial fibrillation Problem: Chronic (5) Chronic low back pain Problem: Acute (6) Hyperlipidemia Problem: Chronic
[2020-06-29] MEDS ORDERED: traMADol HCL 50 MG TABLET PO PRN (14:34)
[2020-06-29] MEDS ORDERED: traMADol HCL 50 MG TABLET PO SCH (14:45)
[2020-06-29] MEDS: AMIODARONE HCL 200 MG TABLET PO SCH (15:00)
[2020-06-29] MEDS: ACETAMINOPHEN 325 MG TABLET PO SCH ×2 (15:02→20:07)
[2020-06-29] MEDS: MELATONIN 3,000 MCG TABLET PO SCH (20:07)
[2020-06-29] MEDS ORDERED: SIMVASTATIN 20 MG TABLET PO SCH (21:00)
[2020-06-30] MEDS: MORPHINE SULFATE 4 MG/ML SYRG IV PRN (07:17)
[2020-06-30] MEDS: ACETAMINOPHEN 325 MG TABLET PO SCH (08:53)
[2020-06-30] MEDS: amLODIPine BESYLATE 5 MG TABLET PO SCH (08:53)
[2020-06-30] MEDS: AMIODARONE HCL 200 MG TABLET PO SCH (08:54)
[2020-06-30] MEDS: LISINOPRIL 20 MG TABLET PO SCH (08:54)
[2020-06-30] MEDS ORDERED: ASPIRIN 81 MG TABLET.DR PO SCH (09:00)
[2020-06-30] MEDS ORDERED: CALCIUM CARBONATE/VITAMIN D3 1 TAB TABLET PO SCH (09:00)
[2020-06-30] MEDS ORDERED: MORPHINE SULFATE 2 MG/ML DISP.SYRIN IV PRN (10:15)
--- NOTE | 2020-06-30 10:20 | DS ---
(1) Comfort measures only status Problem: Acute (2) Hypertensive urgency Problem: Acute (3) Subdural hematoma Problem: Acute (4) Atrial fibrillation Problem: Chronic (5) Chronic low back pain Problem: Acute (6) Hyperlipidemia Problem: Chronic (7) Hypertension Problem: Acute Qualifiers: Hypertension type: essential hypertension Qualified Code(s): I10 - Essential (primary) hypertension Hospital Course: 84-year-old female with a past medical history of atrial fibrillation, hypertension, hyperlipidemia, coronary artery disease presents from home with confusion. Her daughter states she she was brought to the emergency department and found to have head CT and is positive for subdural hematoma along the tentorium of the left approximately 7 mm in greatest thickness, no significant mass-effect. The patient and family stated they do not want any aggressive measures and wanted to just keep the patient comfortable. She is being admitted for observation. Hospice has declined to take her because she does not meet criteria for admission. Family continues to want her to go to a senior living. Her blood pressure was significantly elevated on admission. She was started on lisinopril and amlodipine with improvement in her blood pressure. She is stable to be discharged today to [facility]. Procedures Performed: none Results and Findings: Lab Pending Results 06/28/20 13:30: WBC 6.4, RBC 3.42 L, Hgb 11.1 L, Hct 34.1 L, MCV 99.7, MCH 32.5 H, MCHC 32.6, RDW 13.1, Plt Count 191, MPV 9.6, Immature Gran % (Auto) 0.20, Immature Gran # (Auto) 0.01, Neutrophils % 68.8, Lymphocytes % 21.9, Monocytes % 8.8, Eosinophils % 0.0, Basophils % 0.3, Nucleated RBC % 0.0, Neutrophils # 4.4, Lymphocytes # 1.40 L, Monocytes # 0.6, Eosinophils # 0.0, Absolute Basophils 0.0 06/28/20 13:30: Sodium 137, Plasma Sodium 137, Potassium 3.8, Chloride 101, Carbon Dioxide 25.0, Anion Gap 14.8 H, BUN 11, Creatinine 0.91, Est GFR (Non-Af Amer) 62 D, BUN/Creatinine Ratio 12.1, Random Glucose 118 H, Calcium 9.6, Calcium Adj for Albumin 9.6, Total Bilirubin 0.7, AST 18, ALT 20, Alkaline Phosphatase 86, Total Protein 6.6, Albumin 3.6 06/28/20 13:30: Lactic Acid, Venous 1.3 06/28/20 14:18: Urine Color Yellow, Urine Appearance Clear, Urine pH 8.5, Ur Specific [place] 1.015, Urine Protein Negative, Urine Glucose (UA) Negative, Urine Ketones Negative, Urine Blood Negative, Urine Nitrate Negative, Urine Bilirubin Negative, Urine Urobilinogen Normal, Ur Leukocyte Esterase Negative, Urine RBC None seen, Urine WBC None seen, Ur Epithelial Cells 0-5, Urine Bacteria None seen, Urine Culture Comments No culture indicated Discharge Location: [facility] Disposition: SNF Condition: Stable Level of Care: SNF Discharge Activity: Activity as tolerated Discharge Diet: General/regular food Long Term Therapy: Physical Therapy, Occupation Therapy, Speech Therapy Referrals: Rafaela Pena MD [Primary Care Provider] - Additional Patient Instructions (free text): [facility] SNF at discharge- PT, OT, and Speech therapy. Follow up appointment with in 7-10 days. Prescriptions (Any new or edited meds): Melatonin 3,000 mcg PO HS #30 tab Transmission Status: Pending to [facility] amLODIPine BESYLATE [Norvasc] 5 mg PO DAILY #30 tab Transmission Status: Pending to [facility] traMADol HCL [Ultram] 50 mg PO BID PRN #60 tab PRN Reason: Pain Transmission Status: Sent to [facility] Lisinopril [Zestril] 20 mg PO DAILY #30 tab Transmission Status: Pending to [facility] Complete Home Medications List: Complete Home Medication List: Acetaminophen 325 mg PO 0900,1500,2100 04/29/19 Aspirin [Aspirin EC] 81 mg PO DAILY 06/29/19 Calcium Carb/Vit D3/Minerals [Calcium 600+D Plus Minerals Tb] 1 ea PO DAILY 06/29/19 Amiodarone HCl 200 mg PO DAILY 12/21/19 simvastatin 20 mg tablet 20 mg PO HS tab 03/17/20 Lisinopril [Zestril] 20 mg PO DAILY #30 tab 06/30/20 Melatonin 3,000 mcg PO HS #30 tab 06/30/20 amLODIPine BESYLATE [Norvasc] 5 mg PO DAILY #30 tab 06/30/20 traMADol HCL [Ultram] 50 mg PO BID PRN #60 tab 06/30/20
[2020-06-30 12:52] VITALS: BP 121/44
== END 2020-06-30 13:00 ==
LOC: ER 12:28 → MS 12:28
PROVIDERS: ADMIT Internal Medicine; ATTEND Internal Medicine

== ENCOUNTER 2020-07-09 13:02 | Observation (INO) ==
[2020-07-09] MEDS ORDERED: NORMAL SALINE 1,000 ML IV ONE (13:23)
[2020-07-09 13:37] LABS: Hematocrit 44.7 % (37.0-47.0); Hemoglobin 14.5 gm/dL (12.5-16.0); Mean Corpuscular Hemoglobin 32.4 pg (27-31); Mean Corpuscular Hgb Conc 32.4 g/dl (32-36); Neutrophil # 9.9 K/mm3 (1.3-6.0); Neutrophil % 80.7 % (42-75.0); Platelet Count 221 K/mm3 (150-450); Red Blood Count 4.47 M/mm3 (4.2-5.4); Red Cell Distribution Width 12.8 % (11.5-14.0); White Blood Count 12.2 K/mm3 (4.0-10.5)
[2020-07-09 13:46] LABS: Prothrombin Time (Patient) 11.6 Seconds (9.1-10.7)
[2020-07-09 13:55] LABS: Albumin * 4.1 gm/dl (3.4-5.0); BUN/Creatinine Ratio 21.1 (9.0-21.6); Ca. Corrected For Albumin 9.8 mg/dL (8.4-10.2); Calcium * 10.2 mg/dL (7.9-10.9); Magnesium 2.6 mg/dL (1.2-2.8); Total Protein 7.1 gm/dL (6.2-8.2); Troponin I 0.033 ng/mL (0.00-0.10)
[2020-07-09 13:59] LABS: INR 1.18 INR (0.92-1.08)
[2020-07-09 14:00] LABS: Partial Thrombolplastin Time 22.4 Seconds (24-32)
--- NOTE | 2020-07-09 15:23 | ERNOTE ---
Syncope ER HPI Date of Service: 07/09/20 Stated Complaint: sick Time Seen by Provider: 07/09/20 13:13 Source: patient, family, EMS Exam Limitations: no limitations Immunizations: IMMUNIZATION HX Immunizations Up to Date Yes History of Influenza Vaccine Yes Hx Pneumococcal Vaccination Yes Allergies/Adverse Reactions: Allergies lidocaine Allergy (Verified 07/09/20 13:54) Home Medications: HOME MEDICATIONS Acetaminophen 325 mg PO 0900,1500,2100 04/29/19 [Last Taken 04/29/19 15:00] Aspirin [Aspirin EC] 81 mg PO DAILY 06/29/19 [Last Taken Unknown] Amiodarone HCl 200 mg PO DAILY 12/21/19 [Last Taken Unknown] simvastatin 20 mg tablet 20 mg PO HS tab 03/17/20 [Last Taken Unknown] Lisinopril [Zestril] 20 mg PO DAILY #30 tab 06/30/20 [Last Taken Unknown] amLODIPine BESYLATE [Norvasc] 5 mg PO DAILY #30 tab 06/30/20 [Last Taken Unknow n] calcium carbonate-vitamin D3 600 mg (1,500 mg)-800 unit tablet 1 tab PO DAILY 07/08/20 [Last Taken Unknown] melatonin 3 mg tablet 3 mg PO HS tab 07/08/20 [Last Taken Unknown] tramadol 50 mg tablet 50 mg PO DAILY #30 tab 07/08/20 [Last Taken Unknown] tramadol 50 mg tablet 50 mg PO QPM PRN #30 tab 07/08/20 [Last Taken Unknown] - History of Present Illness Narrative: Patient presents to the ED for evaluation from the halfway. She apparently had unconscious episode on the toilet. Does not remember it. No clear had injury but unknown. She has abdominal pain and has apparently had severe diarrhea this afternoon. Nursing notes severe diarrhea here and some blood in the diarrhea but not gross blood. She states only pain is abdominal pain. G eneralized weakness, no acute unilateral focal weakness. No CP or SOB. Prior Episodes: Present: single episode today Symptoms prior to episode: Present: other - she does not recall Activity at time of episode: Present: sitting Character of event: Absent: seizure activity observed Location of Injury: Present: none Current Symptoms: Absent: chest pain, shortness of breath Prior Treament: Reports: recently seen. Denies: similar symptoms before Review of Systems - Review of Systems Constitutional: Absent: fever EYE: Absent: eye pain ENT: Absent: sore throat Respiratory: Absent: shortness of breath Cardiology: Absent: chest pain Gastrointestinal/Abdominal: Present: abdominal pain Genitourinary: Absent: dysuria Musculoskeletal: Present: no symptoms reported Skin: Present: no symptoms reported Neurological: Absent: weakness All Other Systems: All systems neg except as marked Medical History (Last Reviewed 07/09/20 @ 15:11 by Mehdi El MD) Atrial fibrillation Pacemaker Coronary artery disease Hyperlipidemia Hypertension Surgical History: Surgical History (Last Reviewed 07/09/20 @ 15:11 by Mehdi El MD) History of carpal tunnel surgery History of hysterectomy Hx of appendectomy History of heart artery stent Family History: Family History (Last Reviewed 07/09/20 @ 15:11 by Mehdi El MD) Mother Dementia Son Father Myocardial infarction Social History: (Last Reviewed 07/09/20 @ 15:11 by Mehdi El MD) Social History: adopted: No foster care: No halfway: No lives independently: Yes household members: none caregiver/support person: No current occupational status: retired Highest education level completed: high school graduate Service: No Tobacco: Smoking Status: Never smoker Alcohol: alcohol intake: never Substance Use: substance use type: does not use Dietary Habits: caffeine: Yes Physical Exam - Physical Exam General Appearance: Present: alert, other - generalized weakness. Head Exam: Present: normal inspection, no evidence of injury Eye Exam: Normal inspection: bilateral, PERRL: bilateral Ears, Nose, Throat: Present: normal ENT inspection Neck: Present: normal inspection Respiratory: Present: no respiratory distress, normal breath sounds, no accessory muscle use, lungs clear Cardiovascular/Chest: Present: regular rate, rhythm, normal peripheral pulses Gastrointestinal/Abdominal: Present: normal bowel sounds, soft, other - diffuse abdominal tendenress to palpation, moderate, no clear mass, no peritoneal signs Back Exam: Present: no vertebral tenderness Extremity Exam: Present: other - no deformity Neurological Exam: Present: alert, other - generalized weakness, no acute unilateral focal weakness noted. Skin Exam: Present: normal color, warm/dry Progress - Results and Orders Patient's Lab Results:: I have reviewed the patient's lab results. - Vital Signs Patient's Vital Signs:: I have reviewed the patient's vital signs. Vital Signs: Vital Signs 07/09/20 13:03 07/09/20 13:30 07/09/20 13:34 Temperature 35.6 C L Pulse Rate 61 62 64 Respiratory Rate 38 H 25 H Blood Pressure 98/45 107/43 95/43 O2 Sat by Pulse Oximetry 98 97 99 07/09/20 14:13 07/09/20 14:31 07/09/20 14:54 Temperature Pulse Rate 70 74 78 Respiratory Rate 39 H 24 H 27 H Blood Pressure 177/65 H 152/56 H 129/41 O2 Sat by Pulse Oximetry 100 100 100 - EKG EKG #1 EKG read: Interp. by co EKG Comments: Paced. RBBB Non-specific ST/T wave changes, no clear evidence of STEMI noted. ST depressions more pronounced. - X-Ray X-Ray #1 X-Ray: chest Interpretation: Interp. by co X-ray Comments: I personally reviewed CXR image as well as official radiology report - CT/Ultrasound CT/Ultrasound Narrative: I personally reviewed official radiology reports for CT Head and ABD/Pelvis - Progress/Reassessment Chief Complaint: Syncopal Episode Progress Note-Subjective: 07/09/20 15:14 Hypotension resolved with IV fludis. Diarrhea on-going. No worsening of subdural. With her syncope and hypotension that was prolonged will admit. Repeat trop given her EKG changes which may have been due to hypotension. Given these concerns she will be observed in the hospital. Patient and her son are agreeable. I spoke with Dr Vega who will admit. Departure Clinical Impression: Syncope, Hypotension, Abdominal pain, Diarrhea, Subdural hematoma, Nonspecific abnormal electrocardiogram (ECG) (EKG) - Departure Disposition: Still a patient Condition: Fair Referrals: Rafaela Pena MD [Primary Care Provider] -
--- NOTE | 2020-07-09 18:20 | HP ---
Chief Complaint - Chief Complaint Date of Service: 07/09/20 Time of Service: 18:19 Chief Complaint: syncope and fall History of Present Illness: Patient is a recent new resident of the [facility]. She was admitted there earlier this month after several falls at home, and being diagnosed with a subdural hematoma. Chart review shows that hospice was contacted during that hospitalization, but she did not meet criteria. She was sent to the ED today after another fall at the facility and low blood pressure. In the ED, she was having a large amount of diarrhea with a small amount of blood. Blood pressure was a bit low, improved with fluids. White blood cell count slightly high at 12.2. INR not significantly elevated at 1.12. She is hypokalemic with a potassium of 3.0. She has an acute kidney injury, with a creatinine of 1.47, up from 0.91 earlier this month. GFR is 36 today, down from 62. C. difficile and Covid were negative. The size of her subdural hematoma has decreased from 7 mm to 4 mm. A couple hours after arriving to the floor, she exhibited some activity that was somewhat seizure-like or vasovagal. She was having stools that were completely bloody. She did not appear post ictal a few minutes after the episode. Medical History (Last Reviewed 07/09/20 @ 15:11 by Mehdi El MD) Atrial fibrillation Pacemaker Coronary artery disease Hyperlipidemia Hypertension Surgical History: Surgical History (Last Reviewed 07/09/20 @ 15:11 by Mehdi El MD) History of carpal tunnel surgery History of hysterectomy Hx of appendectomy History of heart artery stent Family History: Family History (Last Reviewed 07/09/20 @ 15:11 by Mehdi El MD) Mother Dementia Son Father Myocardial infarction Social History: (Last Reviewed 07/09/20 @ 15:11 by Mehdi El MD) Social History: adopted: No foster care: No assisted: No lives independently: Yes household members: none caregiver/support person: No current occupational status: retired Highest education level completed: high school graduate Service: No Tobacco: Smoking Status: Never smoker Alcohol: alcohol intake: never Substance Use: substance use type: does not use Dietary Habits: caffeine: Yes Review Of Systems (GEN) - Review of Systems Generalized/Overall Review: Present: Weakness. Absent: Fever Respiratory: Absent: Shortness of Breath Cardiac: Absent: Chest Pain, Edema Abdominal: Present: Diarrhea. Absent: Vomiting Genitourinary: Present: No Symptoms Reported Musculoskeletal: Present: Back Pain - Her baseline Neurological: Present: Seizure - Versus vasovagal reaction Immunizations: IMMUNIZATION HX Immunizations Up to Date Yes History of Influenza Vaccine Yes Hx Pneumococcal Vaccination Yes Allergies/Adverse Reactions: Allergies Allergy/AdvReac Type Severity Reaction Status Date / Time lidocaine Allergy Verified 07/09/20 13:54 Home Medications: HOME MEDICATIONS Acetaminophen 325 mg PO 0900,1500,2100 04/29/19 [Last Taken 04/29/19 15:00] Aspirin [Aspirin EC] 81 mg PO DAILY 06/29/19 [Last Taken Unknown] Amiodarone HCl 200 mg PO DAILY 12/21/19 [Last Taken Unknown] simvastatin 20 mg tablet 20 mg PO HS tab 03/17/20 [Last Taken Unknown] Lisinopril [Zestril] 20 mg PO DAILY #30 tab 06/30/20 [Last Taken Unknown] amLODIPine BESYLATE [Norvasc] 5 mg PO DAILY #30 tab 06/30/20 [Last Taken Unknown] calcium carbonate-vitamin D3 600 mg (1,500 mg)-800 unit tablet 1 tab PO DAILY 07/08/20 [Last Taken Unknown] melatonin 3 mg tablet 3 mg PO HS tab 07/08/20 [Last Taken Unknown] tramadol 50 mg tablet 50 mg PO DAILY #30 tab 07/08/20 [Last Taken Unknown] tramadol 50 mg tablet 50 mg PO QPM PRN #30 tab 07/08/20 [Last Taken Unknown] Exam - Exam Vital Signs: Vital Signs - Last Taken Temp 35.8 C L 07/09/20 17:45 Pulse 96 07/09/20 17:45 Resp 20 07/09/20 17:45 BP 92/52 07/09/20 17:45 Pulse Ox 99 07/09/20 17:45 Constitutional: Present: Alert, Other - Appears very fatigued, Elderly Respiratory: Present: lungs clear, normal breath sounds Cardiovascular/Chest: Present: regular rate, rhythm Abdomen: Present: soft, nontender Extremity: Present: lower extremity edema Eye contact: Present: other - Keeps eyes closed throughout exam Thoughts: Present: other - Answers questions appropriately Diagnostic Studies: Abnormal Lab Results 07/09/20 07/09/20 07/09/20 Range/Units 13:29 13: 13:29 WBC 12.2 H (4.0-10.5) K/mm3 MCH 32.4 H (27-31) pg Immature Gran % (Auto) 0.70 H (0.001-0.429) % Immature Gran # (Auto) 0.08 H (0.000-0.0310) K/mm3 Neutrophils % 80.7 H (42-75.0) % Lymphocytes % 16.3 L (20-51) % Neutrophils # 9.9 H (1.3-6.0) K/mm3 PT 11.6 H (9.1-10.7) Seconds INR (Anticoag Therapy) 1.18 H (0.92-1.08) INR PTT ([place]) 22.4 L (24-32) Seconds Potassium 3.0 L D (3.4-4.6) mmol/L Carbon Dioxide 23.0 L (24-32.6) mmol/L Anion Gap 17.0 H (6.8-13.8) mmol/L BUN 31 H D (3-23) mg/dL Creatinine 1.47 H D (0.4-1.4) mg/dL Est GFR (Non-Af Amer) 36 L D (60-130) mL/min Random Glucose 171 H (70-110) mg/dL ALT 17 L (19-67) U/L Alkaline Phosphatase 466 H (50-170) U/L Laboratory Results WBC 12.2 K/mm3 (4.0-10.5) H 07/09/20 13:29 RBC 4.47 M/mm3 (4.2-5.4) 07/09/20 13:29 Hgb 14.5 gm/dL (12.5-16.0) 07/09/20 13:29 Hct 44.7 % (37.0-47.0) 07/09/20 13:29 MCV 100.0 fl (78-100) 07/09/20 13:29 MCH 32.4 pg (27-31) H 07/09/20 13:29 MCHC 32.4 g/dl (32-36) 07/09/20 13:29 RDW 12.8 % (11.5-14.0) 07/09/20 13:29 Plt Count 221 K/mm3 (150-450) 07/09/20 13:29 MPV 11.0 fl (8-12.5) 07/09/20 13:29 Immature Gran % (Auto) 0.70 % (0.001-0.429) H 07/09/20 13:29 Immature Gran # (Auto) 0.08 K/mm3 (0.000-0.0310) H 07/09/20 13:29 Neutrophils % 80.7 % (42-75.0) H 07/09/20 13:29 Lymphocytes % 16.3 % (20-51) L 07/09/20 13:29 Monocytes % 2.1 % (0.0-9) 07/09/20 13:29 Eosinophils % 0.0 % (0.0-3.0) 07/09/20 13:29 Basophils % 0.2 % (0.0-1.0) 07/09/20 13:29 Nucleated RBC % 0.0 k/mm3 (0-1) 07/09/20 13:29 Neutrophils # 9.9 K/mm3 (1.3-6.0) H 07/09/20 13:29 Lymphocytes # 1.99 k/mm3 (1.5-3.5) 07/09/20 13:29 Monocytes # 0.3 k/mm3 (0.0-1.0) 07/09/20 13:29 Eosinophils # 0.0 k/mm3 (0.0-0.7) 07/09/20 13:29 Absolute Basophils 0.0 k/mm3 (0.0-0.1) 07/09/20 13:29 PT 11.6 Seconds (9.1-10.7) H 07/09/20 13:29 INR (Anticoag Therapy) 1.18 INR (0.92-1.08) H 07/09/20 13:29 PTT ([place]) 22.4 Seconds (24-32) L 07/09/20 13:29 Sodium 137 mmol/L (132-142) 07/09/20 13:29 Plasma Sodium 138 mmol/L (130-142) 07/09/20 13:29 Potassium 3.0 mmol/L (3.4-4.6) L D 07/09/20 13:29 Chloride 100 mmol/L (97-106) 07/09/20 13:29 Carbon Dioxide 23.0 mmol/L (24-32.6) L 07/09/20 13:29 Anion Gap 17.0 mmol/L (6.8-13.8) H 07/09/20 13:29 BUN 31 mg/dL (3-23) H D 07/09/20 13:29 Creatinine 1.47 mg/dL (0.4-1.4) H D 07/09/20 13:29 Est GFR (Non-Af Amer) 36 mL/min (60-130) L D 07/09/20 13:29 BUN/Creatinine Ratio 21.1 (9.0-21.6) 07/09/20 13:29 Random Glucose 171 mg/dL (70-110) H 07/09/20 13:29 Calcium 10.2 mg/dL (7.9-10.9) 07/09/20 13:29 Calcium Adj for Albumin 9.8 mg/dL (8.4-10.2) 07/09/20 13:29 Magnesium 2.6 mg/dL (1.2-2.8) 07/09/20 13:29 Total Bilirubin 1.0 mg/dL (0.0-1.1) 07/09/20 13:29 AST 24 U/L (0-48) 07/09/20 13:29 ALT 17 U/L (19-67) L 07/09/20 13:29 Alkaline Phosphatase 466 U/L (50-170) H 07/09/20 13:29 Troponin I 0.033 ng/mL (0.00-0.10) 07/09/20 13:29 Total Protein 7.1 gm/dL (6.2-8.2) 07/09/20 13:29 Albumin 4.1 gm/dl (3.4-5.0) 07/09/20 13:29 Lipase 155 U/L (73-393) 07/09/20 13:29 Stl C.difficile Tox A&B Negative (Negative) 07/09/20 13:29 SARS-CoV-2 (PCR) Not detected (NotDetected) 07/09/20 15:04 Blood Type A Positive 07/09/20 13:29 Antibody Screen Negative 07/09/20 13:29 Assessment/Plan - Assessment/Plan (1) GI bleed Assessment: Unfortunately, the extent of her GI bleed was not apparent until she arrived to the floor. We do not have surgical coverage until 3 days from now. Stat CBC pending. Her hemoglobin was normal earlier today at 14.5. If her hemoglobin has decreased significantlywe will need to discuss goals of care and possible transfer with her POA. Her blood pressure is low, but her pulse is normal and I do not hear a murmur on exam. She has aspirin on her medication list, and will hold this. We will continue normal saline at 150 cc/h. We will add IV Protonix. Problem: Acute (2) Cholelithiasis Assessment: She has a 6 mm gallstone at the gallbladder neck. She is not tender with abdominal exam, and only complained of back pain with me. AST normal, ALT low at 17, and alk phos elevated at 466, which is new from earlier this month. If family would like, can pursue imaging of her gallbladder by ultrasound. Problem: Acute (3) Diarrhea Assessment: Negative C. difficile. She is afebrile. Ova and parasites pending. Her diarrhea has changed from when she is in the ED, and is now more bloody. Suspect GI bleed versus infectious. If her hemoglobin has not changed, will obtain more extensive diarrheal panel. Problem: Acute
[2020-07-09 18:35] LABS: Hematocrit 45.2 % (37.0-47.0); Hemoglobin 14.6 gm/dL (12.5-16.0); Mean Cell Volume 101.1 fl (78-100); Mean Corpuscular Hemoglobin 32.7 pg (27-31); Mean Corpuscular Hgb Conc 32.3 g/dl (32-36); Mean Platelet Volume 10.4 fl (8-12.5); Neutrophil # 17.7 K/mm3 (1.3-6.0); Neutrophil % 87.4 % (42-75.0); Platelet Count 217 K/mm3 (150-450); Red Blood Count 4.47 M/mm3 (4.2-5.4); Red Cell Distribution Width 12.9 % (11.5-14.0); White Blood Count 20.3 K/mm3 (4.0-10.5)
[2020-07-09 18:36] LABS: Total Cells Counted 100
[2020-07-09] MEDS: NORMAL SALINE 1,000 ML IV PRN (18:53)
[2020-07-09 19:10] LABS: Band 6 % (0-2.0); Lymphocyte 7 % (20-51); Monocyte 8 % (0-9); Neutrophil 79 % (42-75); Platelet Estimate Normal (NORMAL); RBC Morphology Normal (NORMAL)
[2020-07-09] MEDS: PANTOPRAZOLE SODIUM 40 MG in NORMAL SALINE 100 ML IV SCH (20:58)
[2020-07-09] MEDS: ACETAMINOPHEN 325 MG TABLET PO SCH (20:58)
[2020-07-09 22:02] LABS: Hematocrit 40.3 % (37.0-47.0); Hemoglobin 13.2 gm/dL (12.5-16.0); Mean Cell Volume 99.5 fl (78-100); Mean Corpuscular Hemoglobin 32.6 pg (27-31); Mean Corpuscular Hgb Conc 32.8 g/dl (32-36); Mean Platelet Volume 10.7 fl (8-12.5); Neutrophil % 88.9 % (42-75.0); Platelet Count 190 K/mm3 (150-450); Red Blood Count 4.05 M/mm3 (4.2-5.4); Red Cell Distribution Width 12.8 % (11.5-14.0); White Blood Count 13.5 K/mm3 (4.0-10.5)
[2020-07-09] MEDS: traMADol HCL 50 MG TABLET PO PRN (22:24)
[2020-07-10] MEDS: NORMAL SALINE 1,000 ML IV PRN ×4 (01:35→22:29)
[2020-07-10 06:28] LABS: Hematocrit 36.5 % (37.0-47.0); Hemoglobin 11.9 gm/dL (12.5-16.0); Mean Cell Volume 99.2 fl (78-100); Mean Corpuscular Hemoglobin 32.3 pg (27-31); Mean Corpuscular Hgb Conc 32.6 g/dl (32-36); Mean Platelet Volume 10.8 fl (8-12.5); Platelet Count 160 K/mm3 (150-450); Red Blood Count 3.68 M/mm3 (4.2-5.4); White Blood Count 13.3 K/mm3 (4.0-10.5)
[2020-07-10 06:44] LABS: Anion Gap 13.3 mmol/L (6.8-13.8); BUN/Creatinine Ratio 27.6 (9.0-21.6); Bilirubin, Total 0.7 mg/dL (0.0-1.1); Ca. Corrected For Albumin 9.5 mg/dL (8.4-10.2); Carbon Dioxide 21.7 mmol/L (24-32.6); Total Protein 5.6 gm/dL (6.2-8.2)
[2020-07-10 06:48] LABS: Total Cells Counted 100
[2020-07-10 07:04] LABS: Band 25 % (0-2.0); Lymphocyte 11 % (20-51); Monocyte 3 % (0-9); Neutrophil 61 % (42-75); Neutrophil # 8.1 K/mm3 (1.3-6.0)
[2020-07-10 07:05] LABS: Platelet Estimate Decreased (NORMAL)
[2020-07-10] MEDS: POTASSIUM CHLORIDE 20 MEQ TABLET.SA PO SCH ×2 (08:32→17:03)
[2020-07-10] MEDS: ACETAMINOPHEN 325 MG TABLET PO SCH ×3 (08:33→20:35)
--- NOTE | 2020-07-10 11:33 | PN ---
Subjective - Date and Time Seen Date: 07/10/20 Time: 09:20 Subjective Narrative: Easily woken for exam. She reports sleeping well last night. The bloody diarrheal stools have decreased. She almost constantly feels like she needs to go to the bathroom, but eliminates very little urine or diarrhea each time. Objective - Review of Systems Generalized/Overall Review: Reports: Weakness. Denies: Fever Respiratory: Denies: Shortness of Breath Cardiac: Denies: Chest Pain Abdominal: Reports: Abdominal Pain, Diarrhea, Bright blood from rectum Genitourinary Symptoms: Reports: No Symptoms Reported Musculoskeletal Complaints: Reports: Back Pain - Vitals Vitals: Last Vital Signs Temp 37.1 C 07/10/20 10:34 Pulse 69 07/10/20 10:34 Resp 18 07/10/20 10:34 BP 155/56 H 07/10/20 10:34 Pulse Ox 96 07/10/20 10:34 - Abnormal Lab Findings Abnormal Lab Findings: Abnormal Lab Results 07/09/20 07/09/20 07/09/20 Range/Units 13:29 13:29 13:29 WBC 12.2 H (4.0-10.5) K/mm3 RBC (4.2-5.4) M/mm3 Hgb (12.5-16.0) gm/dL Hct (37.0-47.0) % MCV (78-100) fl MCH 32.4 H (27-31) pg Immature Gran % (Auto) 0.70 H (0.001-0.429) % Immature Gran # (Auto) 0.08 H (0.000-0.0310) K/mm3 Neutrophils % 80.7 H (42-75.0) % Neutrophils % (Manual) (42-75) % Band Neuts % (Manual) (0-2.0) % Lymphocytes % 16.3 L (20-51) % Lymphocytes % (Manual) (20-51) % Neutrophils # 9.9 H (1.3-6.0) K/mm3 Neutrophils # (Manual) (1.3-6.0) K/mm3 Lymphocytes # (1.5-3.5) k/mm3 Lymphocytes # (Manual) (1.5-3.5) k/mm3 Monocytes # (0.0-1.0) k/mm3 Monocytes # (Manual) (0.0-1.0) k/mm3 Platelet Estimate (NORMAL) PT 11.6 H (9.1-10.7) Seconds INR (Anticoag Therapy) 1.18 H (0.92-1.08) INR PTT ([place]) 22.4 L (24-32) Seconds Potassium 3.0 L D (3.4-4.6) mmol/L Chloride (97-106) mmol/L Carbon Dioxide 23.0 L (24-32.6) mmol/L Anion Gap 17.0 H (6.8-13.8) mmol/L BUN 31 H D (3-23) mg/dL Creatinine 1.47 H D (0.4-1.4) mg/dL Est GFR (Non-Af Amer) 36 L D (60-130) mL/min BUN/Creatinine Ratio (9.0-21.6) Random Glucose 171 H (70-110) mg/dL ALT 17 L (19-67) U/L Alkaline Phosphatase 466 H (50-170) U/L Total Protein (6.2-8.2) gm/dL Albumin (3.4-5.0) gm/dl 07/09/20 07/09/20 07/10/20 Range/Units 18:31 22:00 06:10 WBC 20.3 H D 13.5 H D 13.3 H (4.0-10.5) K/mm3 RBC 4.05 L 3.68 L (4.2-5.4) M/mm3 Hgb 11.9 L (12.5-16.0) gm/dL Hct 36.5 L (37.0-47.0) % MCV 101.1 H (78-100) fl MCH 32.7 H 32.6 H 32.3 H (27-31) pg Immature Gran % (Auto) (0.001-0.429) % Immature Gran # (Auto) 0.06 H 0.04 H (0.000-0.0310) K/mm3 Neutrophils % 87.4 H 88.9 H (42-75.0) % Neutrophils % (Manual) 79 H (42-75) % Band Neuts % (Manual) 6 H 25 H (0-2.0) % Lymphocytes % 3.9 L 3.9 L (20-51) % Lymphocytes % (Manual) 7 L 11 L (20-51) % Neutrophils # 17.7 H 12.0 H (1.3-6.0) K/mm3 Neutrophils # (Manual) 16.0 H 8.1 H (1.3-6.0) K/mm3 Lymphocytes # 0.80 L 0.53 L (1.5-3.5) k/mm3 Lymphocytes # (Manual) 1.4 L (1.5-3.5) k/mm3 Monocytes # 1.7 H (0.0-1.0) k/mm3 Monocytes # (Manual) 1.6 H (0.0-1.0) k/mm3 Platelet Estimate Decreased L (NORMAL) PT (9.1-10.7) Seconds INR (Anticoag Therapy) (0.92-1.08) INR PTT ([place]) (24-32) Seconds Potassium (3.4-4.6) mmol/L Chloride (97-106) mmol/L Carbon Dioxide (24-32.6) mmol/L Anion Gap (6.8-13.8) mmol/L BUN (3-23) mg/dL Creatinine (0.4-1.4) mg/dL Est GFR (Non-Af Amer) (60-130) mL/min BUN/Creatinine Ratio (9.0-21.6) Random Glucose (70-110) mg/dL ALT (19-67) U/L Alkaline Phosphatase (50-170) U/L Total Protein (6.2-8.2) gm/dL Albumin (3.4-5.0) gm/dl 10/25/20 Range/Units 06:10 WBC (4.0-10.5) K/mm3 RBC (4.2-5.4) M/mm3 Hgb (12.5-16.0) gm/dL Hct (37.0-47.0) % MCV (78-100) fl MCH (27-31) pg Immature Gran % (Auto) (0.001-0.429) % Immature Gran # (Auto) (0.000-0.0310) K/mm3 Neutrophils % (42-75.0) % Neutrophils % (Manual) (42-75) % Band Neuts % (Manual) (0-2.0) % Lymphocytes % (20-51) % Lymphocytes % (Manual) (20-51) % Neutrophils # (1.3-6.0) K/mm3 Neutrophils # (Manual) (1.3-6.0) K/mm3 Lymphocytes # (1.5-3.5) k/mm3 Lymphocytes # (Manual) (1.5-3.5) k/mm3 Monocytes # (0.0-1.0) k/mm3 Monocytes # (Manual) (0.0-1.0) k/mm3 Platelet Estimate (NORMAL) PT (9.1-10.7) Seconds INR (Anticoag Therapy) (0.92-1.08) INR PTT ([place]) (24-32) Seconds Potassium 3.0 L (3.4-4.6) mmol/L Chloride 108 H (97-106) mmol/L Carbon Dioxide 21.7 L (24-32.6) mmol/L Anion Gap (6.8-13.8) mmol/L BUN 34 H (3-23) mg/dL Creatinine (0.4-1.4) mg/dL Est GFR (Non-Af Amer) 44 L D (60-130) mL/min BUN/Creatinine Ratio 27.6 H (9.0-21.6) Random Glucose 157 H (70-110) mg/dL ALT 13 L (19-67) U/L Alkaline Phosphatase 274 H (50-170) U/L Total Protein 5.6 L (6.2-8.2) gm/dL Albumin 3.0 L (3.4-5.0) gm/dl - Exam Constitutional: Present: Alert, Cooperative, Elderly Respiratory: Present: lungs clear, normal breath sounds Cardiovascular/Chest: Present: regular rate, rhythm Abdomen: Present: soft, tender Extremity: Absent: lower extremity edema Appearance: Present: impaired recent memory Assessment/Plan - Problems/Diagnosis (1) GI bleed Problem: Acute Narrative: She is having numerous very small diarrheal episodes. Her hemoglobin has gone from 14.5 on admission, to 13.2 yesterday evening, to 11.9 this morning. Repeat pending for early this afternoon. IV protonix has been started. Preliminary stool culture shows no growth, and negative C diff. She had a couple of syncopal episodes, likely from low BP from volume depletion from the diarrhea. She is more alert today, and will start a clear liquid diet. Unfortunately, surgery is not available for 2 more days. If her hemoglobin continues to decrease or if she becomes symptomatic, will probably need to transfer. (2) Hypotension Problem: Resolved Narrative: Resolved after fluids. Blood pressure has been systolic in the 140s and 150s this morning. Will decrease fluids to maintenance rate of 100 cc/hr, and can stop when her diarrhea resolves and she is taking in adequate po hydration. Likely from diarrhea. (3) Cholelithiasis Problem: Acute Narrative: 6 mm stone in the gallbladder neck was found on CT. She is not tender in that region. AST and ALT were not elevated. Alk phos was elevated, which is a new finding, but has improved today, from 466 yesterday to 274 today. I feel like the stone was an incidental finding. (4) Diarrhea Problem: Acute (5) Hypokalemia Problem: Acute Narrative: Potassium of 3.0. We will add 20 mEq potassium twice daily and recheck in the morning. Likely from diarrhea. (6) Subdural hematoma Problem: Acute Narrative: Subdural hematoma was found earlier this month. Imaging done on admission yesterday shows that it is decreased from 7 mm to 4 mm. No further intervention needed. (7) Atrial fibrillation Problem: Chronic Qualifiers: Atrial fibrillation type: unspecified Qualified Code(s): I48.91 - Unspecified atrial fibrillation Narrative: She has a history of A. fib on her chart, but she has not prescribed a rhythm control agent or any anticoagulation. Heart rate is currently controlled without an agent. 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
[2020-07-10 13:04] LABS: Hematocrit 35.9 % (37.0-47.0); Hemoglobin 11.6 gm/dL (12.5-16.0); Mean Cell Volume 101.4 fl (78-100); Mean Corpuscular Hemoglobin 32.8 pg (27-31); Mean Corpuscular Hgb Conc 32.3 g/dl (32-36); Mean Platelet Volume 10.9 fl (8-12.5); Neutrophil # 10.4 K/mm3 (1.3-6.0); Neutrophil % 78.7 % (42-75.0); Platelet Count 161 K/mm3 (150-450); Red Blood Count 3.54 M/mm3 (4.2-5.4); Red Cell Distribution Width 13.2 % (11.5-14.0); White Blood Count 13.2 K/mm3 (4.0-10.5)
[2020-07-10] MEDS: traMADol HCL 50 MG TABLET PO PRN (20:35)
[2020-07-10] MEDS: PANTOPRAZOLE SODIUM 40 MG in NORMAL SALINE 100 ML IV SCH (20:35)
[2020-07-11 07:27] LABS: Anion Gap 11.8 mmol/L (6.8-13.8); BUN/Creatinine Ratio 21.4 (9.0-21.6); Bilirubin, Total 0.7 mg/dL (0.0-1.1); Calcium * 8.5 mg/dL (7.9-10.9); Carbon Dioxide 24.4 mmol/L (24-32.6); Potassium 3.2 mmol/L (3.4-4.6); Total Protein 5.5 gm/dL (6.2-8.2)
[2020-07-11 07:47] LABS: Hematocrit 33.4 % (37.0-47.0); Hemoglobin 10.7 gm/dL (12.5-16.0); Mean Cell Volume 100.9 fl (78-100); Mean Corpuscular Hemoglobin 32.3 pg (27-31); Mean Platelet Volume 11.1 fl (8-12.5); Platelet Count 154 K/mm3 (150-450); Red Blood Count 3.31 M/mm3 (4.2-5.4); Red Cell Distribution Width 13.2 % (11.5-14.0); White Blood Count 10.5 K/mm3 (4.0-10.5)
[2020-07-11 07:49] LABS: Total Cells Counted 100
[2020-07-11 07:53] LABS: Eosinophil 2 % (0-3); Lymphocyte 20 % (20-51); Monocyte 7 % (0-9); Neutrophil 71 % (42-75); Neutrophil # 7.5 K/mm3 (1.3-6.0); Platelet Estimate Normal (NORMAL); RBC Morphology Normal (NORMAL)
[2020-07-11] MEDS: NORMAL SALINE 1,000 ML IV PRN (08:33)
[2020-07-11] MEDS: amLODIPine BESYLATE 5 MG TABLET PO SCH (08:51)
[2020-07-11] MEDS: ACETAMINOPHEN 325 MG TABLET PO SCH ×3 (08:51→21:01)
[2020-07-11] MEDS: POTASSIUM CHLORIDE 20 MEQ TABLET.SA PO SCH (08:51)
[2020-07-11] MEDS: LISINOPRIL 20 MG TABLET PO SCH (08:51)
[2020-07-11] MEDS ORDERED: POTASSIUM BICARBONATE/CIT AC 25 MEQ TABLET.EFF PO ONE (09:35)
[2020-07-11 10:37] LABS: Urine Bilirubin Negative (NEGATIVE); Urine Blood Negative /ul (NEGATIVE); Urine Ketone Negative (NEGATIVE); Urine Protein Negative (NEGATIVE); Urine Urobilinogen Normal (NORMAL)
--- NOTE | 2020-07-11 10:38 | DS ---
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 Her blood pressure responded well to IV fluid hydration. On presentation she was said to have had pink stools but her hemoglobin has stabilized. The subdural hematoma improved on CT scan from 7 mm to 4 mm. She was negative for C. difficile and Covid. She did develop urinary frequency while hospitalized and UA with reflex culture has been ordered. She is stable to be discharged back to the [place] [facility] today and I will follow up on the urine culture as an outpatient. I spoke with the patient's son Chris who is her healthcare proxy and he is okay with sending her back to the [place] [facility] today. He does not want her to to transition to "do not hospitalize" status at this time. He would like to discuss it with his siblings. Procedures Performed: none Results and Findings: Pending Mircobiology Results 07/09/20 13:46 Blood Blood Culture - Preliminary NO GROWTH 24 HOURS 07/09/20 13:29 Blood Blood Culture - Preliminary NO GROWTH 24 HOURS 07/09/20 13:29 Stool Stool Culture - Preliminary No Pathogens Isolated Lab Pending Results 07/09/20 13:29: WBC 12.2 H, RBC 4.47, Hgb 14.5, Hct 44.7, MCV 100.0, MCH 32.4 H, MCHC 32.4, RDW 12.8, Plt Count 221, MPV 11.0, Immature Gran % (Auto) 0.70 H, Immature Gran # (Auto) 0.08 H, Neutrophils % 80.7 H, Lymphocytes % 16.3 L, Monocytes % 2.1, Eosinophils % 0.0, Basophils % 0.2, Nucleated RBC % 0.0, Neutrophils # 9.9 H, Lymphocytes # 1.99, Monocytes # 0.3, Eosinophils # 0.0, Absolute Basophils 0.0 07/09/20 13:29: PT 11.6 H, INR (Anticoag Therapy) 1.18 H, PTT ([place]) 22.4 L 07/09/20 13:29: Sodium 137, Plasma Sodium 138, Potassium 3.0 L D, Chloride 100, Carbon Dioxide 23.0 L, Anion Gap 17.0 H, BUN 31 H D, Creatinine 1.47 H D, Est GFR (Non-Af Amer) 36 L D, BUN/Creatinine Ratio 21.1, Random Glucose 171 H, Calcium 10.2, Calcium Adj for Albumin 9.8, Magnesium 2.6, Total Bilirubin 1.0, AST 24, ALT 17 L, Alkaline Phosphatase 466 H, Troponin I 0.033, Total Protein 7.1, Albumin 4.1, Lipase 155 07/09/20 13:29: Blood Type A Positive, Antibody Screen Negative 07/09/20 13:29: Stl C.difficile Tox A&B Negative 07/09/20 15:04: SARS-CoV-2 (PCR) Not detected 07/09/20 18:31: WBC 20.3 H D, RBC 4.47, Hgb 14.6, Hct 45.2, MCV 101.1 H, MCH 32.7 H, MCHC 32.3, RDW 12.9, Plt Count 217, MPV 10.4, Immature Gran % (Auto) 0.30, Immature Gran # (Auto) 0.06 H, Neutrophils % 87.4 H, Neutrophils % (Manual) 79 H, Band Neuts % (Manual) 6 H, Lymphocytes % 3.9 L, Lymphocytes % (Manual) 7 L, Monocytes % 8.2, Monocytes % (Manual) 8, Eosinophils % 0.0, Basophils % 0.2, Nucleated RBC % 0.0, Neutrophils # 17.7 H, Neutrophils # (Manua l) 16.0 H, Lymphocytes # 0.80 L, Lymphocytes # (Manual) 1.4 L, Monocytes # 1.7 H, Monocytes # (Manual) 1.6 H, Eosinophils # 0.0, Absolute Basophils 0.0, Platelet Estimate Normal, RBC Morphology Normal 07/09/20 22:00: WBC 13.5 H D, RBC 4.05 L, Hgb 13.2, Hct 40.3, MCV 99.5, MCH 32.6 H, MCHC 32.8, RDW 12.8, Plt Count 190, MPV 10.7, Immature Gran % (Auto) 0.30, Immature Gran # (Auto) 0.04 H, Neutrophils % 88.9 H, Lymphocytes % 3.9 L, Monocytes % 6.8, Eosinophils % 0.0, Basophils % 0.1, Nucleated RBC % 0.0, Neutrophils # 12.0 H, Lymphocytes # 0.53 L, Monocytes # 0.9, Eosinophils # 0.0, Absolute Basophils 0.0 07/10/20 06:10: WBC 13.3 H, RBC 3.68 L, Hgb 11.9 L, Hct 36.5 L, MCV 99.2, MCH 32.3 H, MCHC 32.6, RDW 13.0, Plt Count 160, MPV 10.8, Neutrophils % (Manual) 61, Band Neuts % (Manual) 25 H, Lymphocytes % (Manual) 11 L, Monocytes % (Manual) 3, Neutrophils # (Manual) 8.1 H, Lymphocytes # (Manual) 1.5, Monocytes # (Manual) 0.4, Platelet Estimate Decreased L 07/10/20 06:10: Sodium 140, Plasma Sodium 141, Potassium 3.0 L, Chloride 108 H, Carbon Dioxide 21.7 L, Anion Gap 13.3, BUN 34 H, Creatinine 1.23, Est GFR (Non-A f Amer) 44 L D, BUN/Creatinine Ratio 27.6 H, Random Glucose 157 H, Calcium 9.0, Calcium Adj for Albumin 9.5, Total Bilirubin 0.7, AST 22, ALT 13 L, Alkaline Phosphatase 274 H, Total Protein 5.6 L, Albumin 3.0 L 07/10/20 13:00: WBC 13.2 H, RBC 3.54 L, Hgb 11.6 L, Hct 35.9 L, MCV 101.4 H, MCH 32.8 H, MCHC 32.3, RDW 13.2, Plt Count 161, MPV 10.9, Immature Gran % (Auto) 0.20, Immature Gran # (Auto) 0.03, Neutrophils % 78.7 H, Lymphocytes % 11.9 L, Monocytes % 9.0, Eosinophils % 0.0, Basophils % 0.2, Nucleated RBC % 0.0, Neutrophils # 10.4 H, Lymphocytes # 1.56, Monocytes # 1.2 H, Eosinophils # 0.0, Absolute Basophils 0.0 07/11/20 07:07: WBC 10.5 D, RBC 3.31 L, Hgb 10.7 L, Hct 33.4 L, MCV 100.9 H, MCH 32.3 H, MCHC 32.0, RDW 13.2, Plt Count 154, MPV 11.1, Neutrophils % (Manual) 71, Lymphocytes % (Manual) 20, Monocytes % (Manual) 7, Eosinophils % (Manual) 2, Neutrophils # (Manual) 7.5 H, Lymphocytes # (Manual) 2.1, Monocytes # (Manual) 0.7, Eosinophils # (Manual) 0.2, Platelet Estimate Normal, RBC Morphology Normal 07/11/20 07:07: Sodium 139, Plasma Sodium 139, Potassium 3.2 L, Chloride 106, Carbon Dioxide 24.4, Anion Gap 11.8, BUN 18, Creatinine 0.84, Est GFR (Non-Af Amer) 68 D, BUN/Creatinine Ratio 21.4, Random Glucose 108 D, Calcium 8.5, Calcium Adj for Albumin 9.0, Total Bilirubin 0.7, AST 22, ALT 13 L, Alkaline Phosphatase 200 H, Total Protein 5.5 L, Albumin 3.0 L Discharge Location: [facility] Disposition: [facility] Condition: Fair Level of Care: SNF Discharge Activity: Activity as tolerated Discharge Diet: General/regular food Assisted Therapy: Physical Therapy, Occupation Therapy Referrals: Rafaela Pena MD [Primary Care Provider] - Complete Home Medications List: Complete Home Medication List: Acetaminophen 325 mg PO 0900,1500,2100 04/29/19 Aspirin [Aspirin EC] 81 mg PO DAILY 06/29/19 Amiodarone HCl 200 mg PO DAILY 12/21/19 simvastatin 20 mg tablet 20 mg PO HS tab 03/17/20 Lisinopril [Zestril] 20 mg PO DAILY #30 tab 06/30/20 amLODIPine BESYLATE [Norvasc] 5 mg PO DAILY #30 tab 06/30/20 calcium carbonate-vitamin D3 600 mg (1,500 mg)-800 unit tablet 1 tab PO DAILY 07/08/20 melatonin 3 mg tablet 3 mg PO HS tab 07/08/20 tramadol 50 mg tablet 50 mg PO DAILY #30 tab 07/08/20 tramadol 50 mg tablet 50 mg PO QPM PRN #30 tab 07/08/20 Forms: Patient Portal Registration
[2020-07-11 10:40] LABS: Urine Appearance Slightly Cloudy (CLEAR); Urine Bacteria 1+; Urine Color Yellow; Urine Nitrite Positive (NEGATIVE); Urine RBC None Seen /hpf (0-5)
[2020-07-11] MEDS ORDERED: LOPERAMIDE HCL 2 MG CAPSULE PO ONE (12:35)
[2020-07-11] MEDS ORDERED: LOPERAMIDE HCL 2 MG CAPSULE PO PRN (12:46)
--- NOTE | 2020-07-11 12:55 | PN ---
Subjective - Date and Time Seen Date: 07/11/20 Time: 09:55 Subjective Narrative: She complains of feeling that she needs to urinate. Staff states she has had to urinate 7 times in the past few hours. She is tolerating oral diet. Objective - Review of Systems Generalized/Overall Review: Denies: Chills, Fever Respiratory: Denies: Shortness of Breath Cardiac: Denies: Chest Pain Abdominal: Reports: Diarrhea. Denies: Abdominal Pain Genitourinary Symptoms: Reports: Frequency. Denies: Dysuria Misc: All systems neg except as marked - Vitals Vitals: Last Vital Signs Temp 36.5 C 07/11/20 09:47 Pulse 62 07/11/20 09:47 Resp 16 07/11/20 09:47 BP 178/63 H 07/11/20 09:49 Pulse Ox 98 07/11/20 09:47 - Abnormal Lab Findings Abnormal Lab Findings: Abnormal Lab Results 07/10/20 07/11/20 07/11/20 Range/Units 13:00 07:07 07:07 WBC 13.2 H (4.0-10.5) K/mm3 RBC 3.54 L 3.31 L (4.2-5.4) M/mm3 Hgb 11.6 L 10.7 L (12.5-16.0) gm/dL Hct 35.9 L 33.4 L (37.0-47.0) % MCV 101.4 H 100.9 H (78-100) fl MCH 32.8 H 32.3 H (27-31) pg Neutrophils % 78.7 H (42-75.0) % Lymphocytes % 11.9 L (20-51) % Neutrophils # 10.4 H (1.3-6.0) K/mm3 Neutrophils # (Manual) 7.5 H (1.3-6.0) K/mm3 Monocytes # 1.2 H (0.0-1.0) k/mm3 Potassium 3.2 L (3.4-4.6) mmol/L ALT 13 L (19-67) U/L Alkaline Phosphatase 200 H (50-170) U/L Total Protein 5.5 L (6.2-8.2) gm/dL Albumin 3.0 L (3.4-5.0) gm/dl Urine Glucose (UA) (NEGATIVE) mg/dL Urine Nitrate (NEGATIVE) Urine WBC (0-5) /hpf Urine Bacteria (NONE) 07/11/20 Range/Units 10:30 WBC (4.0-10.5) K/mm3 RBC (4.2-5.4) M/mm3 Hgb (12.5-16.0) gm/dL Hct (37.0-47.0) % MCV (78-100) fl MCH (27-31) pg Neutrophils % (42-75.0) % Lymphocytes % (20-51) % Neutrophils # (1.3-6.0) K/mm3 Neutrophils # (Manual) (1.3-6.0) K/mm3 Monocytes # (0.0-1.0) k/mm3 Potassium (3.4-4.6) mmol/L ALT (19-67) U/L Alkaline Phosphatase (50-170) U/L Total Protein (6.2-8.2) gm/dL Albumin (3.4-5.0) gm/dl Urine Glucose (UA) 100 H (NEGATIVE) mg/dL Urine Nitrate Positive H (NEGATIVE) Urine WBC 5-10 H (0-5) /hpf Urine Bacteria 1+ H (NONE) - Exam Constitutional: Present: Alert, Cooperative, Well developed, Well nourished, No distress, Elderly ENT Exam: Present: hearing grossly normal Neck: Present: non-tender, supple. Absent: lymphadenopathy (R), lymphadenopathy (L) Respiratory: Present: lungs clear, no respiratory distress, no accessory muscle use, No wheezing. Absent: crackles, rhonchi Cardiovascular/Chest: Present: normal peripheral pulses, regular rate, rhythm, no edema, no murmur Abdomen: Present: Normal bowel sounds, soft, nontender Extremity: Present: no pedal edema Skin Exam: Present: normal color, warm/dry Neurologic: Present: alert, normal mood/affect Appearance: Present: appropriate appearance, appropriate insight Eye contact: Present: cooperative Thoughts: Present: normal thought pattern, normal mood /affect Assessment/Plan Plan Narrative: 84-year-old female with a past medical history of atrial fibrillation, hypertension, hyperlipidemia, coronary artery disease, pacemaker presents from [facility] with hypotension, syncopal episode and diarrhea. Her blood pressure responded well to IV fluid hydration. On presentation she was said to have had pink stools but her hemoglobin has stabilized. The subdural hematoma improved on CT scan from 7 mm to 4 mm. She was negative for C. difficile and Covid. She did develop urinary frequency while hospitalized and UA with reflex culture has been ordered. She is stable to be discharged back to the shelter today and I will follow up on the urine culture as an outpatient. I spoke with the patient's son Chris who is her healthcare proxy and he is okay with sending her back to the shelter today. He does not want her to to transition to "do not hospitalize" status at this time. He would like to discuss it with his siblings. Patient developed increased episodes of loose diarrhea. Due to her being on IV fluids until this morning and the frequent episodes of diarrhea I will keep her in the hospital for further observation. I would like to make sure she is maintaining her blood pressure with oral hydration even while having diarrhea. Stool culture is negative and C. difficile is negative, therefore I will start her on loperamide for symptom control. Plan #1 hold IV fluids #2 encourage oral hydration #3 transition to inpatient status #4 start loperamide 4 mg x 1 dose followed by 2 mg after each loose stool, maximum 10 mg/day #5 continue home medications for comorbidities #6 VTE prophylaxis 7 CBC and CMP - Problems/Diagnosis (1) Hypotension Problem: Resolved (2) Diarrhea Problem: Acute (3) Subdural hematoma Problem: Acute (4) Hypokalemia Problem: Acute (5) Syncope Problem: Acute (6) Cholelithiasis Problem: Acute (7) GI bleed Problem: Acute (8) Atrial fibrillation Problem: Chronic Qualifiers: Atrial fibrillation type: unspecified Qualified Code(s): I48.91 - Unspecified atrial fibrillation (9) 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
[2020-07-11] MEDS ORDERED: LISINOPRIL 10 MG TABLET PO ONE (13:42)
[2020-07-11] MEDS: PANTOPRAZOLE SODIUM 40 MG in NORMAL SALINE 100 ML IV SCH (21:00)
[2020-07-11] MEDS: CIPROFLOXACIN HCL 250 MG TABLET PO SCH (21:00)
[2020-07-11] MEDS: traMADol HCL 50 MG TABLET PO PRN (21:01)
[2020-07-12 06:35] LABS: Hematocrit 33.5 % (37.0-47.0); Hemoglobin 10.8 gm/dL (12.5-16.0); Mean Cell Volume 99.4 fl (78-100); Mean Corpuscular Hgb Conc 32.2 g/dl (32-36); Mean Platelet Volume 10.7 fl (8-12.5); Neutrophil # 4.4 K/mm3 (1.3-6.0); Neutrophil % 64.6 % (42-75.0); Platelet Count 144 K/mm3 (150-450); Red Blood Count 3.37 M/mm3 (4.2-5.4); Red Cell Distribution Width 12.7 % (11.5-14.0); White Blood Count 6.8 K/mm3 (4.0-10.5)
[2020-07-12 06:49] LABS: Albumin * 3.2 gm/dl (3.4-5.0); Anion Gap 13.4 mmol/L (6.8-13.8); BUN/Creatinine Ratio 14.5 (9.0-21.6); Bilirubin, Total 0.7 mg/dL (0.0-1.1); Ca. Corrected For Albumin 9.3 mg/dL (8.4-10.2); Carbon Dioxide 24.6 mmol/L (24-32.6)
[2020-07-12] MEDS: CIPROFLOXACIN HCL 250 MG TABLET PO SCH (08:03)
[2020-07-12] MEDS: LISINOPRIL 20 MG TABLET PO SCH (08:04)
[2020-07-12] MEDS: amLODIPine BESYLATE 5 MG TABLET PO SCH (08:04)
[2020-07-12] MEDS: ACETAMINOPHEN 325 MG TABLET PO SCH (08:05)
[2020-07-12] MEDS ORDERED: POTASSIUM BICARBONATE/CIT AC 25 MEQ TABLET.EFF PO SCH (09:00)
[2020-07-12] MEDS ORDERED: POTASSIUM BICARBONATE/CIT AC 25 MEQ TABLET.EFF PO ONE (09:18)
--- NOTE | 2020-07-12 10:24 | DS ---
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 Her blood pressure responded well to IV fluid hydration. On presentation she was said to have had pink stools but her hemoglobin has stabilized. The subdural hematoma improved on CT scan from 7 mm to 4 mm. She was negative for C. difficile and Covid. She did develop urinary frequency while hospitalized and UA with reflex culture has been ordered. She is stable to be discharged back to the longterm today and I will follow up on the urine culture as an outpatient. I spoke with the patient's son Chris who is her healthcare proxy and he is okay with sending her back to the longterm today. He does not want her to to transition to "do not hospitalize" status at this time. He would like to discuss it with his siblings. Patient remained hospitalized for 1 more day due to recurrent diarrhea. I wanted to make sure that her blood pressure remained stable without IV fluid hydration in light of the diarrhea. Since her stool culture and C. difficile we re negative on admission, I gave her a dose of loperamide with good response. She has not had diarrhea today. She is stable to be discharged back to the longterm today. Procedures Performed: none Results and Findings: Pending Mircobiology Results 07/11/20 10:44 Urine,Clean Catch Urine Culture - Preliminary Gram Negative Bacilli 07/09/20 13:46 Blood Blood Culture - Preliminary NO GROWTH AFTER 48 HOURS 07/09/20 13:29 Blood Blood Culture - Preliminary NO GROWTH AFTER 48 HOURS 07/09/20 13:29 Stool Stool Culture - Preliminary No Pathogens Isolated Lab Pending Results 07/09/20 13:29: WBC 12.2 H, RBC 4.47, Hgb 14.5, Hct 44.7, MCV 100.0, MCH 32.4 H, MCHC 32.4, RDW 12.8, Plt Count 221, MPV 11.0, Immature Gran % (Auto) 0.70 H, Immature Gran # (Auto) 0.08 H, Neutrophils % 80.7 H, Lymphocytes % 16.3 L, Monocytes % 2.1, Eosinophils % 0.0, Basophils % 0.2, Nucleated RBC % 0.0, Neutrophils # 9.9 H, Lymphocytes # 1.99, Monocytes # 0.3, Eosinophils # 0.0, Absolute Basophils 0.0 07/09/20 13:29: PT 11.6 H, INR (Anticoag Therapy) 1.18 H, PTT ([place]) 22.4 L 07/09/20 13:29: Sodium 137, Plasma Sodium 138, Potassium 3.0 L D, Chloride 100, Carbon Dioxide 23.0 L, Anion Gap 17.0 H, BUN 31 H D, Creatinine 1.47 H D, Est GFR (Non-Af Amer) 36 L D, BUN/Creatinine Ratio 21.1, Random Glucose 171 H, Calcium 10.2, Calcium Adj for Albumin 9.8, Magnesium 2.6, Total Bilirubin 1.0, AST 24, ALT 17 L, Alkaline Phosphatase 466 H, Troponin I 0.033, Total Protein 7.1, Albumin 4.1, Lipase 155 07/09/20 13:29: Blood Type A Positive, Antibody Screen Negative 07/09/20 13:29: Stl C.difficile Tox A&B Negative 07/09/20 15:04: SARS-CoV-2 (PCR) Not detected 07/09/20 18:31: WBC 20.3 H D, RBC 4.47, Hgb 14.6, Hct 45.2, MCV 101.1 H, MCH 32.7 H, MCHC 32.3, RDW 12.9, Plt Count 217, MPV 10.4, Immature Gran % (Auto) 0.30, Immature Gran # (Auto) 0.06 H, Neutrophils % 87.4 H, Neutrophils % (Manual) 79 H, Band Neuts % (Manual) 6 H, Lymphocytes % 3.9 L, Lymphocytes % (Manual) 7 L, Monocytes % 8.2, Monocytes % (Manual) 8, Eosinophils % 0.0, Basophils % 0.2, Nucleated RBC % 0.0, Neutrophils # 17.7 H, Neutrophils # (Manual) 16.0 H, Lymphocytes # 0.80 L, Lymphocytes # (Manual) 1.4 L, Monocytes # 1.7 H, Monocytes # (Manual) 1.6 H, Eosinophils # 0.0, Absolute Basophils 0.0, Platelet Estimate Normal, RBC Morphology Normal 07/09/20 22:00: WBC 13.5 H D, RBC 4.05 L, Hgb 13.2, Hct 40.3, MCV 99.5, MCH 32.6 H, MCHC 32.8, RDW 12.8, Plt Count 190, MPV 10.7, Immature Gran % (Auto) 0.30, Immature Gran # (Auto) 0.04 H, Neutrophils % 88.9 H, Lymphocytes % 3.9 L, Monocytes % 6.8, Eosinophils % 0.0, Basophils % 0.1, Nucleated RBC % 0.0, Neutrophils # 12.0 H, Lymphocytes # 0.53 L, Monocytes # 0.9, Eosinophils # 0.0, Absolute Basophils 0.0 07/10/20 06:10: WBC 13.3 H, RBC 3.68 L, Hgb 11.9 L, Hct 36.5 L, MCV 99.2, MCH 32.3 H, MCHC 32.6, RDW 13.0, Plt Count 160, MPV 10.8, Neutrophils % (Manual) 61, Band Neuts % (Manual) 25 H, Lymphocytes % (Manual) 11 L, Monocytes % (Manual) 3, Neutrophils # (Manual) 8.1 H, Lymphocytes # (Manual) 1.5, Monocytes # (Manual) 0.4, Platelet Estimate Decreased L 07/10/20 06:10: Sodium 140, Plasma Sodium 141, Potassium 3.0 L, Chloride 108 H, Carbon Dioxide 21.7 L, Anion Gap 13.3, BUN 34 H, Creatinine 1.23, Est GFR (Non- Af Amer) 44 L D, BUN/Creatinine Ratio 27.6 H, Random Glucose 157 H, Calcium 9.0, Calcium Adj for Albumin 9.5, Total Bilirubin 0.7, AST 22, ALT 13 L, Alkaline Phosphatase 274 H, Total Protein 5.6 L, Albumin 3.0 L 07/10/20 13:00: WBC 13.2 H, RBC 3.54 L, Hgb 11.6 L, Hct 35.9 L, MCV 101.4 H, MCH 32.8 H, MCHC 32.3, RDW 13.2, Plt Count 161, MPV 10.9, Immature Gran % (Auto) 0.20, Immature Gran # (Auto) 0.03, Neutrophils % 78.7 H, Lymphocytes % 11.9 L, Monocytes % 9.0, Eosinophils % 0.0, Basophils % 0.2, Nucleated RBC % 0.0, Neutrophils # 10.4 H, Lymphocytes # 1.56, Monocytes # 1.2 H, Eosinophils # 0.0, Absolute Basophils 0.0 07/11/20 07:07: WBC 10.5 D, RBC 3.31 L, Hgb 10.7 L, Hct 33.4 L, MCV 100.9 H, MCH 32.3 H, MCHC 32.0, RDW 13.2, Plt Count 154, MPV 11.1, Neutrophils % (Manual) 71, Lymphocytes % (Manual) 20, Monocytes % (Manual) 7, Eosinophils % (Manual) 2, Neutrophils # (Manual) 7.5 H, Lymphocytes # (Manual) 2.1, Monocytes # (Manual) 0.7, Eosinophils # (Manual) 0.2, Platelet Estimate Normal, RBC Morphology Normal 07/11/20 07:07: Sodium 139, Plasma Sodium 139, Potassium 3.2 L, Chloride 106, Carbon Dioxide 24.4, Anion Gap 11.8, BUN 18, Creatinine 0.84, Est GFR (Non-Af Amer) 68 D, BUN/Creatinine Ratio 21.4, Random Glucose 108 D, Calcium 8.5, Calcium Adj for Albumin 9.0, Total Bilirubin 0.7, AST 22, ALT 13 L, Alkaline Phosphatase 200 H, Total Protein 5.5 L, Albumin 3.0 L 07/11/20 10:30: Urine Color Yellow, Urine Appearance Slightly cloudy, Urine pH 6.0, Ur Specific [place] 1.020, Urine Protein Negative, Urine Glucose (UA) 100 H, Urine Ketones Negative, Urine Blood Negative, Urine Nitrate Positive H, Urine Bilirubin Negative, Urine Urobilinogen Normal, Ur Leukocyte Esterase Negative, Urine RBC None seen, Urine WBC 5-10 H, Ur Epithelial Cells 0-5, Urine Bacteria 1+ H, Urine Culture Comments Culture to follow 07/12/20 06:20: WBC 6.8 D, RBC 3.37 L, Hgb 10.8 L, Hct 33.5 L, MCV 99.4, MCH 32.0 H, MCHC 32.2, RDW 12.7, Plt Count 144 L, MPV 10.7, Immature Gran % (Auto) 0.30, Immature Gran # (Auto) 0.02, Neutrophils % 64.6, Lymphocytes % 26.2, Monocytes % 8.5, Eosinophils % 0.0, Basophils % 0.4, Nucleated RBC % 0.0, Neutrophils # 4.4, Lymphocytes # 1.78, Monocytes # 0.6, Eosinophils # 0.0, Absolute Basophils 0.0 07/12/20 06:20: Sodium 137, Plasma Sodium 137, Potassium 3.0 L, Chloride 102, Carbon Dioxide 24.6, Anion Gap 13.4, BUN 10, Creatinine 0.69, Est GFR (Non-Af Amer) 86 D, BUN/Creatinine Ratio 14.5, Random Glucose 91, Calcium 9.0, Calcium Adj for Albumin 9.3, Total Bilirubin 0.7, AST 21, ALT 15 L, Alkaline Phosphatase 170, Total Protein 6.0 L, Albumin 3.2 L 07/12/20 09:33: Potassium 3.1 L Discharge Location: [facility] Disposition: SNF Condition: Stable Level of Care: SNF Discharge Activity: Activity as tolerated Discharge Diet: General/regular food Residential Therapy: Physical Therapy, Occupation Therapy Referrals: Rafaela Pena MD [Primary Care Provider] - Prescriptions (Any new or edited meds): Ciprofloxacin HCl [Cipro] 250 mg PO BID #4 tab Transmission Status: Pending to [facility] Complete Home Medications List: Complete Home Medication List: Acetaminophen 325 mg PO 0900,1500,2100 04/29/19 Aspirin [Aspirin EC] 81 mg PO DAILY 06/29/19 Amiodarone HCl 200 mg PO DAILY 12/21/19 simvastatin 20 mg tablet 20 mg PO HS tab 03/17/20 Lisinopril [Zestril] 20 mg PO DAILY #30 tab 06/30/20 amLODIPine BESYLATE [Norvasc] 5 mg PO DAILY #30 tab 06/30/20 calcium carbonate-vitamin D3 600 mg (1,500 mg)-800 unit tablet 1 tab PO DAILY 07/08/20 melatonin 3 mg tablet 3 mg PO HS tab 07/08/20 tramadol 50 mg tablet 50 mg PO DAILY #30 tab 07/08/20 tramadol 50 mg tablet 50 mg PO QPM PRN #30 tab 07/08/20 Ciprofloxacin HCl [Cipro] 250 mg PO BID #4 tab 07/12/20 Forms: Patient Portal Registration
[2020-07-12 13:01] VITALS: BP 158/56
== END 2020-07-12 13:30 ==
LOC: ER 13:02 → MS 13:02
PROVIDERS: ADMIT Family Medicine; ATTEND Internal Medicine

== ENCOUNTER 2020-09-02 13:01 | Inpatient (IN) ==
[2020-09-02] MEDS ORDERED: NORMAL SALINE 1,000 ML IV ONE ×2 (13:19→15:14)
[2020-09-02 13:40] LABS: Hematocrit 29.5 % (37.0-47.0); Hemoglobin 9.8 gm/dL (12.5-16.0); Mean Cell Volume 94.2 fl (78-100); Mean Corpuscular Hemoglobin 31.3 pg (27-31); Mean Corpuscular Hgb Conc 33.2 g/dl (32-36); Mean Platelet Volume 9.3 fl (8-12.5); Neutrophil # 10.9 K/mm3 (1.3-6.0); Neutrophil % 84.4 % (42-75.0); Platelet Count 245 K/mm3 (150-450); Red Blood Count 3.13 M/mm3 (4.2-5.4); Red Cell Distribution Width 12.6 % (11.5-14.0)
--- NOTE | 2020-09-02 13:50 | ERNOTE ---
Medical Problem HPI - Narrative Date of Service: 09/02/20 - General Chief Complaint: General Assessment Time Seen by Provider: 09/02/20 13:12 Source: patient Exam Limitations: no limitations - Immun/Allergies/Home Medications Immunizations: IMMUNIZATION HX Immunizations Up to Date Yes History of Influenza Vaccine Yes Hx Pneumococcal Vaccination Yes Allergies/Adverse Reactions: Allergies lidocaine Allergy (Verified 09/02/20 13:13) Home Medications: HOME MEDICATIONS Acetaminophen 325 mg PO 0900,1500,2100 04/29/19 [Last Taken 04/29/19 15:00] Aspirin [Aspirin EC] 81 mg PO DAILY 06/29/19 [Last Taken Unknown] Amiodarone HCl 100 mg PO DAILY 12/21/19 [Last Taken Unknown] simvastatin 20 mg tablet 20 mg PO HS tab 03/17/20 [Last Taken Unknown] Lisinopril [Zestril] 20 mg PO DAILY #30 tab 06/30/20 [Last Taken Unknown] calcium carbonate-vitamin D3 600 mg (1,500 mg)-800 unit tablet 1 tab PO DAILY 07/08/20 [Last Taken Unknown] tramadol 50 mg tablet 50 mg PO DAILY #30 tab 07/08/20 [Last Taken Unknown] tramadol 50 mg tablet 50 mg PO QPM PRN #30 tab 07/08/20 [Last Taken Unknown] docusate sodium 50 mg capsule 50 mg PO BID PRN #1 cap 07/14/20 [Last Taken Unknown] food supplemt, lactose-reduced 0.04 gram-1 kcal/mL oral liquid 1 ea PO BID #1 ml 07/14/20 [Last Taken Unknown] sennosides 8.6 mg tablet 17.2 mg PO DAILY PRN #1 tab 07/14/20 [Last Taken Unknown] wheat dextrin 3 gram/4 gram oral powder 4 g PO DAILY PRN #1 g 07/14/20 [Last Taken Unknown] diclofenac sodium 1 % topical gel 2 g TP QID PRN #1 g 08/10/20 [Last Taken Unknown] benzonatate 200 mg capsule 200 mg PO TID PRN #1 cap 08/25/20 [Last Taken Unknown] Bisacodyl 10 mg RC Q24H PRN 08/26/20 [Last Taken Unknown] acetaminophen 325 mg tablet 650 mg PO Q6H PRN #1 tab 08/26/20 [Last Taken Unknown] melatonin 5 mg tablet 5 mg PO HS #1 tab 08/26/20 [Last Taken Unknown] guaiFENesin [Expectorant] 200 mg PO Q4H PRN 09/02/20 [Last Taken Unknown] - History of Present History Narrative: Patient presents to the ED from the care center for increased generalized weakness. Patient has been having more frequent falls, increased generalized weakness and low back pain for over a week since a fall. No specific leg weakness, generalized in nature. This has especially been progressive over the last one and a half weeks. No fever. Dark uyrine, has not been eating and drinking as much. Denies CP or SOB. No fever, no acute abdominal pain. Timing: constant, getting worse Severity: moderate Modifying Factors - (Improves): Present: other - nothing Modifying Factors - (Worsens): Present: other - nothing Review of Systems - Review of Systems Constitutional: Absent: fever EYE: Present: no symptoms reported ENT: Absent: sore throat Respiratory: Absent: cough Cardiology: Absent: chest pain Gastrointestinal/Abdominal: Absent: abdominal pain Genitourinary: Present: See HPI Neurological: Present: See HPI All Other Systems: All systems neg except as marked Medical History (Last Reviewed 09/02/20 @ 13:47 by Mehdi El MD) Atrial fibrillation COVID-19 Cardiomegaly Other intervertebral disc degeneration, lumbar region Pacemaker Weakness Coronary artery disease Hyperlipidemia Hypertension Surgical History: Surgical History (Last Reviewed 09/02/20 @ 13:47 by Mehdi El MD) History of carpal tunnel surgery History of hysterectomy Hx of appendectomy History of heart artery stent Family History: Family History (Last Reviewed 09/02/20 @ 13:47 by Mehdi El MD) Mother Dementia Son Father Myocardial infarction Social History: (Last Reviewed 09/02/20 @ 13:47 by Mehdi El MD) Social History: adopted: No foster care: No chcf: Yes lives independently: No household members: none caregiver/support person: No current occupational status: retired Highest level of school completed/degree received: high school graduate Service: No Tobacco: Smoking Status: Never smoker Alcohol: alcohol intake: never Substance Use: substance use type: does not use Dietary Habits: caffeine: Yes Physical Exam - Physical Exam General Appearance: Present: alert, other - chromically ill appearing, speaks to me without difficulty Head Exam: Present: other - Bruising right face, old. Absent: Alejo's Sign, raccoon eyes Eye Exam: PERRL: bilateral Ears, Nose, Throat: Present: dry mucous membranes Neck: Present: other - trachea midline. Absent: tender posterior midline Respiratory: Present: no respiratory distress, normal breath sounds, lungs clear Cardiovascular/Chest: Present: regular rate, rhythm, normal peripheral pulses Gastrointestinal/Abdominal: Present: normal bowel sounds, nontender, nondistended, soft Back Exam: Present: other - paraspinal lumbar tendenress noted. No localizing point vertebral tenderness. Absent: CVA tenderness (R), CVA tenderness (L) Extremity Exam: Absent: calf tenderness Neurological Exam: Present: alert, other - generalized weakness, no acut eunilateral focal motor or sensory deficits Skin Exam: Present: normal color, warm/dry, other - facial bruise noted Progress - Results and Orders Patient's Lab Results:: I have reviewed the patient's lab results. - Vital Signs Patient's Vital Signs:: I have reviewed the patient's vital signs. Vital Signs: Vital Signs 09/02/20 13:09 Temperature 36.6 C Pulse Rate 66 Respiratory Rate 25 H Blood Pressure 129/49 O2 Sat by Pulse Oximetry 97 - EKG EKG #1 EKG read: Interp. by me EKG Comments: Paced, rate 59. Non-specific ST/T wave changes, no clear evidence of STEMI. - X-Ray X-Ray #1 X-Ray: chest Interpretation: Interp. by me X-ray Comments: I personally reviewed CXR image as well as official radiology report X-Ray #2 X-Ray: lumbosacral Interpretation: Interp. by me X-ray Comments: I personally reviewed official radiology report as well as visualized the x-ray images. - Progress/Reassessment Chief Complaint: General Assessment Progress Note-Subjective: 09/02/20 15:23 IV ABx and IV potassium ordered. I spoke with Dr Pena about admission but Dr Chase is personal injury law specialist. When I discussed this with the patient she did not want to be admitted, wanted to go back to the care center. Given she had IV Abx and could complete the potassium here, I was willing ot try this approach. Her son apparently called upset and wanted her admitted, saying he had power of ip technology transactions attorney but we had not been given that paperwork. I spoke with Dr Chase and he will admit which is certainly reasonable and was the original plan. I did given her a small amount of morphine for her long-standing back pain. 09/02/20 15:47 09/02/20 15:51 Departure Clinical Impression: Pneumonia, UTI (urinary tract infection), Hypokalemia, Generalized weakness - Departure Disposition: Still a patient Condition: Fair Referrals: Rafaela Pena MD [Primary Care Provider] -
[2020-09-02 13:53] LABS: ALT 16 U/L (19-67); AST 22 U/L (0-48); Alkaline Phosphatase * 85 U/L (50-170); Anion Gap 6.5 mmol/L (6.8-13.8); BUN/Creatinine Ratio 13.8 (9.0-21.6); Bilirubin, Total 0.6 mg/dL (0.0-1.1); Blood Urea Nitrogen 11 mg/dL (3-23); Ca. Corrected For Albumin 9.6 mg/dL (8.4-10.2); Calcium * 8.3 mg/dL (7.9-10.9); Chloride 94 mmol/L (97-106); Glucose * 130 mg/dL (70-110); Sodium 131 mmol/L (132-142); Total Protein 5.3 gm/dL (6.2-8.2); Troponin I Less than 0.017 ng/mL (0.00-0.10)
[2020-09-02 13:57] LABS: Potassium 2.5 mmol/L (3.4-4.6)
[2020-09-02 14:29] LABS: Urine Bilirubin Negative (NEGATIVE); Urine Blood 250 /ul (NEGATIVE); Urine Ketone Negative (NEGATIVE); Urine Protein 30 mg/dL (NEGATIVE); Urine Specific Gravity 1.025 SP.GR. (1.005-1.010); Urine pH 6.5 pH (5.0-7.0)
[2020-09-02] MEDS ORDERED: cefTRIAXone SODIUM 1,000 MG/100 ML BAG IV ONE (14:32)
[2020-09-02 14:45] LABS: Urine Appearance Cloudy (CLEAR); Urine Color Yellow; Urine Nitrite Positive (NEGATIVE)
[2020-09-02] MEDS ORDERED: AZITHROMYCIN 500 MG in DEXTROSE 5 % IN WATER 250 ML IV ONE ×2 (14:45)
[2020-09-02 14:46] LABS: Urine Bacteria 4+; Urine RBC >50 /hpf (0-5); Urine WBC >50 /hpf (0-5)
[2020-09-02] MEDS ORDERED: MORPHINE SULFATE 2 MG/ML DISP.SYRIN IV ONE (14:46)
[2020-09-02] MEDS: POTASSIUM CHLORIDE IN WATER 100 ML IV SCH ×4 (15:09→19:10)
[2020-09-02] MEDS ORDERED: traMADol HCL 50 MG TABLET PO PRN (17:13)
[2020-09-02] MEDS: VANCOMYCIN HCL 50 MG/ML BTL PO SCH ×2 (18:03→23:07)
--- NOTE | 2020-09-02 19:42 | HP ---
Chief Complaint - Chief Complaint Date of Service: 09/02/20 Time of Service: 19:41 Chief Complaint: Weakness and back pain History of Present Illness: 84-year-old female with history of chronic lumbar back pain, A. fib, hypertension, presented to the ED after worsening weakness and back pain for the last week. She states that she does not felt well. In the ER she was found to have right lobar pneumonia as well as a UTI. She also was endorsing incontinence with her bowels. She was tested for C. difficile which came back positive. Her initial white count was 13.0 with a left shift. Otherwise her vital signs are stable and she has been afebrile. Patient was given a dose of Rocephin and azithromycin in the ER. She was started on oral vancomycin when she got to the floor. Patient was admitted as inpatient to the hospital for C. difficile diarrhea, right lobar pneumonia, and UTI. Currently being treated with Rocephin, azithromycin, and vancomycin (orally). Patient endorses "feeling like crap ". She is generally weak but has no focal neurological deficits. She denies cough or shortness of breath at this time. She does have some suprapubic discomfort on examination but denied pain with urination or increased frequency/urgency. Other abnormalities include her to be slightly hyponatremic at 131, hypokalemic at 2.5. Initial lactic acid was 2.1 which trended downward to 1.9 upon repeat. Urine showed positive blood, positive urine nitrate, positive leukocyte esterase, positive bacteria, positive red blood cells and white blood cells. Preliminary culture on urine growing gram-negative bacilli greater than 100,000 colony-forming units. Chest x-ray showed right lower lobe infiltrate and a questionable left lower lobe infiltrate ( I did not see the left lower lobe treatment I looked at the x-ray). Medical History (Last Reviewed 09/02/20 @ 16:38 by Gigi Nguyen RN) Atrial fibrillation COVID-19 Cardiomegaly Other intervertebral disc degeneration, lumbar region Pacemaker Weakness Coronary artery disease Hyperlipidemia Hypertension Surgical History: Surgical History (Last Reviewed 09/02/20 @ 16:38 by Gigi Nguyen RN) History of carpal tunnel surgery History of hysterectomy Hx of appendectomy History of heart artery stent Family History: Family History (Last Reviewed 09/02/20 @ 16:38 by Gigi Nguyen RN) Mother Dementia Son Father Myocardial infarction Social History: (Last Reviewed 09/02/20 @ 16:38 by Gigi Nguyen RN) Social History: adopted: No foster care: No fci: Yes lives independently: No household members: none caregiver/support person: No current occupational status: retired Highest level of school completed/degree received: high school graduate Service: No Tobacco: Smoking Status: Never smoker Alcohol: alcohol intake: never Substance Use: substance use type: does not use Dietary Habits: caffeine: Yes Review Of Systems (GEN) - Review of Systems Generalized/Overall Review: Present: Weakness. Absent: Chills, Fever EENTM: Present: No Symptoms Reported Respiratory: Absent: Cough, Shortness of Breath Cardiac: Present: No Symptoms Reported Abdominal: Present: Abdominal Pain. Absent: Nausea, Vomiting Genitourinary: Absent: Burning, Itching, Urgency, Frequency Musculoskeletal: Present: Back Pain Neurological: Absent: Headache, Weakness, Pre-existing Deficit Skin: Present: No Symptoms Reported Immunizations: IMMUNIZATION HX Immunizations Up to Date Yes History of Influenza Vaccine Yes Hx Pneumococcal Vaccination Yes Allergies/Adverse Reactions: Allergies Allergy/AdvReac Type Severity Reaction Status Date / Time lidocaine Allergy Verified 09/02/20 16:38 Home Medications: HOME MEDICATIONS Acetaminophen 325 mg PO 0900,1500,2100 04/29/19 [Last Taken 04/29/19 15:00] Aspirin [Aspirin EC] 81 mg PO DAILY 06/29/19 [Last Taken Unknown] Amiodarone HCl 100 mg PO DAILY 12/21/19 [Last Taken Unknown] simvastatin 20 mg tablet 20 mg PO HS tab 03/17/20 [Last Taken Unknown] Lisinopril [Zestril] 20 mg PO DAILY #30 tab 06/30/20 [Last Taken Unknown] calcium carbonate-vitamin D3 600 mg (1,500 mg)-800 unit tablet 1 tab PO DAILY 07/08/20 [Last Taken Unknown] tramadol 50 mg tablet 50 mg PO DAILY #30 tab 07/08/20 [Last Taken Unknown] tramadol 50 mg tablet 50 mg PO QPM PRN #30 tab 07/08/20 [Last Taken Unknown] docusate sodium 50 mg capsule 50 mg PO BID PRN #1 cap 07/14/20 [Last Taken Unknown] food supplemt, lactose-reduced 0.04 gram-1 kcal/mL oral liquid 1 ea PO BID #1 ml 07/14/20 [Last Taken Unknown] sennosides 8.6 mg tablet 17.2 mg PO DAILY PRN #1 tab 07/14/20 [Last Taken Unknown] wheat dextrin 3 gram/4 gram oral powder 4 g PO DAILY PRN #1 g 07/14/20 [Last Ta yung Unknown] diclofenac sodium 1 % topical gel 2 g TP QID PRN #1 g 08/10/20 [Last Taken Unknown] benzonatate 200 mg capsule 200 mg PO TID PRN #1 cap 08/25/20 [Last Taken Unknown] Bisacodyl 10 mg RC Q24H PRN 08/26/20 [Last Taken Unknown] melatonin 5 mg tablet 5 mg PO HS #1 tab 08/26/20 [Last Taken Unknown] guaiFENesin [Expectorant] 200 mg PO Q4H PRN 09/02/20 [Last Taken Unknown] Exam - Exam Vital Signs: Vital Signs - Last Taken Temp 36.2 C 09/02/20 18:44 Pulse 61 09/02/20 18:44 Resp 20 09/02/20 18:44 BP 141/47 09/02/20 18:44 Pulse Ox 98 09/02/20 18:44 Constitutional: Present: Alert, Oriented x3, Cooperative, Mild distress - acutely ill, Elderly ENT Exam: Present: pharynx normal, hard of hearing. Absent: nasal drainage, pharyngeal erythema Eye Exam: bilateral eye: normal inspection, EOMI Neck: Present: non-tender, supple, trachea midline Back Exam: Present: vertebral tenderness. Absent: CVA tenderness (R), CVA tenderness (L) Respiratory: Present: no respiratory distress, crackles - RLL. Absent: rales, rhonchi Cardiovascular/Chest: Present: systolic murmur - 2/6, irregularly irregular Peripheral Pulses: dorsalis-pedis (R): 2+, dorsalis-pedis (L): 2+ Abdomen: Present: Normal bowel sounds, soft, no rebound tenderness, suprapubic tenderness. Absent: guarding, rigidity /Rectal: Present: Exam deferred Extremity: Present: non-tender, no pedal edema Skin Exam: Present: normal color, warm/dry Neurologic: Present: no motor/sensory deficits, alert, normal mood/affect, oriented x 3 Appearance: Present: appropriate appearance, appropriate insight Eye contact: Present: cooperative, good eye contact Thoughts: Present: normal thought pattern, normal mood /affect Diagnostic Studies: Abnormal Lab Results 09/02/20 09/02/20 09/02/20 Range/Units 13:10 13:30 13:30 WBC 13.0 H (4.0-10.5) K/mm3 RBC 3.13 L (4.2-5.4) M/mm3 Hgb 9.8 L (12.5-16.0) gm/dL Hct 29.5 L (37.0-47.0) % MCH 31.3 H (27-31) pg Immature Gran % (Auto) 0.60 H (0.001-0.429) % Immature Gran # (Auto) 0.08 H (0.000-0.0310) K/mm3 Neutrophils % 84.4 H (42-75.0) % Lymphocytes % 8.8 L (20-51) % Neutrophils # 10.9 H (1.3-6.0) K/mm3 Lymphocytes # 1.14 L (1.5-3.5) k/mm3 Sodium 131 L (132-142) mmol/L Potassium 2.5 L (3.4-4.6) mmol/L Chloride 94 L (97-106) mmol/L Carbon Dioxide 33.0 H (24-32.6) mmol/L Anion Gap 6.5 L (6.8-13.8) mmol/L Random Glucose 130 H (70-110) mg/dL Lactic Acid, Venous (0.4-2.0) mmol/L ALT 16 L (19-67) U/L Total Protein 5.3 L (6.2-8.2) gm/dL Albumin 2.0 L (3.4-5.0) gm/dl Urine Protein (NEGATIVE) mg/dL Urine Blood (NEGATIVE) /ul Urine Nitrate (NEGATIVE) Urine Urobilinogen (NORMAL) EU/dl Ur Leukocyte Esterase (NEGATIVE) /ul Urine RBC (0-5) /hpf Urine WBC (0-5) /hpf Urine Bacteria (NONE) Stl C.difficile Tox A&B Positive H (Negative) 09/02/20 09/02/20 Range/Units 13:30 13:50 WBC (4.0-10.5) K/mm3 RBC (4.2-5.4) M/mm3 Hgb (12.5-16.0) gm/dL Hct (37.0-47.0) % MCH (27-31) pg Immature Gran % (Auto) (0.001-0.429) % Immature Gran # (Auto) (0.000-0.0310) K/mm3 Neutrophils % (42-75.0) % Lymphocytes % (20-51) % Neutrophils # (1.3-6.0) K/mm3 Lymphocytes # (1.5-3.5) k/mm3 Sodium (132-142) mmol/L Potassium (3.4-4.6) mmol/L Chloride (97-106) mmol/L Carbon Dioxide (24-32.6) mmol/L Anion Gap (6.8-13.8) mmol/L Random Glucose (70-110) mg/dL Lactic Acid, Venous 2.1 H (0.4-2.0) mmol/L ALT (19-67) U/L Total Protein (6.2-8.2) gm/dL Albumin (3.4-5.0) gm/dl Urine Protein 30 H (NEGATIVE) mg/dL Urine Blood 250 H (NEGATIVE) /ul Urine Nitrate Positive H (NEGATIVE) Urine Urobilinogen 2.0 H (NORMAL) EU/dl Ur Leukocyte Esterase 100 H (NEGATIVE) /ul Urine RBC >50 H (0-5) /hpf Urine WBC >50 H (0-5) /hpf Urine Bacteria 4+ H (NONE) Stl C.difficile Tox A&B (Negative) Laboratory Results WBC 13.0 K/mm3 (4.0-10.5) H 09/02/20 13:30 RBC 3.13 M/mm3 (4.2-5.4) L 09/02/20 13:30 Hgb 9.8 gm/dL (12.5-16.0) L 09/02/20 13:30 Hct 29.5 % (37.0-47.0) L 09/02/20 13:30 MCV 94.2 fl (78-100) 09/02/20 13:30 MCH 31.3 pg (27-31) H 09/02/20 13:30 MCHC 33.2 g/dl (32-36) 09/02/20 13:30 RDW 12.6 % (11.5-14.0) 09/02/20 13:30 Plt Count 245 K/mm3 (150-450) 09/02/20 13:30 MPV 9.3 fl (8-12.5) 09/02/20 13:30 Immature Gran % (Auto) 0.60 % (0.001-0.429) H 09/02/20 13:30 Immature Gran # (Auto) 0.08 K/mm3 (0.000-0.0310) H 09/02/20 13:30 Neutrophils % 84.4 % (42-75.0) H 09/02/20 13:30 Lymphocytes % 8.8 % (20-51) L 09/02/20 13:30 Monocytes % 6.0 % (0.0-9) 09/02/20 13:30 Eosinophils % 0.0 % (0.0-3.0) 09/02/20 13:30 Basophils % 0.2 % (0.0-1.0) 09/02/20 13:30 Nucleated RBC % 0.0 k/mm3 (0-1) 09/02/20 13:30 Neutrophils # 10.9 K/mm3 (1.3-6.0) H 09/02/20 13:30 Lymphocytes # 1.14 k/mm3 (1.5-3.5) L 09/02/20 13:30 Monocytes # 0.8 k/mm3 (0.0-1.0) 09/02/20 13:30 Eosinophils # 0.0 k/mm3 (0.0-0.7) 09/02/20 13:30 Absolute Basophils 0.0 k/mm3 (0.0-0.1) 09/02/20 13:30 Sodium 131 mmol/L (132-142) L 09/02/20 13:30 Plasma Sodium 131 mmol/L (130-142) 09/02/20 13:30 Potassium 2.5 mmol/L (3.4-4.6) L 09/02/20 13:30 Chloride 94 mmol/L (97-106) L 09/02/20 13:30 Carbon Dioxide 33.0 mmol/L (24-32.6) H 09/02/20 13:30 Anion Gap 6.5 mmol/L (6.8-13.8) L 09/02/20 13:30 BUN 11 mg/dL (3-23) 09/02/20 13:30 Creatinine 0.80 mg/dL (0.4-1.4) 09/02/20 13:30 Est GFR (Non-Af Amer) 72 mL/min (60-130) 09/02/20 13:30 BUN/Creatinine Ratio 13.8 (9.0-21.6) 09/02/20 13:30 Random Glucose 130 mg/dL (70-110) H 09/02/20 13:30 Lactic Acid, Venous 1.9 mmol/L (0.4-2.0) 09/02/20 16:10 Calcium 8.3 mg/dL (7.9-10.9) 09/02/20 13:30 Calcium Adj for Albumin 9.6 mg/dL (8.4-10.2) 09/02/20 13:30 Magnesium 1.6 mg/dL (1.2-2.8) 09/02/20 13:30 Total Bilirubin 0.6 mg/dL (0.0-1.1) 09/02/20 13:30 AST 22 U/L (0-48) 09/02/20 13:30 ALT 16 U/L (19-67) L 09/02/20 13:30 Alkaline Phosphatase 85 U/L (50-170) 09/02/20 13:30 Troponin I Less than 0.017 ng/mL (0.00-0.10) 09/02/20 13:30 Total Protein 5.3 gm/dL (6.2-8.2) L 09/02/20 13:30 Albumin 2.0 gm/dl (3.4-5.0) L 09/02/20 13:30 Urine Color Yellow 09/02/20 13:50 Urine Appearance Cloudy (CLEAR) 09/02/20 13:50 Urine pH 6.5 pH (5.0-7.0) 09/02/20 13:50 Ur Specific [place] 1.025 SP.GR. (1.005-1.010) 09/02/20 13:50 Urine Protein 30 mg/dL (NEGATIVE) H 09/02/20 13:50 Urine Glucose (UA) Negative mg/dL (NEGATIVE) 09/02/20 13:50 Urine Ketones Negative mg/dL (NEGATIVE) 09/02/20 13:50 Urine Blood 250 /ul (NEGATIVE) H 09/02/20 13:50 Urine Nitrate Positive (NEGATIVE) H 09/02/20 13:50 Urine Bilirubin Negative mg/dl (NEGATIVE) 09/02/20 13:50 Prot Sulfosalicylic Acd No Print 09/02/20 13:50 Urine Urobilinogen 2.0 EU/dl (NORMAL) H 09/02/20 13:50 Ur Leukocyte Esterase 100 /ul (NEGATIVE) H 09/02/20 13:50 Urine RBC >50 /hpf (0-5) H 09/02/20 13:50 Urine WBC >50 /hpf (0-5) H 09/02/20 13:50 Ur Epithelial Cells 0-5 /hpf (0-5) 09/02/20 13:50 Urine Bacteria 4+ (NONE) H 09/02/20 13:50 Urine Culture Comments Culture to follow 09/02/20 13:50 Stl C.difficile Tox A&B Positive (Negative) H 09/02/20 13:10 Assessment/Plan - Narrative Narrative: 84-year-old female with history of atrial fibrillation, hypertension, chronic lower back pain who was admitted to the hospital due to pneumonia, UTI, and C. difficile diarrhea. Patient in the ER received Rocephin and azithromycin. She was started on oral vancomycin when she got to the floor. Patient under contact precautions. Patient initially had an elevated lactic acid level to return to normal upon repeat. Patient did receive a liter of normal saline bolus in the ER. Patient does not appear to be dry clinically. Patient also was given potassium which will be continued daily till potassium returned back to normal. Repeat today showed to be up from 2.5-3.2. Patient restarted on her home medications including lisinopril for her blood pressure. Patient on amiodarone for rate control but is not on an anticoagulant which is appropriate due to her fall risk. SCDs ordered to be worn while she is in bed. Patient on tramadol chronically for back pain, this was restarted. Patient with fall precautions in place. Rocephin to be continued for 3 days surmise will be continued for 5 days. Oral vancomycin for 10 days. Awaiting culture for speciation on her UTIcurrently growing 100,000 colony-forming units of gram-negative bacilli. Patient started on regular diet CDs for DVT prophylaxis, nurse to call questions or concerns. Repeat CBC and CMP in the morning. Will monitor potassium. Greater than 1 hour critical care time spent with patient today, patient is DNR which was discussed in detail. - Assessment/Plan (1) Pneumonia Problem: Acute (2) UTI (urinary tract infection) Problem: Acute (3) Clostridioides difficile diarrhea Problem: Acute (4) Atrial fibrillation Problem: Chronic Qualifiers: Atrial fibrillation type: unspecified Qualified Code(s): I48.91 - Unspecified atrial fibrillation (5) Chronic back pain greater than 3 months duration Problem: Chronic (6) Hypertension Problem: Acute Qualifiers: Hypertension type: essential hypertension Qualified Code(s): I10 - Essential (primary) hypertension (7) Recurrent falls Problem: Chronic (8) Hypokalemia Problem: Acute (9) Generalized weakness Problem: Acute
[2020-09-02] MEDS: ACETAMINOPHEN 325 MG TABLET PO SCH (20:16)
[2020-09-02] MEDS: SIMVASTATIN 20 MG TABLET PO SCH (20:16)
[2020-09-02] MEDS: MELATONIN 3,000 MCG TABLET PO SCH (20:17)
[2020-09-03] MEDS: VANCOMYCIN HCL 50 MG/ML BTL PO SCH ×4 (04:46→22:16)
[2020-09-03] MEDS: BENZONATATE 100 MG CAPSULE PO PRN (06:03)
[2020-09-03] MEDS: ASPIRIN 81 MG TABLET.DR PO SCH (08:30)
[2020-09-03] MEDS: ACETAMINOPHEN 325 MG TABLET PO SCH ×3 (08:30→21:04)
[2020-09-03] MEDS: POTASSIUM CHLORIDE 20 MEQ TABLET.SA PO SCH (08:30)
[2020-09-03] MEDS: AMIODARONE HCL 200 MG TABLET PO SCH (08:31)
[2020-09-03] MEDS: LISINOPRIL 20 MG TABLET PO SCH (08:31)
[2020-09-03 09:19] LABS: Hemoglobin 9.6 gm/dL (12.5-16.0); Mean Cell Volume 94.9 fl (78-100); Mean Corpuscular Hemoglobin 30.4 pg (27-31); Mean Platelet Volume 9.2 fl (8-12.5); Neutrophil # 7.3 K/mm3 (1.3-6.0); Neutrophil % 79.2 % (42-75.0); Platelet Count 244 K/mm3 (150-450); Red Blood Count 3.16 M/mm3 (4.2-5.4); Red Cell Distribution Width 12.8 % (11.5-14.0); White Blood Count 9.2 K/mm3 (4.0-10.5)
[2020-09-03 09:34] LABS: Anion Gap 7.3 mmol/L (6.8-13.8); BUN/Creatinine Ratio 10.1 (9.0-21.6); Bilirubin, Total 0.5 mg/dL (0.0-1.1); Ca. Corrected For Albumin 9.3 mg/dL (8.4-10.2); Carbon Dioxide 31.9 mmol/L (24-32.6); Potassium 3.2 mmol/L (3.4-4.6); Total Protein 5.1 gm/dL (6.2-8.2)
--- NOTE | 2020-09-03 12:04 | PN ---
Subjective - Date and Time Seen Date: 09/03/20 Time: 12:03 Subjective Narrative: Patient is very pleasant this morning when rounded on. She had no concerns at this time and states that she is starting to feel better. She had no acute events overnight. Her white count decreased from 13-9.2. Her potassium improved from 2.5 up to 3.2. Initial blood cultures negative for infection. Still waiting for finalization of her urine cultures but it is growing out gram-negative bacilli. Will order PT today to help her regain her strength. Patient still with incontinence of her stool. Objective - Review of Systems Generalized/Overall Review: Reports: Weakness. Denies: Chills, Fever EENTM: Reports: No Symptoms Reported Respiratory: Denies: Cough, Shortness of Breath Cardiac: Denies: Chest Pain, Edema Abdominal: Reports: Abdominal Pain Genitourinary Symptoms: Denies: Burning, Urgency, Frequency Musculoskeletal Complaints: Reports: Back Pain Neurological: Reports: No Symptoms Reported Skin: Reports: No Symptoms Reported Endocrine: Reports: No Symptoms Reported - Vitals Vitals: Last Vital Signs Temp 36.9 C 09/03/20 11:00 Pulse 84 09/03/20 11:00 Resp 18 09/03/20 11:00 BP 116/64 09/03/20 11:00 Pulse Ox 94 09/03/20 11:00 - Abnormal Lab Findings Abnormal Lab Findings: Abnormal Lab Results 09/02/20 09/02/20 09/02/20 Range/Units 13:10 13:30 13:30 WBC 13.0 H (4.0-10.5) K/mm3 RBC 3.13 L (4.2-5.4) M/mm3 Hgb 9.8 L (12.5-16.0) gm/dL Hct 29.5 L (37.0-47.0) % MCH 31.3 H (27-31) pg Immature Gran % (Auto) 0.60 H (0.001-0.429) % Immature Gran # (Auto) 0.08 H (0.000-0.0310) K/mm3 Neutrophils % 84.4 H (42-75.0) % Lymphocytes % 8.8 L (20-51) % Neutrophils # 10.9 H (1.3-6.0) K/mm3 Lymphocytes # 1.14 L (1.5-3.5) k/mm3 Sodium 131 L (132-142) mmol/L Potassium 2.5 L (3.4-4.6) mmol/L Chloride 94 L (97-106) mmol/L Carbon Dioxide 33.0 H (24-32.6) mmol/L Anion Gap 6.5 L (6.8-13.8) mmol/L Random Glucose 130 H (70-110) mg/dL Lactic Acid, Venous (0.4-2.0) mmol/L ALT 16 L (19-67) U/L Total Protein 5.3 L (6.2-8.2) gm/dL Albumin 2.0 L (3.4-5.0) gm/dl Urine Protein (NEGATIVE) mg/dL Urine Blood (NEGATIVE) /ul Urine Nitrate (NEGATIVE) Urine Urobilinogen (NORMAL) EU/dl Ur Leukocyte Esterase (NEGATIVE) /ul Urine RBC (0-5) /hpf Urine WBC (0-5) /hpf Urine Bacteria (NONE) Stl C.difficile Tox A&B Positive H (Negative) 09/02/20 09/02/20 09/03/20 Range/Units 13:30 13:50 09:10 WBC (4.0-10.5) K/mm3 RBC 3.16 L (4.2-5.4) M/mm3 Hgb 9.6 L (12.5-16.0) gm/dL Hct 30.0 L (37.0-47.0) % MCH (27-31) pg Immature Gran % (Auto) 1.20 H (0.001-0.429) % Immature Gran # (Auto) 0.11 H (0.000-0.0310) K/mm3 Neutrophils % 79.2 H (42-75.0) % Lymphocytes % 12.5 L (20-51) % Neutrophils # 7.3 H (1.3-6.0) K/mm3 Lymphocytes # 1.15 L (1.5-3.5) k/mm3 Sodium (132-142) mmol/L Potassium (3.4-4.6) mmol/L Chloride (97-106) mmol/L Carbon Dioxide (24-32.6) mmol/L Anion Gap (6.8-13.8) mmol/L Random Glucose (70-110) mg/dL Lactic Acid, Venous 2.1 H (0.4-2.0) mmol/L ALT (19-67) U/L Total Protein (6.2-8.2) gm/dL Albumin (3.4-5.0) gm/dl Urine Protein 30 H (NEGATIVE) mg/dL Urine Blood 250 H (NEGATIVE) /ul Urine Nitrate Positive H (NEGATIVE) Urine Urobilinogen 2.0 H (NORMAL) EU/dl Ur Leukocyte Esterase 100 H (NEGATIVE) /ul Urine RBC >50 H (0-5) /hpf Urine WBC >50 H (0-5) /hpf Urine Bacteria 4+ H (NONE) Stl C.difficile Tox A&B (Negative) 09/03/20 Range/Units 09:10 WBC (4.0-10.5) K/mm3 RBC (4.2-5.4) M/mm3 Hgb (12.5-16.0) gm/dL Hct (37.0-47.0) % MCH (27-31) pg Immature Gran % (Auto) (0.001-0.429) % Immature Gran # (Auto) (0.000-0.0310) K/mm3 Neutrophils % (42-75.0) % Lymphocytes % (20-51) % Neutrophils # (1.3-6.0) K/mm3 Lymphocytes # (1.5-3.5) k/mm3 Sodium (132-142) mmol/L Potassium 3.2 L D (3.4-4.6) mmol/L Chloride 96 L (97-106) mmol/L Carbon Dioxide (24-32.6) mmol/L Anion Gap (6.8-13.8) mmol/L Random Glucose (70-110) mg/dL Lactic Acid, Venous (0.4-2.0) mmol/L ALT 15 L (19-67) U/L Total Protein 5.1 L (6.2-8.2) gm/dL Albumin 2.0 L (3.4-5.0) gm/dl Urine Protein (NEGATIVE) mg/dL Urine Blood (NEGATIVE) /ul Urine Nitrate (NEGATIVE) Urine Urobilinogen (NORMAL) EU/dl Ur Leukocyte Esterase (NEGATIVE) /ul Urine RBC (0-5) /hpf Urine WBC (0-5) /hpf Urine Bacteria (NONE) Stl C.difficile Tox A&B (Negative) - Exam Constitutional: Present: Alert, Oriented x3, No distress, Elderly ENT Exam: Present: hard of hearing Respiratory: Present: no respiratory distress, crackles - RLL Cardiovascular/Chest: Present: systolic murmur, irregularly irregular Abdomen: Present: Normal bowel sounds, soft, nondistended, suprapubic tenderness Neurologic: Present: alert, normal mood/affect, oriented x 3. Absent: motor weakness, sensory deficit Appearance: Present: appropriate appearance, appropriate insight Eye contact: Present: cooperative, good eye contact Thoughts: Present: normal thought pattern, normal mood /affect Assessment/Plan Plan Narrative: 84-year-old female with history of atrial fibrillation, hypertension, chronic lower back pain who was admitted to the hospital due to pneumonia, UTI, and C. difficile diarrhea. Patient currently being treated for the above-stated issues. She is currently on Rocephin and azithromycin for her UTI and her pneumonia. She is on oral vancomycin for her C. difficile diarrhea. Waiting for sensitivities to come back for UTI, we will try to de-escalate her antibiotic requirements as soon as possible. Patient will require 10 days of oral vancomycin though it may need secondary agent (Flagyl) if not improving. She is still with incontinent stools. Contact precautions still in place. Patient blood pressure well controlled currently with chronic medications, no changes needed for this. Patient with chronic back pain And generalized weakness, PT ordered to evaluate her for this. Patient vital signs been stable she been afebrile. Patient currently feels a little better than she has over last week. Her potassium is improving. Her CBC shows her white count has decreased overnight. Repeat CBC and CMP in the morning. SCDs to be worn for DVT prophylaxis. Nurse to call questions or concerns. - Problems/Diagnosis (1) Pneumonia Problem: Acute (2) UTI (urinary tract infection) Problem: Acute (3) Clostridioides difficile diarrhea Problem: Acute (4) Atrial fibrillation Problem: Chronic Qualifiers: Atrial fibrillation type: unspecified Qualified Code(s): I48.91 - Unspecified atrial fibrillation (5) Chronic back pain greater than 3 months duration Problem: Chronic (6) Hypertension Problem: Acute Qualifiers: Hypertension type: essential hypertension Qualified Code(s): I10 - Essential (primary) hypertension (7) Recurrent falls Problem: Chronic (8) Hypokalemia Problem: Acute (9) Generalized weakness Problem: Acute
[2020-09-03] MEDS: AZITHROMYCIN 250 MG in DEXTROSE 5 % IN WATER 250 ML IV SCH ×2 (15:54)
[2020-09-03] MEDS: traMADol HCL 50 MG TABLET PO PRN (18:36)
[2020-09-03] MEDS: SIMVASTATIN 20 MG TABLET PO SCH (21:04)
[2020-09-03] MEDS: MELATONIN 3,000 MCG TABLET PO SCH (21:04)
[2020-09-04] MEDS: VANCOMYCIN HCL 50 MG/ML BTL PO SCH ×4 (04:45→22:34)
[2020-09-04] MEDS: BENZONATATE 100 MG CAPSULE PO PRN (04:50)
[2020-09-04] MEDS: LISINOPRIL 20 MG TABLET PO SCH (08:35)
[2020-09-04] MEDS: AMIODARONE HCL 200 MG TABLET PO SCH (08:35)
[2020-09-04] MEDS: POTASSIUM CHLORIDE 20 MEQ TABLET.SA PO SCH (08:35)
[2020-09-04] MEDS: ASPIRIN 81 MG TABLET.DR PO SCH (08:35)
[2020-09-04] MEDS: ACETAMINOPHEN 325 MG TABLET PO SCH ×3 (08:35→20:22)
[2020-09-04 12:11] LABS: Hemoglobin 10.9 gm/dL (12.5-16.0); Mean Cell Volume 94.6 fl (78-100); Mean Corpuscular Hemoglobin 31.2 pg (27-31); Mean Platelet Volume 9.1 fl (8-12.5); Neutrophil # 7.3 K/mm3 (1.3-6.0); Neutrophil % 77.7 % (42-75.0); Platelet Count 260 K/mm3 (150-450); Red Blood Count 3.49 M/mm3 (4.2-5.4); Red Cell Distribution Width 12.7 % (11.5-14.0); White Blood Count 9.4 K/mm3 (4.0-10.5)
[2020-09-04 12:19] LABS: Albumin * 2.2 gm/dl (3.4-5.0); Anion Gap 8.5 mmol/L (6.8-13.8); BUN/Creatinine Ratio 10.3 (9.0-21.6); Bilirubin, Total 0.5 mg/dL (0.0-1.1); Ca. Corrected For Albumin 9.2 mg/dL (8.4-10.2); Calcium * 8.1 mg/dL (7.9-10.9); Carbon Dioxide 29.9 mmol/L (24-32.6); Potassium 4.4 mmol/L (3.4-4.6); Total Protein 5.6 gm/dL (6.2-8.2)
[2020-09-04] MEDS: traMADol HCL 50 MG TABLET PO PRN (12:35)
--- NOTE | 2020-09-04 12:46 | PN ---
Subjective - Date and Time Seen Date: 09/04/20 Time: 12:46 Subjective Narrative: Ms. Norris was very pleasant this morning when evaluated. Her only concern at this time is her back pain. She feels like her breathing and suprapubic pain is improving. She still has incontinence stools from her C. difficile diarrhea. Her vital signs been stable and she been afebrile. White count still in appropriate range after being started antibiotics. Potassium back to normal range at 4.4. Sensitivities for UTI came back, she is pansensitive. We will continue Rocephin as this is treating her pneumonia and her UTI. Will DC Rocephin and azithromycin at day 5, she will need an additional 5 days of oral vancomycin for C. difficile diarrhea. Objective - Review of Systems Generalized/Overall Review: Denies: Weakness, Chills, Fever EENTM: Reports: No Symptoms Reported Respiratory: Denies: Cough, Shortness of Breath Cardiac: Denies: Chest Pain, Edema Abdominal: Reports: Abdominal Pain - Minimal today. Denies: Nausea, Vomiting Genitourinary Symptoms: Reports: No Symptoms Reported Musculoskeletal Complaints: Reports: Back Pain - Chronic back pain - Vitals Vitals: Last Vital Signs Temp 36.3 C 09/04/20 10:37 Pulse 61 09/04/20 10:37 Resp 14 09/04/20 10:37 BP 139/53 09/04/20 10:37 Pulse Ox 98 09/04/20 10:37 - Abnormal Lab Findings Abnormal Lab Findings: Abnormal Lab Results 09/04/20 09/04/20 Range/Units 11:58 11:58 RBC 3.49 L (4.2-5.4) M/mm3 Hgb 10.9 L (12.5-16.0) gm/dL Hct 33.0 L (37.0-47.0) % MCH 31.2 H (27-31) pg Immature Gran % (Auto) 1.00 H (0.001-0.429) % Immature Gran # (Auto) 0.09 H (0.000-0.0310) K/mm3 Neutrophils % 77.7 H (42-75.0) % Lymphocytes % 12.9 L (20-51) % Neutrophils # 7.3 H (1.3-6.0) K/mm3 Lymphocytes # 1.21 L (1.5-3.5) k/mm3 Sodium 130 L (132-142) mmol/L Chloride 96 L (97-106) mmol/L Total Protein 5.6 L (6.2-8.2) gm/dL Albumin 2.2 L (3.4-5.0) gm/dl - Exam Constitutional: Present: Alert, Oriented x3, Mild distress - Back pain, Elderly ENT Exam: Present: hearing grossly normal Neck: Present: non-tender, supple Respiratory: Present: lungs clear, normal breath sounds Cardiovascular/Chest: Present: no murmur - No murmur heard today, likely systolic flow murmur previously, irregularly irregular Abdomen: Present: soft, suprapubic tenderness - Minimal Neurologic: Present: alert, normal mood/affect, oriented x 3 Appearance: Present: appropriate appearance, appropriate insight Eye contact: Present: cooperative, good eye contact Thoughts: Present: normal thought pattern, normal mood /affect Assessment/Plan Plan Narrative: 84-year-old female with history of atrial fibrillation, hypertension, chronic lower back pain who was admitted to the hospital due to pneumonia, UTI, and C. difficile diarrhea. Continue current treatment for the above-stated issues. She is currently on Rocephin and azithromycin for her UTI and her pneumonia. She is on oral vancomycin for her C. difficile diarrhea. UTI sensitivities returned. Blood culture negative at 48 hours for growth. Pansensitive UTI, continue Rocephin and azithromycin as we will treat both her UTI and her pneumonia with this. DC both of these antibiotics in 3 days. Patient will require 10 days of oral vancomycin though it may need secondary agent (Flagyl) if not improving. She is still with incontinent stools. Contact precautions still in place. Patient blood pressure well controlled currently with chronic medications, no changes needed for this. Patient with chronic back pain And generalized weakness, PT ordered. Patient vital signs been stable she been afebrile. Patient currently feels a little better than she has over last week. Potassium back to within normal range. White blood cell count still within normal range. Repeat CBC and CMP in the morning. SCDs to be worn for DVT prophylaxis. Nurse to call questions or concerns. - Problems/Diagnosis (1) Pneumonia Problem: Acute (2) UTI (urinary tract infection) Problem: Acute (3) Clostridioides difficile diarrhea Problem: Acute (4) Atrial fibrillation Problem: Chronic Qualifiers: Atrial fibrillation type: unspecified Qualified Code(s): I48.91 - Unspecified atrial fibrillation (5) Chronic back pain greater than 3 months duration Problem: Chronic (6) Hypertension Problem: Acute Qualifiers: Hypertension type: essential hypertension Qualified Code(s): I10 - Essential (primary) hypertension (7) Recurrent falls Problem: Chronic (8) Hypokalemia Problem: Acute (9) Generalized weakness Problem: Acute
[2020-09-04] MEDS: AZITHROMYCIN 250 MG in DEXTROSE 5 % IN WATER 250 ML IV SCH ×2 (15:14)
[2020-09-04] MEDS: MELATONIN 3,000 MCG TABLET PO SCH (20:22)
[2020-09-04] MEDS: SIMVASTATIN 20 MG TABLET PO SCH (20:22)
[2020-09-05] MEDS: VANCOMYCIN HCL 50 MG/ML BTL PO SCH ×2 (05:22→12:00)
[2020-09-05] MEDS: AMIODARONE HCL 200 MG TABLET PO SCH (08:32)
[2020-09-05] MEDS: LISINOPRIL 20 MG TABLET PO SCH (08:32)
[2020-09-05] MEDS: ASPIRIN 81 MG TABLET.DR PO SCH (08:32)
[2020-09-05] MEDS: ACETAMINOPHEN 325 MG TABLET PO SCH (08:35)
--- NOTE | 2020-09-05 12:33 | DS ---
(1) Non-healing stage 2 or greater wound Problem: Acute (2) Pneumonia Problem: Acute (3) UTI (urinary tract infection) Problem: Acute (4) Generalized weakness Problem: Acute (5) Clostridioides difficile diarrhea Problem: Acute Date of Discharge:: 09/05/20 Hospital Course: 84-year-old female with a past medical history of atrial fibrillation, CAD, COVID-19, hypertension, urinary retention with Islas catheter in place, hyperlipidemia presents from the assisted with increased weakness. She was found to have pneumonia, C. difficile infection and a UTI. She was started on azithromycin, ceftriaxone and vancomycin. She is feeling better today. Diarrhea has improved. She has a stage II coccyx. She is eating and drinking well. She is stable for discharge [facility]. She will complete her course of vancomycin, azithromycin and Cefpodoxime for the next few days. Follow-up with me in the office in 1 to 2 weeks. Procedures Performed: none Results and Findings: Pending Mircobiology Results 09/02/20 13:30 Blood Blood Culture - Preliminary NO GROWTH AFTER 48 HOURS 09/02/20 14:34 Blood Blood Culture - Preliminary NO GROWTH AFTER 48 HOURS Lab Pending Results 09/02/20 13:10: Stl C.difficile Tox A&B Positive H 09/02/20 13:30: WBC 13.0 H, RBC 3.13 L, Hgb 9.8 L, Hct 29.5 L, MCV 94.2, MCH 31.3 H, MCHC 33.2, RDW 12.6, Plt Count 245, MPV 9.3, Immature Gran % (Auto) 0.60 H, Immature Gran # (Auto) 0.08 H, Neutrophils % 84.4 H, Lymphocytes % 8.8 L, Monocytes % 6.0, Eosinophils % 0.0, Basophils % 0.2, Nucleated RBC % 0.0, Neutrophils # 10.9 H, Lymphocytes # 1.14 L, Monocytes # 0.8, Eosinophils # 0.0, Absolute Basophils 0.0 09/02/20 13:30: Sodium 131 L, Plasma Sodium 131, Potassium 2.5 L, Chloride 94 L, Carbon Dioxide 33.0 H, Anion Gap 6.5 L, BUN 11, Creatinine 0.80, Est GFR (Non-Af Amer) 72, BUN/Creatinine Ratio 13.8, Random Glucose 130 H, Calcium 8.3, Calcium Adj for Albumin 9.6, Total Bilirubin 0.6, AST 22, ALT 16 L, Alkaline Phosphatase 85, Troponin I Less than 0.017, Total Protein 5.3 L, Albumin 2.0 L 09/02/20 13:30: Lactic Acid, Venous 2.1 H 09/02/20 13:30: Magnesium 1.6 09/02/20 13:50: Urine Color Yellow, Urine Appearance Cloudy, Urine pH 6.5, Ur Specific [place] 1.025, Urine Protein 30 H, Urine Glucose (UA) Negative, Urine Ketones Negative, Urine Blood 250 H, Urine Nitrate Positive H, Urine Bilirubin Negative, Prot Sulfosalicylic Acd No Print, Urine Urobilinogen 2.0 H, Ur Leukocyte Esterase 100 H, Urine RBC >50 H, Urine WBC >50 H, Ur Epithelial Cells 0-5, Urine Bacteria 4+ H, Urine Culture Comments Culture to follow 09/02/20 16:10: Lactic Acid, Venous 1.9 09/03/20 09:10: WBC 9.2 D, RBC 3.16 L, Hgb 9.6 L, Hct 30.0 L, MCV 94.9, MCH 30.4, MCHC 32.0, RDW 12.8, Plt Count 244, MPV 9.2, Immature Gran % (Auto) 1.20 H, Immature Gran # (Auto) 0.11 H, Neutrophils % 79.2 H, Lymphocytes % 12.5 L, Monocytes % 6.6, Eosinophils % 0.0, Basophils % 0.5, Nucleated RBC % 0.0, Neutrophils # 7.3 H, Lymphocytes # 1.15 L, Monocytes # 0.6, Eosinophils # 0.0, Absolute Basophils 0.1 09/03/20 09:10: Sodium 132, Plasma Sodium 132, Potassium 3.2 L D, Chloride 96 L, Carbon Dioxide 31.9, Anion Gap 7.3, BUN 7, Creatinine 0.69, Est GFR (Non-Af Amer) 86, BUN/Creatinine Ratio 10.1, Random Glucose 88 D, Calcium 8.0, Calcium Adj for Albumin 9.3, Total Bilirubin 0.5, AST 24, ALT 15 L, Alkaline Phosphatase 83, Total Protein 5.1 L, Albumin 2.0 L 09/04/20 11:58: WBC 9.4, RBC 3.49 L, Hgb 10.9 L, Hct 33.0 L, MCV 94.6, MCH 31.2 H, MCHC 33.0, RDW 12.7, Plt Count 260, MPV 9.1, Immature Gran % (Auto) 1.00 H, Immature Gran # (Auto) 0.09 H, Neutrophils % 77.7 H, Lymphocytes % 12.9 L, Monocytes % 5.4, Eosinophils % 2.6, Basophils % 0.4, Nucleated RBC % 0.0, Neutrophils # 7.3 H, Lymphocytes # 1.21 L, Monocytes # 0.5, Eosinophils # 0.2, Absolute Basophils 0.0 09/04/20 11:58: Sodium 130 L, Plasma Sodium 130, Potassium 4.4 D, Chloride 96 L, Carbon Dioxide 29.9, Anion Gap 8.5, BUN 8, Creatinine 0.78, Est GFR (Non-Af Amer) 74, BUN/Creatinine Ratio 10.3, Random Glucose 110, Calcium 8.1, Calcium Adj for Albumin 9.2, Total Bilirubin 0.5, AST 35, ALT 20, Alkaline Phosphatase 93, Total Protein 5.6 L, Albumin 2.2 L Discharge Location: [facility] Disposition: SNF Condition: Fair Level of Care: SNF Discharge Activity: Activity as tolerated Discharge Diet: General/regular food [facility] Therapy: Physical Therapy, Occupation Therapy Referrals: Rafaela Pena MD [Primary Care Provider] - Additional Patient Instructions (free text): Resume previous orders- SNF with PT, OT at [facility]- please fax discharge summary, orders, and medications and call report. She will need a urology follow-up for the Islas catheter and urinary retention as an outpatient. Prescriptions (Any new or edited meds): Azithromycin 250 mg PO DAILY #2 tab Transmission Status: Pending to [facility] Cefpodoxime Proxetil 200 mg PO BID #4 tab Transmission Status: Pending to [facility] Vancomycin HCl [Vancomycin] 125 mg PO Q6H #1 btl Transmission Status: Pending to [facility] Complete Home Medications List: Complete Home Medication List: Acetaminophen 325 mg PO 0900,1500,2100 04/29/19 Aspirin [Aspirin EC] 81 mg PO DAILY 06/29/19 Amiodarone HCl 100 mg PO DAILY 12/21/19 simvastatin 20 mg tablet 20 mg PO HS tab 03/17/20 Lisinopril [Zestril] 20 mg PO DAILY #30 tab 06/30/20 calcium carbonate-vitamin D3 600 mg (1,500 mg)-800 unit tablet 1 tab PO DAILY 07/08/20 tramadol 50 mg tablet 50 mg PO DAILY #30 tab 07/08/20 tramadol 50 mg tablet 50 mg PO QPM PRN #30 tab 07/08/20 docusate sodium 50 mg capsule 50 mg PO BID PRN #1 cap 07/14/20 food supplemt, lactose-reduced 0.04 gram-1 kcal/mL oral liquid 1 ea PO BID #1 ml 07/14/20 sennosides 8.6 mg tablet 17.2 mg PO DAILY PRN #1 tab 07/14/20 wheat dextrin 3 gram/4 gram oral powder 4 g PO DAILY PRN #1 g 07/14/20 diclofenac sodium 1 % topical gel 2 g TP QID PRN #1 g 08/10/20 benzonatate 200 mg capsule 200 mg PO TID PRN #1 cap 08/25/20 Bisacodyl 10 mg RC Q24H PRN 08/26/20 melatonin 5 mg tablet 5 mg PO HS #1 tab 08/26/20 guaiFENesin [Expectorant] 200 mg PO Q4H PRN 09/02/20 Azithromycin 250 mg PO DAILY #2 tab 09/05/20 Cefpodoxime Proxetil 200 mg PO BID #4 tab 09/05/20 Vancomycin HCl [Vancomycin] 125 mg PO Q6H #1 btl 09/05/20 Forms: Patient Portal Registration
[2020-09-05 13:57] VITALS: BP 112/45
== END 2020-09-05 14:15 | DRG 371 ==
LOC: MS 13:01 → ER 13:01 → MS 16:35
PROVIDERS: ADMIT Family Medicine; ATTEND Internal Medicine
DX: J18.9 Pneumonia, unspecified organism; E87.6 Hypokalemia; M54.5 Low back pain; Z91.81 History of falling; L89.152 Pressure ulcer of sacral region, stage 2; A04.72 Enterocolitis due to Clostridium difficile, not specified as recurrent; N39.0 Urinary tract infection, site not specified; R29.6 Repeated falls; I48.20 Chronic atrial fibrillation, unspecified; G89.29 Other chronic pain; R53.1 Weakness; Z95.0 Presence of cardiac pacemaker; Z86.19 Personal history of other infectious and parasitic diseases